=== PATIENT | female | born 1995 | race Two or more races ===

== ENCOUNTER 2020-12-14 10:10 | Outpatient (REF) | payer OTHER, SELFPAY ==
[2020-12-14 11:53] LABS: TSH reflex Free T4 0.79 uIU/mL (0.32-4.0)
[2020-12-14 12:00] LABS: Alanine Aminotransferase 24 U/L (0-31); Albumin Level 4.4 g/dL (3.5-5.0); Alkaline Phosphatase 74 U/L (39-117); Anion Gap 12 (12-20); Aspartate Amino Transferase 16 U/L (5-31); Bilirubin Total 0.9 mg/dL (0.0-1.0); Blood Urea Nitrogen 14 mg/dL (9-16); Calcium 9.1 mg/dL (8.4-10.2); Carbon Dioxide 28 mmol/L (22-29); Chloride 104 mmol/L (96-108); Cholesterol 160 mg/dL; Estimated Glomerular Filt Rate > 60; Glucose Fasting 111 mg/dL (60-99); HDL Cholesterol 44 mg/dL; LDL Cholesterol Calculated 85 mg/dl; Potassium 4.4 mmol/L (3.3-5.1); Sodium 140 mmol/L (135-145); Total Protein 7.3 g/dL (6.5-8.0); Triglycerides 157 mg/dL
== END 2020-12-14 10:11 | disposition home or self-care (01) ==
LOC: HO.HMGCLDS 10:10
PROVIDERS: PCP Nurse Practitioner Family; Visit Provider Nurse Practitioner Family
DX: Z00.00 Encounter for general adult medical examination without abnormal findings (principal)
CPT/HCPCS: 36415; 80053; 80061; 84443

== ENCOUNTER 2020-12-27 11:10 | Outpatient (REF) | payer OTHER, SELFPAY | END 2020-12-27 11:11 | disposition home or self-care (01) | LOC: HO.LAB 11:10 | PROVIDERS: Visit Provider Internal Medicine | DX: Z20.822 Contact with and (suspected) exposure to COVID-19 (principal) | CPT/HCPCS: 36415; C9803; U0003; U0005 ==

== ENCOUNTER 2021-04-18 10:56 | Emergency (ER) | payer OTHER, SELFPAY ==
--- NOTE | ~2021-04-18 | XR_ITS ---
EXAMINATION: XR CHEST CLINICAL INFORMATION: Cough. Epistaxis COMPARISON: Previous chest x-ray September 2018 TECHNIQUE: 2 views of the chest were obtained. FINDINGS: No significant abnormality is noted involving the heart, lungs, mediastinum, bony thorax or soft tissues. XR/XR chest 2V IMPRESSION: Unremarkable examination.
--- NOTE | ~2021-04-18 | US_ITS ---
EXAMINATION: US VENOUS ULTRASOUND WITH DOPPLER LOWER EXTREMITY, BILATERAL CLINICAL INFORMATION: Lower extremity pain. Assess for occult DVT. COMPARISON: Bilateral leg venous ultrasound 01/08/2016, CTA chest 01/25/2018. TECHNIQUE: Ultrasound of the deep veins is performed from the hip to the calf with compression sonography and color and pulse Doppler assessment. Spectral analysis with color-flow imaging is performed. Technically challenging exam secondary to patient body habitus. FINDINGS: RIGHT: There is normal venous compression and respiratory variation and augmented flow. The visualized common femoral vein, superficial femoral vein, profunda femoral vein, popliteal vein, and the trifurcation region shows no evidence of deep venous thrombosis. No popliteal fossa cyst demonstrated. LEFT: There is normal venous compression and respiratory variation and augmented flow. The visualized common femoral vein, superficial femoral vein, profunda femoral vein, popliteal vein, and the trifurcation region shows no evidence of deep venous thrombosis. No popliteal fossa cyst demonstrated. US/US venous duplex LE BI IMPRESSION: No DVT demonstrated in the bilateral lower extremity.
[2021-04-18 11:10] VITALS: BP 145/96; PULSE 99; RESP 18; TEMP 36.9; O2SAT 98; BMI 35.9
[2021-04-18 12:02] VITALS: BP 137/92; PULSE 94; RESP 18; O2SAT 98
--- NOTE | 2021-04-18 12:03 | PC.NURSE ---
pt reports episode in shower today where she was coughing and noticed blood in her phlegm. also reports nose bleed after getting out of shower. has h/a at this time. reports history of PE. denies SOB. vitals updated. waiting to be seen by provider.
--- NOTE | 2021-04-18 12:31 | ED_ITS ---
HPI - General Adult General Chief complaint: General Medical <BENNIE Broderick - Last Filed: 04/18/21 17:37> Stated complaint: coughing up blood <BENNIE Broderick - Last Filed: 04/18/21 17:37> Time Seen by Provider: 04/18/21 12:14 <BENNIE Broderick - Last Filed: 04/18/21 17:37> Source: patient and family <BENNIE Broderick - Last Filed: 04/18/21 17:37> Mode of arrival: ambulatory <BENNIE Broderick - Last Filed: 04/18/21 17:37> Limitations: no limitations <BENNIE Broderick Last Filed: 04/18/21 17:37> History of Present Illness HPI narrative: 26 y/o female with history of SVT s/p ablation at age 20, history of bilateral PE's at that time, history of migraines and frequent nose bleeds who presents to the ER with new onset hemoptysis that occurred when she was in the shower this morning. She states she had a coughing fit and coughed up bright red blood about 4-5 times and it self resolved. Shortly after she developed a nose bleed that stopped with direct pressure. She had severe anxiety and panic when this happened because she thought about when she had blood clots in her lungs years ago. She reports the nose bleeds are recurrent and she has seen specialists for this. She had some chest burning pain likely acid reflex last week that also reminded her of her prior SVT and blood clots. She denies SOB, fever, chills, calf pain. She has some ongoing right anterior foot and leg pain that she is getting worked up for. She has seen a specialist and gotten cortisone injections in her foot and was due to get XR's today. <BENNIE Broderick - Last Filed: 04/18/21 17:37> MD complaint: hemoptysis <BENNIE Broderick - Last Filed: 04/18/21 17:37> Onset (ago): hour(s) <BENNIE Broderick Last Filed: 04/18/21 17:37> Location: chest <BENNIE Broderick Last Filed: 04/18/21 17:37> Radiation: non-radiation <BENNIE Broderick Last Filed: 04/18/21 17:37> Severity: moderate <BENNIE Broderick Last Filed: 04/18/21 17:37> Related Data Home medications: Previous Rx's Medication Instructions Recorded cyclobenzaprine 10 mg tablet 10 mg PO BEDTIME PRN 30 Days #30 09/20/20 tab diclofenac sodium 75 mg 75 mg PO BID PRN 30 Days #60 tab 09/20/20 tablet,delayed release lnvabggbnc-advkizj-cbbiwfsl 50 1 cap PO Q6H PRN 5 Days #20 cap 11/21/20 mg-325 mg-40 mg capsule amoxicillin 875 mg tablet 875 mg PO BID #20 tab 01/26/21 azithromycin 250 mg tablet See Rx Instructions PO .COMPLEX #6 05/07/21 tab prednisone 20 mg tablet 20 mg PO DAILY 9 Days #18 tab 05/07/21 <BENNIE Broderick Last Filed: 04/18/21 17:37> Allergies/adverse reactions: Allergies Allergy/AdvReac Type Severity Reaction Status Date / Time Environmental Allergy Mild Unknown Uncoded 04/24/21 17:38 <BENNIE Broderick Last Filed: 04/18/21 17:37> Review of Systems Review of Systems: Constitutional: No Fever, No Chills ENT/Mouth: No sore throat, No Rhinorrhea, No Swallowing Difficulty, +nose bleed Eyes: No Eye Pain, No Swelling, No Redness Cardiovascular: No Chest Pain, No SOB, No Orthopnea, No Edema Respiratory: + Cough, No Sputum, No Wheezing, No dyspnea Gastrointestinal: No Nausea, No Vomiting, No Diarrhea, No abdominal Pain, No Hematochezia, No Melena Genitourinary: No Dysuria, No Urinary Frequency, No Hematuria Musculoskeletal: No joint pain, No Myalgias Skin: No Skin Lesions, No rash Neuro: No Weakness, No Numbness, + Dizziness, No Headache Psych: + Anxiety/Panic, No Depression Heme/Lymph: No Bruising, No Lymphadenopathy Endocrine: No Polyuria, No Polydipsia <BENNIE Broderick Last Filed: 04/18/21 17:37> [facility] Past Medical History Attestation statement: The following information was validated with the patient. <BENNIE Broderick - Last Filed: 04/18/21 17:37> Medical History: Medical History Pulmonary embolism SVT (supraventricular tachycardia) <BENNIE Broderick - Last Filed: 04/18/21 17:37> Surgical History: Surgical History Hx of prior ablation treatment <BENNIE Broderick - Last Filed: 04/18/21 17:37> Family History Family History: Family History Father HTN (hypertension) CVD (cardiovascular disease) Diabetes mellitus Mother No problems noted. Sister No problems noted. Maternal Grandfather History of blood clots <BENNIE Broderick - Last Filed: 04/18/21 17:37> Social History Social History: Social History Alcohol intake: current Alcohol intake frequency: does not drink <BENNIE Broderick - Last Filed: 04/18/21 17:37> Physical Exam Vital Signs: Vital Signs: Last Vital Signs Temp 98.4 F 04/18/21 11:10 Pulse 82 04/18/21 13:06 Resp 18 04/18/21 12:02 BP 140/98 H 04/18/21 13:06 Pulse Ox 98 04/18/21 12:02 Body Mass Index 35.9 Appearance: Alert. Oriented X3. No acute distress. Eyes: Pupils equal, round and reactive to light. ENT: Pharynx normal. Neck: Normal inspection. Neck supple. CVS: Normal heart rate and rhythm. Pulses normal. Respiratory: No respiratory distress. Breath sounds normal. Abdomen: Soft and nontender. +BS x4 Skin: Skin warm and dry. Normal skin color. Normal skin turgor. No rashes. Extremities: No lower extremity edema. Negative Corina's sign. Neuro: Oriented X 3. No motor deficit. No sensory deficit. <BENNIE Broderick - Last Filed: 04/18/21 17:37> Vital Signs: Last Vital Signs Temp 98.4 F 04/18/21 11:10 Pulse 82 04/18/21 13:06 Resp 18 04/18/21 12:02 BP 140/98 H 04/18/21 13:06 Pulse Ox 98 04/18/21 12:02 Body Mass Index 35.9 <Hasmukh Snow MD - Last Filed: 05/21/21 19:54> Course Course Course Narrative: 26 y/o female presenting with brief hemoptysis associated with nose bleed. Given her history will get LE doppers, DDIMER and lab workup. She is not tachycardic, hypoxic or SOB. <BENNIE Broderick - Last Filed: 04/18/21 17:37> I have reviewed the chart <Hasmukh Snow MD - Last Filed: 05/21/21 19:54> Reevaluation(s) Reevaluation #1: LE dopplers are negative. DDIMER negative. CXR negative. Suspect her hemoptysis is directly related to nose bleed as it quickly resolved and was miguelina blood, likely coming from the posterior nose. She has had no recurrence here. She was counseled on management of recurrent epistaxis with nasal moisture and humidification. She will follow up with her doctor and return to the ER if any hemoptysis recurs. Case was d/w Dr. Snow <BENNIE Broderick - Last Filed: 04/18/21 17:37> Medical Decision Making Lab Data Result diagrams: : 04/18/21 12:38 04/18/21 12:38 <BENNIE Broderick - Last Filed: 04/18/21 17:37> Labs: Lab Results 04/18/21 04/18/21 04/18/21 Range/Units 12:37 12:38 12:38 WBC 5.6 (4.8-10.8) X10*3/uL RBC 4.32 (4.20-5.50) X10*6/uL Hgb 13.3 (12.0-16.0) g/dl Hct 38.1 (37-47) % MCV 88.2 (80-98) fL MCH 30.8 (27.0-33.0) pg MCHC 34.9 (31.0-35.0) g/dl RDW 12.5 (11.0-16.0) % Plt Count 344 (160-400) X10*3/uL MPV 8.8 L (9.4-12.3) fL Immature Gran % (Auto) 0.4 (0.0-0.4) % Neut % (Auto) 47.6 (45-73) % Lymph % (Auto) 40.7 H (20-40) % [place] % (Auto) 8.8 (2-11) % Eos % (Auto) 1.4 (0-4) % Baso % (Auto) 1.1 (0-2) % Lymph # (Auto) 2.3 (1.2-4.9) X10*3/uL [place] # (Auto) 0.5 (0.1-1.2) X10*3/uL Eos # (Auto) 0.1 (0.0-0.4) X10*3/uL Baso # (Auto) 0.1 (0.0-0.2) X10*3/uL Abs Immat Gran (auto) 0.02 (0.00-0.03) X10*3/uL Absolute Neuts (auto) 2.7 (2.0-8.3) X10*3/uL Absolute Nucleated RBC 0.000 (0.0-0.012) X10*3/uL Nucleated RBC % (auto) 0.0 (0.0-0.2) /100WBC PT 11.6 (10.8-13.0) SEC INR 1.0 (0.9-1.1) APTT 30.9 (24.1-38.0) SEC D-Dimer < 200 NG/ML Sodium (135-145) mmol/L Potassium (3.3-5.1) mmol/L Chloride (96-108) mmol/L Carbon Dioxide (22-29) mmol/L Anion Gap (12-20) BUN (9-16) mg/dL Creatinine (0.5-1.4) mg/dL Estim Creat Clear Calc Estimated GFR Random Glucose (60-115) mg/dL Calcium (8.4-10.2) mg/dL Magnesium (1.6-2.6) mg/dL Total Bilirubin (0.0-1.0) mg/dL Direct Bilirubin (0.0-0.5) mg/dL AST (5-31) U/L ALT (0-31) U/L Alkaline Phosphatase (39-117) U/L Total Protein (6.5-8.0) g/dL Albumin (3.5-5.0) g/dL 04/18/21 Range/Units 12:38 WBC (4.8-10.8) X10*3/uL RBC (4.20-5.50) X10*6/uL Hgb (12.0-16.0) g/dl Hct (37-47) % MCV (80-98) fL MCH (27.0-33.0) pg MCHC (31.0-35.0) g/dl RDW (11.0-16.0) % Plt Count (160-400) X10*3/uL MPV (9.4-12.3) fL Immature Gran % (Auto) (0.0-0.4) % Neut % (Auto) (45-73) % Lymph % (Auto) (20-40) % [place] % (Auto) (2-11) % Eos % (Auto) (0-4) % Baso % (Auto) (0-2) % Lymph # (Auto) (1.2-4.9) X10*3/uL [place] # (Auto) (0.1-1.2) X10*3/uL Eos # (Auto) (0.0-0.4) X10*3/uL Baso # (Auto) (0.0-0.2) X10*3/uL Abs Immat Gran (auto) (0.00-0.03) X10*3/uL Absolute Neuts (auto) (2.0-8.3) X10*3/uL Absolute Nucleated RBC (0.0-0.012) X10*3/uL Nucleated RBC % (auto) (0.0-0.2) /100WBC PT (10.8-13.0) SEC INR (0.9-1.1) APTT (24.1-38.0) SEC D-Dimer NG/ML Sodium 140 (135-145) mmol/L Potassium 4.1 (3.3-5.1) mmol/L Chloride 110 H (96-108) mmol/L Carbon Dioxide 24 (22-29) mmol/L Anion Gap 10 L (12-20) BUN 11 (9-16) mg/dL Creatinine 0.61 (0.5-1.4) mg/dL Estim Creat Clear Calc 159.0 Estimated GFR > 60 Random Glucose 112 (60-115) mg/dL Calcium 9.0 (8.4-10.2) mg/dL Magnesium 1.8 (1.6-2.6) mg/dL Total Bilirubin 0.8 (0.0-1.0) mg/dL Direct Bilirubin 0.3 (0.0-0.5) mg/dL AST 19 (5-31) U/L ALT 22 (0-31) U/L Alkaline Phosphatase 72 (39-117) U/L Total Protein 6.6 (6.5-8.0) g/dL Albumin 4.0 (3.5-5.0) g/dL <BENNIE Broderick - Last Filed: 04/18/21 17:37> Lab Results 04/18/21 04/18/21 04/18/21 Range/Units 12:37 12:38 12:38 WBC 5.6 (4.8-10.8) X10*3/uL RBC 4.32 (4.20-5.50) X10*6/uL Hgb 13.3 (12.0-16.0) g/dl Hct 38.1 (37-47) % MCV 88.2 (80-98) fL MCH 30.8 (27.0-33.0) pg MCHC 34.9 (31.0-35.0) g/dl RDW 12.5 (11.0-16.0) % Plt Count 344 (160-400) X10*3/uL MPV 8.8 L (9.4-12.3) fL Immature Gran % (Auto) 0.4 (0.0-0.4) % Neut % (Auto) 47.6 (45-73) % Lymph % (Auto) 40.7 H (20-40) % [place] % (Auto) 8.8 (2-11) % Eos % (Auto) 1.4 (0-4) % Baso % (Auto) 1.1 (0-2) % Lymph # (Auto) 2.3 (1.2-4.9) X10*3/uL [place] # (Auto) 0.5 (0.1-1.2) X10*3/uL Eos # (Auto) 0.1 (0.0-0.4) X10*3/uL Baso # (Auto) 0.1 (0.0-0.2) X10*3/uL Abs Immat Gran (auto) 0.02 (0.00-0.03) X10*3/uL Absolute Neuts (auto) 2.7 (2.0-8.3) X10*3/uL Absolute Nucleated RBC 0.000 (0.0-0.012) X10*3/uL Nucleated RBC % (auto) 0.0 (0.0-0.2) /100WBC PT 11.6 (10.8-13.0) SEC INR 1.0 (0.9-1.1) APTT 30.9 (24.1-38.0) SEC D-Dimer < 200 NG/ML Sodium (135-145) mmol/L Potassium (3.3-5.1) mmol/L Chloride (96-108) mmol/L Carbon Dioxide (22-29) mmol/L Anion Gap (12-20) BUN (9-16) mg/dL Creatinine (0.5-1.4) mg/dL Estim Creat Clear Calc Estimated GFR Random Glucose (60-115) mg/dL Calcium (8.4-10.2) mg/dL Magnesium (1.6-2.6) mg/dL Total Bilirubin (0.0-1.0) mg/dL Direct Bilirubin (0.0-0.5) mg/dL AST (5-31) U/L ALT (0-31) U/L Alkaline Phosphatase (39-117) U/L Total Protein (6.5-8.0) g/dL Albumin (3.5-5.0) g/dL 04/18/21 Range/Units 12:38 WBC (4.8-10.8) X10*3/uL RBC (4.20-5.50) X10*6/uL Hgb (12.0-16.0) g/dl Hct (37-47) % MCV (80-98) fL MCH (27.0-33.0) pg MCHC (31.0-35.0) g/dl RDW (11.0-16.0) % Plt Count (160-400) X10*3/uL MPV (9.4-12.3) fL Immature Gran % (Auto) (0.0-0.4) % Neut % (Auto) (45-73) % Lymph % (Auto) (20-40) % [place] % (Auto) (2-11) % Eos % (Auto) (0-4) % Baso % (Auto) (0-2) % Lymph # (Auto) (1.2-4.9) X10*3/uL [place] # (Auto) (0.1-1.2) X10*3/uL Eos # (Auto) (0.0-0.4) X10*3/uL Baso # (Auto) (0.0-0.2) X10*3/uL Abs Immat Gran (auto) (0.00-0.03) X10*3/uL Absolute Neuts (auto) (2.0-8.3) X10*3/uL Absolute Nucleated RBC (0.0-0.012) X10*3/uL Nucleated RBC % (auto) (0.0-0.2) /100WBC PT (10.8-13.0) SEC INR (0.9-1.1) APTT (24.1-38.0) SEC D-Dimer NG/ML Sodium 140 (135-145) mmol/L Potassium 4.1 (3.3-5.1) mmol/L Chloride 110 H (96-108) mmol/L Carbon Dioxide 24 (22-29) mmol/L Anion Gap 10 L (12-20) BUN 11 (9-16) mg/dL Creatinine 0.61 (0.5-1.4) mg/dL Estim Creat Clear Calc 159.0 Estimated GFR > 60 Random Glucose 112 (60-115) mg/dL Calcium 9.0 (8.4-10.2) mg/dL Magnesium 1.8 (1.6-2.6) mg/dL Total Bilirubin 0.8 (0.0-1.0) mg/dL Direct Bilirubin 0.3 (0.0-0.5) mg/dL AST 19 (5-31) U/L ALT 22 (0-31) U/L Alkaline Phosphatase 72 (39-117) U/L Total Protein 6.6 (6.5-8.0) g/dL Albumin 4.0 (3.5-5.0) g/dL <Hasmukh Snow MD - Last Filed: 05/21/21 19:54> Discharge Plan Discharge Clinical Impression: Epistaxis <BENNIE Broderick - Last Filed: 04/18/21 17:37> Patient Disposition: Home, Self-Care <BENNIE Broderick - Last Filed: 04/18/21 17:37> Instructions: Nosebleed (ED) <BENNIE Broderick - Last Filed: 04/18/21 17:37> Additional Instructions: All of your testing today was normal. Your coughing of blood was most likely due to posterior nose bleed. Recommend use of humidifier in your bedroom and use of over the counter nasal saline two times per day to keep the nasal mucosa moist. Follow up with your doctor. If you have recurrent coughing of blood come back to the ER for further evaluation. <BENNIE Broderick - Last Filed: 04/18/21 17:37> Prescriptions: No Action diclofenac sodium 75 mg tablet,delayed release (DR/EC) 75 mg PO BID PRN (Reason: pain) 30 Days Qty: 60 RF: 0 cyclobenzaprine 10 mg tablet 10 mg PO BEDTIME PRN (Reason: muscle spasm) 30 Days Qty: 30 RF: 0 fxwihkoslf-crfjovl-ffjrbaoz [Fiorinal] 50-325-40 mg capsule 1 cap PO Q6H PRN (Reason: pain) 5 Days Qty: 20 RF: 0 azithromycin 250 mg tablet See Rx Instructions PO .COMPLEX Qty: 6 RF: 0 prednisone 20 mg tablet 20 mg PO DAILY 9 Days Qty: 18 RF: 0 amoxicillin 875 mg tablet 875 mg PO BID Qty: 20 RF: 0 <BENNIE Broderick - Last Filed: 04/18/21 17:37> Interventions: ED Discharge Assessment Last Done: 04/18/21 14:57 <BENNIE Broderick - Last Filed: 04/18/21 17:37> Discharge Date/Time: 04/18/21 14:58 <BENNIE Broderick - Last Filed: 04/18/21 17:37>
[2021-04-18 12:43] LABS: MANUAL DIFF FLAG NO
[2021-04-18 12:44] LABS: Basophils Absolute Auto 0.1 X10*3/uL (0.0-0.2); Basophils Percent Auto 1.1 % (0-2); Eosinophils Absolute Auto 0.1 X10*3/uL (0.0-0.4); Eosinophils Percent Auto 1.4 % (0-4); Hematocrit 38.1 % (37-47); Hemoglobin 13.3 g/dl (12.0-16.0); Imm Gran Abs Auto 0.02 X10*3/uL (0.00-0.03); Imm Gran Pct Auto 0.4 % (0.0-0.4); Lymphocytes Absolute Auto 2.3 X10*3/uL (1.2-4.9); Lymphocytes Percent Auto 40.7 % (20-40); Mean Corpuscular HGB Conc 34.9 g/dl (31.0-35.0); Mean Corpuscular Hemoglobin 30.8 pg (27.0-33.0); Mean Corpuscular Volume 88.2 fL (80-98); Mean Platelet Volume 8.8 fL (9.4-12.3); Monocytes Absolute Auto 0.5 X10*3/uL (0.1-1.2); Monocytes Percent Auto 8.8 % (2-11); Neutrophils Absolute Auto 2.7 X10*3/uL (2.0-8.3); Neutrophils Percent Auto 47.6 % (45-73); Platelet Count 344 X10*3/uL (160-400); Red Blood Count 4.32 X10*6/uL (4.20-5.50); Red Cell Distribution Width 12.5 % (11.0-16.0); White Blood Count 5.6 X10*3/uL (4.8-10.8)
[2021-04-18 12:53] LABS: Prothrombin Time 11.6 SEC (10.8-13.0)
[2021-04-18 12:56] LABS: Partial Thromboplastin Time 30.9 SEC (24.1-38.0)
[2021-04-18 12:58] LABS: D Dimer < 200 NG/ML
[2021-04-18 13:04] VITALS: BP 158/89; PULSE 91
[2021-04-18 13:05] VITALS: BP 143/83; PULSE 92
[2021-04-18 13:06] VITALS: BP 140/98; PULSE 82
[2021-04-18 13:07] LABS: Alanine Aminotransferase 22 U/L (0-31); Alkaline Phosphatase 72 U/L (39-117); Anion Gap 10 (12-20); Aspartate Amino Transferase 19 U/L (5-31); Bilirubin Direct 0.3 mg/dL (0.0-0.5); Bilirubin Total 0.8 mg/dL (0.0-1.0); Blood Urea Nitrogen 11 mg/dL (9-16); Carbon Dioxide 24 mmol/L (22-29); Chloride 110 mmol/L (96-108); Estimated Glomerular Filt Rate > 60; Glucose Random 112 mg/dL (60-115); Magnesium 1.8 mg/dL (1.6-2.6); Potassium 4.1 mmol/L (3.3-5.1); Sodium 140 mmol/L (135-145); Total Protein 6.6 g/dL (6.5-8.0)
== END 2021-04-18 14:58 | disposition home or self-care (01) ==
PROVIDERS: Physician Assistant; Emergency Provider Emergency Medicine; PCP Nurse Practitioner Family
DX: R04.0 Epistaxis (principal); M79.604 Pain in right leg; Z86.711 Personal history of pulmonary embolism
CPT/HCPCS: 36415; 71046; 80048; 80076; 83735; 85025; 85379; 85610; 85730; 93970; 99284

== ENCOUNTER 2021-04-19 11:00 | Outpatient (REF) | payer OTHER, SELFPAY ==
--- NOTE | ~2021-04-19 | XR_ITS ---
EXAMINATION: XR FOOT, RIGHT CLINICAL INFORMATION: Pain in right foot COMPARISON: Right foot radiograph from 07/03/2018 TECHNIQUE: AP, lateral, and oblique views of the right foot. FINDINGS: No acute visible fracture or dislocation. Joint spaces and alignment are maintained. Soft tissues are unremarkable. XR/XR foot RT min 3V IMPRESSION: No acute visible fracture or dislocation.
== END 2021-04-19 11:01 | disposition home or self-care (01) ==
LOC: HO.HMGCX 11:00
PROVIDERS: PCP Nurse Practitioner Family; Visit Provider Nurse Practitioner Family
DX: M79.671 Pain in right foot (principal)
CPT/HCPCS: 73630

== ENCOUNTER 2021-05-07 14:44 | Outpatient (REF) | payer OTHER, SELFPAY ==
--- NOTE | ~2021-05-07 | XR_ITS ---
EXAMINATION: XR CHEST CLINICAL INFORMATION: Cough COMPARISON: Chest radiographs 04/18/2021, 09/30/2018 TECHNIQUE: 2 views of the chest were obtained. FINDINGS: The lungs are clear. The vascularity is normal. There is no airspace consolidation or effusion. The heart is normal in size. The hilar and mediastinal contours and visualized bony structures are unremarkable. XR/XR chest 2V IMPRESSION: Unremarkable examination.
== END 2021-05-07 14:45 | disposition home or self-care (01) ==
LOC: HO.HMGCX 14:44
PROVIDERS: PCP Nurse Practitioner Family; Visit Provider Nurse Practitioner Family
DX: R05 Cough (principal)
CPT/HCPCS: 71046

== ENCOUNTER 2021-06-11 08:05 | Outpatient (REF) | payer OTHER, SELFPAY ==
--- NOTE | ~2021-06-11 | MR_ITS ---
EXAMINATION: MR FOOT WITHOUT CONTRAST, RIGHT CLINICAL INFORMATION: Bilateral foot pain radiating to the dorsum and up the lower leg. Remote injury. COMPARISON: Most recent right foot radiographs dated 04/19/2021. TECHNIQUE: Multisequence MR imaging of the right foot was obtained without contrast on a high-field strength scanner. FINDINGS: BONE: No abnormal marrow signal. No stress reaction or fracture. No talar osteochondral lesion. MUSCLES/TENDONS: The visualized flexor and extensor tendons are intact. LIGAMENTS: Intact. SOFT TISSUES: Small synovial recess lateral to the talonavicular joint. No associated soft tissue edema. MR/MR foot RT wo con IMPRESSION: 1. No osseous abnormality. No stress reaction or fracture. 2. Small synovial recess lateral to the talonavicular joint without soft tissue edema. 3. Otherwise unremarkable examination.
== END 2021-06-11 08:06 | disposition home or self-care (01) ==
LOC: HO.MRI 08:05
PROVIDERS: PCP Nurse Practitioner Family; Visit Provider Nurse Practitioner Family
DX: M79.671 Pain in right foot (principal); M79.89 Other specified soft tissue disorders
CPT/HCPCS: 73718

== ENCOUNTER 2022-07-25 06:56 | Emergency (ER) | payer OTHER, SELFPAY ==
[2022-07-25] VITALS (7 sets, daily range): BP systolic 142–155; BP diastolic 89–99; PULSE 79–98; RESP 16–20; TEMP 36.2–37.1; O2SAT 96–100; BMI 39.9
--- NOTE | ~2022-07-25 | MR_ITS ---
EXAMINATION MRA NECK WITH AND WITHOUT CONTRAST CLINICAL INFORMATION: Assess for dissection. Upper extremity paresthesias and neck pain. COMPARISON: CTA of the head and neck area and 07/25/2022. TECHNIQUE: 2D [id number] MR angiography was performed through the neck and axial source images were reviewed along with rotating MIPs. Fat-saturated axial T1 and T2 sequences through the neck were obtained. Subsequently, phase contrast and bolus IV enhanced MR angiography was performed through the neck vasculature. The degree of stenosis is based off NASCET criteria. Source images were reviewed along with MIPs. Angled MIPs and volumetric reconstructions were independently degenerated. A total of 10 ml of intravenous Gadavist was utilized for the examination. FINDINGS: There is a classic configuration of the aortic arch, and the great vessels of the neck are patent. The common carotid arteries are patent bilaterally. The carotid bifurcations appear normal without evidence of stenosis, and the bilateral cervical internal carotid arteries are patent. The origin of the right vertebral artery is well demonstrated, and the cervical right vertebral artery is uniformly patent throughout its course extending intradurally. Normal flow voids from the vessel demonstrated on the fat-saturated images. On the left, the origin of the vertebral artery is poorly demonstrated, and the V1 and proximal V2 segments of the left vertebral artery have irregular, and thinner caliber compared to the right with diffusely lower intensity. The caliber of the vessel is narrowest at the level of C3. The caliber of the left vertebral artery becomes more uniform at the level of C2-C3, and cephalad to this flow voids are maintained. Although the caliber of the left vertebral artery is narrowed compared to the right, there is no definite evidence of a dissection flap although there is some fullness of the venous structures in the foramina transversaria, more prominent on the left. Intradurally flow voids from the bilateral vertebral arteries are demonstrated. The right intradural vertebral artery is dominant. The basilar artery appears patent. Other: There is no cervical lymphadenopathy. There are retention cysts in the bilateral maxillary sinuses. There are no acute intracranial findings. MR/MR angio neck wo/w con IMPRESSION: 1. There is irregular signal from and caliber of the V2 segment of the left vertebral artery compared to the right as described above, with fullness of the surrounding venous structures, but there is no definite evidence of a dissection flap. 2. The right vertebral artery and the bilateral carotid arteries have normal caliber without evidence of flow-limiting stenosis, or vascular malformation.
--- NOTE | ~2022-07-25 | CT_ITS ---
CT ANGIOGRAM NECK WITH CONTRAST CT ANGIOGRAM BRAIN WITH CONTRAST CLINICAL INFORMATION: Bilateral upper extremity tingling/presyncope. COMPARISON: None available. TECHNIQUE: Test bolus sequences followed by intravenous administration 70 mL of Omnipaque 350. Helical imaging was performed in the axial plane from the thoracic inlet to the skull vertex. Delayed postcontrast imaging of the head was also performed. The data was processed at the senior technologist workstation for generation of MIP sequences. Angled MIPs and volume rendered reformatted images were also generated at an offline 3D workstation under concurrent supervision. Stenoses are assessed in accordance with NASCET criteria unless otherwise indicated. This CT examination was performed using dose optimization techniques as appropriate, variously including the following: *Automated exposure control *Adjustment of mA and/or kV according to patient size (this includes techniques or standardized protocols for targeted exams where dose is matched to indication/reason for exam; i.e. extremities or head) *Use of iterative reconstruction technique FINDINGS: BRAIN: [There is no intracranial hemorrhage, hydrocephalus, extra-axial surface collection, midline shift, or other herniation pattern. Callahan to white matter differentiation is diffusely maintained without evidence of an evolved acute territorial infarct. The basilar cisterns are preserved. No significant soft tissue abnormality. No acute osseous abnormality. Large retention cyst within the right maxillary sinus and small retention cyst within the left maxillary sinus. The remaining paranasal sinuses and the mastoid air cells are clear. CERVICAL SOFT TISSUES AND LUNG APICES: Imaged upper lungs are clear. There are no significant soft tissue findings within the neck. Mild cervical spondylosis. NECK CTA: [There is a classic 3 vessel configuration of the aortic arch. Proximal arch vessels are non-stenotic. The right vertebral artery is dominant. Apparent focal attenuation/decreased luminal caliber of the left cervical vertebral artery at the C3 level may be secondary to dental streak artifact which partially obscures this area though a true stenosis would be difficult to exclude. Both common and internal carotid arteries are normal in course and caliber.] BRAIN CTA: [There is normal opacification of major intracranial arteries. No focal flow-limiting stenosis nor discrete proximal large artery occlusion. No aneurysm. Timing of the contrast bolus allows assessment of the major dural venous sinuses, which all opacify normally] CT/CT angio head neck IMPRESSION: - Apparent focal attenuation/decreased luminal caliber of the left cervical vertebral artery at the C3 level may be secondary to dental streak artifact which partially obscures this area though a true stenosis would be difficult to exclude. Noncontrast fat-suppressed T1 and T2-weighted MRI imaging of the neck and a noncontrast and contrast-enhanced MRA of the neck would be helpful in more definitive evaluation. - Large retention cyst within the right maxillary sinus and small retention cyst within the left maxillary sinus. The remaining paranasal sinuses and the mastoid air cells are clear. - Otherwise unremarkable CTA of the head and neck.
[2022-07-25] MEDS: Acetaminophen 325 MG TABLET 650 MG PO (07:28)
--- NOTE | 2022-07-25 09:06 | ECG_ITS ---
Test Reason : near syncope Blood Pressure : / mmHG Vent. Rate : 083 BPM Atrial Rate : 083 BPM P-R Int : 170 ms QRS Dur : 098 ms QT Int : 378 ms P-R-T Axes : 022 024 030 degrees QTc Int : 444 ms Normal sinus rhythm Normal ECG When compared with ECG of 01-OCT-2018 00:40, No significant change was found Referred By: Berna Regalado Electronically Signed By:JACQUE BUCHANAN
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
[2022-07-25 10:29] LABS: MANUAL DIFF FLAG NO
[2022-07-25 10:30] LABS: Basophils Absolute Auto 0.1 X10*3/uL (0.0-0.2); Basophils Percent Auto 0.7 % (0-2); Eosinophils Percent Auto 0.4 % (0-4); Hematocrit 41.5 % (37.0-47.0); Hemoglobin 14.1 g/dl (12.0-16.0); Imm Gran Abs Auto 0.03 X10*3/uL (0.00-0.03); Imm Gran Pct Auto 0.4 % (0.0-0.4); Lymphocytes Percent Auto 24.3 % (20-40); Mean Corpuscular Hemoglobin 30.8 pg (27.0-33.0); Mean Corpuscular Volume 90.6 fL (80.0-98.0); Mean Platelet Volume 8.9 fL (9.4-12.3); Monocytes Absolute Auto 0.6 X10*3/uL (0.1-1.2); Monocytes Percent Auto 6.6 % (2-11); Neutrophils Absolute Auto 5.7 x10*3/uL (2.0-8.3); Neutrophils Percent Auto 67.6 % (45-73); Platelet Count 432 X10*3/uL (160-400); Red Blood Count 4.58 X10*6/uL (4.20-5.50); Red Cell Distribution Width 12.8 % (11.0-16.0); White Blood Count 8.4 X10*3/uL (4.8-10.8)
[2022-07-25 10:32] LABS: Appearance Urine Cloudy; Color Urine Yellow; Glucose Urine UA Negative (Negative); Leukocyte Esterase Urine Negative (Negative); Nitrite Urine Negative (Negative); PH 6.5 (5.0-9.0); Specific Gravity - Urine >= 1.030 (1.005-1.025); Urine Blood Negative (Negative); Urine Ketones Negative (Negative); Urine Protein Negative (Neg-Trace)
[2022-07-25 10:33] LABS: UPreg QC Valid YES; Urine Pregnancy NEGATIVE (NEGATIVE)
[2022-07-25] MEDS: Lidocaine 4 % Patch ADH..PATCH 1 PATCH TRANSDERMA ×2 (10:37→20:01)
[2022-07-25] MEDS: diazePAM 2 MG TABLET PO (10:38)
[2022-07-25] MEDS: 0.9 % Sodium Chloride 1,000 ML 999 ML IV (10:39)
[2022-07-25 10:51] LABS: Alanine Aminotransferase 29 U/L (0-31); Albumin Level 4.2 g/dL (3.5-5.0); Alkaline Phosphatase 84 U/L (39-117); Anion Gap 15 (12-20); Aspartate Amino Transferase 22 U/L (5-31); Bilirubin Direct 0.3 mg/dL (0.0-0.5); Bilirubin Total 0.9 mg/dL (0.0-1.0); Blood Urea Nitrogen 18 mg/dL (9-16); Calcium 9.2 mg/dL (8.4-10.2); Carbon Dioxide 25 mmol/L (22-29); Chloride 105 mmol/L (96-108); Creatinine Clr Calc Pharmacy 169.7; Estimated Glomerular Filt Rate > 60; Glucose Random 124 mg/dL (60-115); Magnesium 1.9 mg/dL (1.6-2.6); Potassium 4.6 mmol/L (3.3-5.1); Sodium 140 mmol/L (135-145); Total Protein 7.3 g/dL (6.5-8.0)
[2022-07-25 11:01] LABS: Troponin-I High Sensitivity < 3.5 ng/L (<3.5-17.0)
[2022-07-25] MEDS: iohexoL 350 MG/ML 100 ML INFUS..BTL IV (11:58)
[2022-07-25 18:50] LABS: COVID-19 Test Negative (Negative); IDNOW Serial# 16C4AD1C
[2022-07-25] MEDS: Aspirin Enteric Coated 81 MG TABLET.DR PO (18:51)
[2022-07-25] MEDS: Aspirin Enteric Coated 81 MG TABLET.DR 243 MG PO (20:00)
[2022-07-25] MEDS: Clopidogrel Bisulfate 75 MG TABLET PO (20:00)
[2022-07-25] MEDS: Cyclobenzaprine HCl 5 MG TABLET PO (20:00)
== END 2022-07-25 21:30 | disposition short-term general hospital (02) ==
PROVIDERS: Physician Assistant; Emergency Provider Emergency Medicine; PCP Nurse Practitioner Family
DX: M47.022 Vertebral artery compression syndromes, cervical region (principal); J34.1 Cyst and mucocele of nose and nasal sinus; M54.2 Cervicalgia; R42 Dizziness and giddiness; Z20.822 Contact with and (suspected) exposure to COVID-19; I47.1 Supraventricular tachycardia; Z86.711 Personal history of pulmonary embolism; Z79.899 Other long term (current) drug therapy
CPT/HCPCS: 36415; 70496; 70498; 70549; 80048; 80076; 81003; 81025; 83735; 84484; 85025; 85610; 87635; 93005; 96361; 96374; 99284; 99285; A9585; Q9967

== ENCOUNTER 2022-08-07 07:52 | Outpatient (REF) | payer OTHER, SELFPAY ==
[2022-08-09 23:26] LABS: TS Negative Control Passed; TS Panel A 0; TS Panel B 0; TS Positive Control Passed; TSpotTB Negative (Negative)
== END 2022-08-07 07:53 | disposition home or self-care (01) ==
LOC: HO.HMGCLDS 07:52
PROVIDERS: PCP Nurse Practitioner Family; Visit Provider Nurse Practitioner Family
DX: Z11.1 Encounter for screening for respiratory tuberculosis (principal)
CPT/HCPCS: 36415; 86481

== ENCOUNTER 2022-08-29 17:11 | Outpatient (REF) | payer OTHER, SELFPAY ==
--- NOTE | ~2022-08-29 | XR_ITS ---
EXAMINATION: XR CERVICAL SPINE CLINICAL INFORMATION: Neck pain. COMPARISON: None TECHNIQUE: 3 views of the cervical spine were obtained. FINDINGS: There is mild straightening of cervical lordosis. The vertebral heights, alignment and disc heights are preserved. No visible acute fracture, dislocation or subluxation seen. The prevertebral soft tissues are normal. XR/XR cervical spine 2V IMPRESSION: Mild straightening of cervical lordosis likely spasm. No visible acute fracture or dislocation seen.
== END 2022-08-29 17:12 | disposition home or self-care (01) ==
LOC: HO.XRAY 17:11
PROVIDERS: PCP Nurse Practitioner Family; Visit Provider Nurse Practitioner Family
DX: M54.2 Cervicalgia (principal)
CPT/HCPCS: 72040

== ENCOUNTER 2022-09-12 14:12 | Outpatient (REF) | payer OTHER, SELFPAY ==
[2022-09-12 17:11] LABS: HCG Quantitative < 2 mIU/mL
== END 2022-09-12 14:13 | disposition home or self-care (01) ==
LOC: HO.HMGCLDS 14:12
PROVIDERS: PCP Nurse Practitioner Family; Visit Provider Nurse Practitioner Family
DX: N92.6 Irregular menstruation, unspecified (principal)
CPT/HCPCS: 36415; 84702

== ENCOUNTER 2022-10-16 16:55 | Outpatient (REF) | payer MEDICAID, SELFPAY ==
[2022-10-16 17:47] LABS: Influenza A PCR POSITIVE (Negative); Influenza B PCR NEGATIVE (Negative); Resp Syncy Virus RNA Qual PCR NEGATIVE (Negative); SARS COV2 PCR INHOUSE NEGATIVE (Negative)
== END 2022-10-16 16:56 | disposition home or self-care (01) ==
LOC: HO.LNP 16:55
PROVIDERS: Visit Provider Nurse Practitioner Family
DX: Z20.822 Contact with and (suspected) exposure to COVID-19 (principal); B34.9 Viral infection, unspecified
CPT/HCPCS: 0241U

== ENCOUNTER 2023-03-14 08:00 | Outpatient (RCR) | payer OTHER, SELFPAY ==
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
--- NOTE | 2023-04-21 13:14 | MHC.PT.DC ---
[facility] [place] Office [place] Office [place] Office [address] Ankur Reeves [address] [phone] F: [phone] F: [phone] F: [phone] F: [phone] Physical Therapy Discharge Report Diagnosis: NECK PAIN (KP) Date of Surgery: N/A Date of Evaluation: 12/11/22 Date of Discharge: 04/21/23 Treatments to Date: 12 Cancellations to Date: 10 No Shows to Date: 0 Discharge Status: Achieved Goals Improved Function Independent with HEP Discharge Summary: At last attnended visit pt demonstrates full cervical and UE ROM and strength. She is independent with HEP and DCed at this time Electronically signed by: Karie Lamb PT DPT Please sign and return to therapist. Thank you for your referral.
== END 2023-04-21 13:14 | disposition home or self-care (01) ==
LOC: HO.PT 08:00
PROVIDERS: PCP Nurse Practitioner Family; Visit Provider Nurse Practitioner Family
DX: M50.90 Cervical disc disorder, unspecified, unspecified cervical region (principal)
CPT/HCPCS: 97110; 97140; 97161

== ENCOUNTER 2023-06-02 13:28 | Outpatient (AMB) | payer OTHER, SELFPAY ==
[2023-06-02 13:37] VITALS: BP 128/70; PULSE 97; O2SAT 98; BMI 46.0
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
== END 2023-06-02 14:09 | disposition home or self-care (01) ==
PROVIDERS: PCP Nurse Practitioner Family; Visit Provider Nurse Practitioner Family
DX: M50.90 Cervical disc disorder, unspecified, unspecified cervical region (principal); F07.81 Postconcussional syndrome
CPT/HCPCS: 99213

== ENCOUNTER 2023-06-02 14:10 | Outpatient (REF) | payer OTHER, SELFPAY ==
--- NOTE | ~2023-06-02 | XR_ITS ---
EXAMINATION: XR ANKLE, LEFT CLINICAL INFORMATION: Left ankle and foot pain. COMPARISON: None available. TECHNIQUE: AP, lateral, and mortise views of the left ankle. FINDINGS: Prominent circumferential soft tissue swelling. Small tibiotalar joint effusion. No acute fracture or dislocation. The ankle mortise is maintained. No joint space narrowing or marginal osteophytes. No osseous erosion. No abnormal soft tissue calcification. XR/XR ankle LT min 3V IMPRESSION: Prominent circumferential soft tissue swelling without displaced fracture. Small tibiotalar joint effusion.
[2023-06-02 16:22] LABS: MANUAL DIFF FLAG NO
[2023-06-02 16:39] LABS: Basophils Absolute Auto 0.1 X10*3/uL (0.0-0.2); Basophils Percent Auto 0.8 % (0-2); Eosinophils Absolute Auto 0.1 X10*3/uL (0.0-0.4); Hematocrit 40.1 % (37.0-47.0); Hemoglobin 13.4 g/dl (12.0-16.0); Imm Gran Abs Auto 0.07 X10*3/uL (0.00-0.03); Lymphocytes Percent Auto 26.8 % (20-40); Mean Corpuscular HGB Conc 33.4 g/dl (31.0-35.0); Mean Corpuscular Hemoglobin 30.2 pg (27.0-33.0); Mean Corpuscular Volume 90.3 fL (80.0-98.0); Mean Platelet Volume 10.3 fL (9.4-12.3); Monocytes Absolute Auto 0.7 X10*3/uL (0.1-1.2); Monocytes Percent Auto 9.2 % (2-11); Neutrophils Absolute Auto 4.5 x10*3/uL (2.0-8.3); Neutrophils Percent Auto 61.2 % (45-73); Platelet Count 370 X10*3/uL (160-400); Red Blood Count 4.44 X10*6/uL (4.20-5.50); Red Cell Distribution Width 12.5 % (11.0-16.0); White Blood Count 7.3 X10*3/uL (4.8-10.8)
[2023-06-02 16:41] LABS: Appearance Urine Clear; Color Urine Yellow; Glucose Urine UA 100 mg/dL (Negative); Leukocyte Esterase Urine Negative (Negative); Nitrite Urine Negative (Negative); Specific Gravity - Urine 1.025 (1.005-1.025); Urine Blood Negative (Negative); Urine Ketones Negative (Negative); Urine Protein Negative (Neg-Trace)
[2023-06-02 17:11] LABS: Cholesterol 135 mg/dL; HDL Cholesterol 41 mg/dL; LDL Cholesterol Calculated 57 mg/dl; Triglycerides 185 mg/dL
[2023-06-02 17:26] LABS: TSH reflex Free T4 0.51 uIU/mL (0.32-4.0)
[2023-06-03 04:48] LABS: HBS Num1 6.56 mIU/mL (0-7.99); HBc Num1 0.12 S/CO (0.00-0.79); HBsAGNum1 0.34 S/CO (0.00-0.99); Hepatitis A Antibody IgM 0.18 Index (0-0.79); Hepatitis B Core Antibody Nonreactive (Nonreactive); Hepatitis B Surface Antigen Negative (Negative); ~HepC Num1 0.28 S/CO (0.00-0.79); ~Hepatitis A Antibody IgM Nonreactive (Nonreactive); ~Hepatitis B Surface Antibody NONREACTIVE (Nonreactive); ~Hepatitis C Antibody Nonreactive (Nonreactive)
[2023-06-03 10:23] LABS: Rubella IgG Antibody 5.75 Index; Rubeola IgG (Measles) >300.00 AU/mL
== END 2023-06-02 14:11 | disposition home or self-care (01) ==
LOC: HO.HMGCX 14:10
PROVIDERS: PCP Nurse Practitioner Family; Visit Provider Nurse Practitioner Family
DX: M25.572 Pain in left ankle and joints of left foot (principal); Z00.00 Encounter for general adult medical examination without abnormal findings; Z28.39 Other underimmunization status
CPT/HCPCS: 36415; 73610; 80061; 81003; 84443; 85025; 86704; 86706; 86709; 86735; 86762; 86765; 86787; 86803; 87340

== ENCOUNTER 2023-06-09 09:21 | Outpatient (REF) | payer OTHER, SELFPAY ==
[2023-06-09 12:27] LABS: Estimated Average Glucose 126 mg/dL
[2023-06-09 12:59] LABS: Alanine Aminotransferase 30 U/L (0-31); Albumin Level 4.2 g/dL (3.5-5.0); Alkaline Phosphatase 70 U/L (39-117); Anion Gap 11 (12-20); Aspartate Amino Transferase 20 U/L (5-31); Bilirubin Total 0.9 mg/dL (0.0-1.0); Blood Urea Nitrogen 13 mg/dL (9-16); Calcium 9.2 mg/dL (8.4-10.2); Carbon Dioxide 24 mmol/L (22-29); Chloride 109 mmol/L (96-108); Estimated Glomerular Filt Rate > 60; Glucose Fasting 128 mg/dL (60-99); Potassium 3.9 mmol/L (3.3-5.1); Sodium 140 mmol/L (135-145); Total Protein 7.3 g/dL (6.5-8.0)
[2023-06-11 21:18] LABS: TS Negative Control Passed; TS Panel A 0; TS Panel B 0; TS Positive Control Passed; TSpotTB Negative (Negative)
== END 2023-06-09 09:22 | disposition home or self-care (01) ==
LOC: HO.HMGCLDS 09:21
PROVIDERS: PCP Nurse Practitioner Family; Visit Provider Nurse Practitioner Family
DX: Z00.00 Encounter for general adult medical examination without abnormal findings (principal); Z11.1 Encounter for screening for respiratory tuberculosis; R81 Glycosuria; Z28.39 Other underimmunization status
CPT/HCPCS: 36415; 80053; 83036; 86481

== ENCOUNTER 2023-08-07 10:44 | Outpatient (REF) | payer OTHER, SELFPAY ==
--- NOTE | ~2023-08-07 | MR_ITS ---
EXAMINATION: MR CERVICAL SPINE WITHOUT CONTRAST CLINICAL INFORMATION: Neck pain and left arm radiculopathy. COMPARISON: MRI dated 07/26/2022. TECHNIQUE: Multiplanar, multisequential imaging of the cervical spine was performed without contrast. FINDINGS: VERTEBRAL BODIES AND PARASPINAL SOFT TISSUES: There is a rightward curvature of the cervical spine and a reversal of the normal cervical lordosis, as seen on prior imaging. The marrow is homogeneous in signal. There are no compression fractures or new subluxations. No marrow or soft tissue edema is seen. The vertebral artery flow-voids are normally visualized. The paraspinal soft tissues are normal. The imaged lung apices are grossly clear. CERVICOMEDULLARY JUNCTION AND VISUALIZED POSTERIOR FOSSA: The craniovertebral junction and imaged portions of the brain parenchyma appear normal. No cord signal abnormality or syrinx is seen. SPINAL LEVELS: C2-C3: No disc pathology. No central canal stenosis or foraminal narrowing. C3-C4: Very small central disc protrusion. No central canal stenosis or foraminal narrowing. C4-C5: Mild anterior endplate spurring and small central disc protrusion. No central canal stenosis or foraminal encroachment. C5-C6: Small central disc protrusion. No central canal stenosis or foraminal narrowing. C6-C7: Minimal disc bulge without central canal stenosis or foraminal encroachment. C7-T1: No disc pathology. Patent central canal and foramina. MR/MR cervical spine wo con IMPRESSION: Stable mild cervical spondylosis with small disc protrusions at the C3-C4, C4-C5, and C5-C6 levels. No central canal stenosis or foraminal narrowing. Reversal of the normal cervical lordosis and rightward curvature of the cervical spine.
== END 2023-08-07 10:45 | disposition home or self-care (01) ==
LOC: HO.MRI 10:44
PROVIDERS: PCP Nurse Practitioner Family; Visit Provider Nurse Practitioner Family
DX: M50.90 Cervical disc disorder, unspecified, unspecified cervical region (principal); R93.7 Abnormal findings on diagnostic imaging of other parts of musculoskeletal system
CPT/HCPCS: 72141

== ENCOUNTER 2023-08-18 08:24 | Outpatient (AMB) | payer OTHER, SELFPAY ==
--- NOTE | 2023-08-18 08:25 | A.OFFPC_ITS ---
Vital Signs 08/18/23 08:30 Height 5 ft 5 in Weight 273 lb BMI 45.4 BP 124/84 Blood Pressure Location Rt brachial Position Sitting Pulse 100 Pulse Source Pulse Oximeter Pulse Oximetry (%) 97 Oxygen Delivery Method Room Air Intake Visit Reasons: 6 MON FUP/NEEDS PHQ9-THRIVE Allergies Environmental Allergy (Mild, Uncoded 08/18/23 08:30) Unknown Medication List - Last Reconciled 08/18/23 by CLINT Vargas Alcohol Pads (alcohol swabs) 1 topically BID TESTING; NS aspirin (Adult Aspirin Regimen) 81 mg PO DAILY FreeStyle Lancets (lancets) BID testing NS FreeStyle Lite Meter (blood-glucose meter) BID testing NS FreeStyle Lite Strips (blood sugar diagnostic) BID testing NS Tobacco use date assessed: 06/02/23 Dental Screening Dental Screen Date: 08/18/23 Did you have a dental visit in the last 12 months?: No Did you have a dental problem in the last 6 months where you did not have access to dental care?: No Was dental information given to patient?: No HPI 6 MON FUP/NEEDS PHQ9-THRIVE HPI Details Pt's last fasting blood sugar was elevated. She reports that she ate before her labs and had been drinking alcohol the night before. Will repeat labs. Denies polyuria, polydipsia, and neuropathy. [facility] Medical History Pulmonary embolism SVT (supraventricular tachycardia) Surgical History Hx of prior ablation treatment Family History Father HTN (hypertension) CVD (cardiovascular disease) Diabetes mellitus Mother No problems noted. Sister No problems noted. Maternal Grandfather History of blood clots Social History Housing: House Alcohol intake: current Alcohol intake frequency: does not drink Patient Tobacco Use Status: Never used Tobacco e-Cigarette/Vaping Use: Never Used Second Hand Smoke Exposure: Yes service: No Current occupational status: employed Cognitive needs: No Hearing needs: No Vision needs: Yes Questionnaire PHQ-9 Over the last 2 weeks, how often have you been bothered by any of the following problems? 1. Little interest or pleasure in doing things: not at all 2. Feeling down, depressed, or hopeless: not at all 3. Trouble falling or staying asleep, or sleeping too much: not at all 4. Feeling tired or having little energy: not at all 5. Poor appetite or overeating: not at all 6. Feeling bad about yourself - or that you are a failure or have let yourself or your family down: not at all 7. Trouble concentrating on things, such as reading the newspaper or watching television: not at all 8. Moving or speaking so slowly that other people could have noticed. Or the opposite - being so fidgety or restless that you have been moving around a lot more than usual: not at all 9. Thoughts that you would be better off or of hurting yourself in some way: not at all Total score: 0 Depression Screening Interpretation: Negative Depression Screening Done: Yes 32903 - PHQ-9 Billing: Yes Source: Developed by Drs. Neil Roy, Lydia Khan, Vinnie Mendoza and colleagues, with an educational ketty from [employer] [facility]. Thrive Questionnaire Date Thrive assessed: 08/18/23 I am a: Patient What is your living situation today?: I have a steady place to live Within the past 12 months, did the food you bought not last and you didn't have the money to get more?: Never true Within the past 12 months, did you worry whether your food would run out before you got money to buy more?: Never true Do you have trouble paying for medicines?: No Do you have trouble getting transportation to medical appointments?: No Do you have trouble paying your heating and electricity bill?: No Do you have trouble taking care of your child, family member or friend?: No Do you have trouble with day-to-day activities such as bathing, preparing meals, shopping, managing finances, etc.?: No Are you currently unemployed and looking for a job?: No Are you interested in more education?: No WARREN-7 AMB Questionnaire WARREN-7 Date WARREN - 7 assessed: 08/18/23 Feeling nervous, anxious, or on edge: 0 = Not at all Not being able to stop or control worryin = Not at all Worrying too much about different things: 0 = Not at all Trouble relaxin = Not at all Being so restless that it is hard to sit still: 0 = Not at all Becoming easily annoyed or irritable: 0 = Not at all Feeling afraid as if something awful might happen: 0 = Not at all Total WARREN-7 score (0-4 normal; 5-9 mild; 10-14 moderate; 15-21 severe): 0 Source: Developed by Drs. Neil Roy, Lydia Khan, Vinnie Mendoza and colleagues, with an educational ketty from [employer] [facility]. WARREN-7 Assessment Billing WARREN-7 Assessment Tool: WARREN-7 Assessment 83077 Review of Systems Const Reports as per HPI Physical exam (Primary Care) Vital Signs: Last Vital Signs Pulse 100 08/18/23 08:30 BP 124/84 08/18/23 08:30 Pulse Ox 97 08/18/23 08:30 Oxygen Delivery Method Room Air 08/18/23 08:30 BMI result Body Mass Index 45.4 Tobacco/Smoking Status: Tobacco use Status Tobacco use date assessed 06/02/23 08/18/23 08:27 Patient Tobacco Use Status Never used Tobacco 08/18/23 08:27 e-Cigarette/Vaping Use Never Used 08/18/23 08:27 PHQ-9: PHQ-9 Score PHQ-9: Total score 0 08/18/23 08:54 Depression Screening Interpretation: Negative Thrive Assessment: Date of Thrive Assessment Date Thrive assessed 08/18/23 08/18/23 08:54 Const General: cooperative Nutritional Appearance: obese morbidly obese Orientation/consciousness: patient oriented x3 Resp Effort & Inspection: normal respiratory effort Auscultation: clear to auscultation bilaterally Cardio Rate: regular rate Rhythm: regular rhythm Heart sounds: S1 normal heart sound present and S2 normal heart sound present Neuro General: patient oriented x3 Psych Appearance: grossly normal Mental Status: mental status grossly normal Speech and movement: Normal speech and movement present Affect: normal affect Attitude: cooperative Thought process: Normal thought process present Thought content: Normal thought content present Insight: Good insight present (Psych) Judgement: Good judgement present (Psych) Assessment and Plan Assessment & Plan (1) Elevated fasting blood sugar: Code(s): R73.01 - Impaired fasting glucose Plan: repeat labs Plan The patient agreed to the use of a medical research tech for this encounter. Scribed for CLINT Guerrier by Jessica Hamilton medical research tech, on 08/18/2023 at 08:40 EST Orders: Orders Comprehensive [place]. Panel Fast Today R73.01 - Impaired fasting glucose Hemoglobin A1c Today R73.01 - Impaired fasting glucose Lipid Panel Today R73.01 - Impaired fasting glucose Coding Level of Care Code Est Pt Level 3 (21373) Diagnoses Elevated fasting blood sugar R73.01 Additional Codes WARREN-7 Assessment Billing - WARREN-7 Assessment Tool: WARREN-7 Assessment [id number] ([id number])
[2023-08-18 08:30] VITALS: BP 124/84; PULSE 100; O2SAT 97; BMI 45.4
== END 2023-08-18 09:03 | disposition home or self-care (01) ==
PROVIDERS: Visit Provider Nurse Practitioner Family
DX: R73.01 Impaired fasting glucose (principal)
CPT/HCPCS: 99213

== ENCOUNTER 2023-10-02 11:00 | Outpatient (AMB) | payer OTHER, SELFPAY ==
[2023-10-02 11:09] VITALS: BP 134/80; PULSE 91; TEMP 36.2; O2SAT 97; BMI 45.8
--- NOTE | 2023-10-02 11:09 | MHC.OFFWIV ---
Intake Vital Signs 10/02/23 11:09 Height 5 ft 5 in Weight 275 lb 6 oz BMI 45.8 BP 134/80 Blood Pressure Location Rt brachial Position Sitting Pulse 91 Pulse Source Pulse Oximeter Temp 97.2 F Temp Source Temporal Artery Scan Pulse Oximetry (%) 97 Oxygen Delivery Method Room Air Intake Visit Reasons: EST/neck pain (lobby) Intake Note: Pt is here c/o on going neck pain for months but has gotten worse in these last few weeks. Patient Tobacco Use Status: Never used Tobacco Allergies Environmental Allergy (Mild, Uncoded 10/02/23 11:10) Unknown Do you need a note to return to daycare/school/sports/work: Yes HPI HPI Comments History of Present Illness Details This is a 28-year-old female with past medical history of vertebral artery dissection currently maintained on ASA that she takes intermittently presenting for evaluation of left sided neck pain that she has had for the past 3 months. Patient states she has previously been treated with muscle relaxants and had physical therapy before for similar pain. She denies any injury or trauma preceding the onset of her pain 3 months ago. Patient is taking ?muscle spasm pills? with only minimal relief of her discomfort and she describes a tingling sensation in the digits of her left hand. Additionally, patient is complaining about chills without fever and generalized body aches that she has had for the past four days. 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 Patient is requesting testing for COVID-19. [facility] Medical History Pulmonary embolism SVT (supraventricular tachycardia) Surgical History Hx of prior ablation treatment Family History Father HTN (hypertension) CVD (cardiovascular disease) Diabetes mellitus Mother No problems noted. Sister No problems noted. Maternal Grandfather History of blood clots Social History Housing: House Alcohol intake: current Alcohol intake frequency: does not drink Patient Tobacco Use Status: Never used Tobacco e-Cigarette/Vaping Use: Never Used Second Hand Smoke Exposure: Yes service: No Current occupational status: employed Cognitive needs: No Hearing needs: No Vision needs: Yes Review of Systems Const Other (myalgias) Reports chills, Reports fatigue, Denies fever(s) and Reports lethargy Musc Details: left sided neck pain with tingling in left fingers. Skin/Breast Reports system reviewed and no additional complaints, except as documented Endo Reports fatigue Physical Exam Vital Signs: Last Vital Signs Temp 97.2 F 10/02/23 11:09 Pulse 91 10/02/23 11:09 BP 134/80 10/02/23 11:09 Pulse Ox 97 10/02/23 11:09 Oxygen Delivery Method Room Air 10/02/23 11:09 BMI result Body Mass Index 45.8 Const General: cooperative, healthy appearing, comfortable and no acute distress Nutritional Appearance: well nourished Orientation/consciousness: patient oriented x3 Limitations: no limitations HEENT Head: Yes normal to inspection and Yes normocephalic Ears: hearing grossly normal bilaterally, external ears normal, TM's normal bilaterally and EAC's normal General nose exam: Normal external nose present Face and sinus: Yes normal facial exam and No sinus tenderness Mouth: Normal oral and palatal mucosa present and moist mucous membranes Teeth and gingiva: dentition normal Throat: Yes posterior oropharynx normal (There is no edema, erythema or exudate to the posterior oropharynx) and No postnasal drainage Eyes Eyelids: Yes eyelids normal Conjunctivae: conjunctivae normal Sclerae: sclerae normal Corneas: corneas normal Pupils: Equal, round and reactive pupils present EOM: EOMs intact bilaterally Neck Neck: Yes normal visual inspection, Yes full ROM and Yes no meningeal signs Resp Effort & Inspection: normal respiratory effort and able to speak in complete sentences Auscultation: clear to auscultation bilaterally Cardio Palpation: other Rate: regular rate Rhythm: regular rhythm Heart sounds: Other heart sounds present (no carotid bruit bilaterally) Back/Spine/Pelvis Cervical Spine: cervical ROM normal and cervical muscular tenderness (left radiating to left SCM) Skin General skin exam: no rashes or lesions noted Neuro General: patient oriented x3 and no meningeal signs Cranial nerves: Yes Equal, round and reactive pupils present Extrem Left upper extremity: normal to inspection, full ROM and hand (Sensation intact throughout all digits of the left hand) Details: normal to inspection, normal capillary refill, neuromotor exam normal and neurosensory exam normal; no tenderness Psych Appearance: grossly normal Mental Status: mental status grossly normal Insight: Good insight present (Psych) Judgement: Good judgement present (Psych) Assessment & Plan Assessment & Plan (1) Generalized body aches: Comment: SARS panel ordered and pending. Code(s): R52 - Pain, unspecified Plan: SARS panel ordered and pending. (2) Neck pain: Code(s): M54.2 - Cervicalgia Plan: Naprosyn 500mg q12 hours (pt no longer taking ibuprofen daily) x 10 days; patient will follow-up with PCP within 14 days if her symptoms have not improved. Orders: Orders SARS-CoV2/FLU/RSV Today M54.2 - Cervicalgia, R52 - Pain, unspecified Medications: New naproxen (Naprosyn) 500 mg PO BID 20 tabs 0RF Coding Level of Care Code Est Pt Level 3 (18397) Diagnoses Generalized body aches R52 Neck pain M54.2 Time Spent (min) 25
== END 2023-10-02 11:49 | disposition home or self-care (01) ==
PROVIDERS: PCP Nurse Practitioner Family; Visit Provider Physician Assistant
DX: M54.2 Cervicalgia (principal)
CPT/HCPCS: 99213

== ENCOUNTER 2023-10-02 13:29 | Outpatient (REF) | payer OTHER, SELFPAY ==
[2023-10-02 14:18] LABS: Influenza A PCR NEGATIVE (Negative); Influenza B PCR NEGATIVE (Negative); Resp Syncy Virus RNA Qual PCR NEGATIVE (Negative); SARS COV2 PCR INHOUSE NEGATIVE (Negative)
== END 2023-10-02 13:30 | disposition home or self-care (01) ==
LOC: HO.HMGCLNP 13:29
PROVIDERS: Visit Provider Physician Assistant
DX: Z11.52 Encounter for screening for COVID-19 (principal); Z20.822 Contact with and (suspected) exposure to COVID-19; M54.2 Cervicalgia
CPT/HCPCS: 0241U

== ENCOUNTER 2023-10-16 06:58 | Outpatient (AMB) | payer OTHER, SELFPAY ==
--- NOTE | 2023-10-16 07:15 | A.OFFPC_ITS ---
Intake Visit Reasons: FU from walk-in neck pain ([phone]) Allergies Environmental Allergy (Mild, Uncoded 10/02/23 11:10) Unknown Medication List - Last Reconciled 10/16/23 by CLINT Vargas Alcohol Pads (alcohol swabs) 1 topically BID TESTING; NS aspirin (Adult Aspirin Regimen) 81 mg PO DAILY azithromycin For 250 mg dose pack: take 500 mg today (day 1), then 250 mg for 4 days (days 2-5) PO FreeStyle Lancets (lancets) BID testing NS FreeStyle Lite Meter (blood-glucose meter) BID testing NS FreeStyle Lite Strips (blood sugar diagnostic) BID testing NS ibuprofen 800 mg PO BID PRN 30 days naproxen (Naprosyn) 500 mg PO BID prednisone 50 mg PO DAILY 6 days tizanidine 4 mg PO BEDTIME PRN Tobacco use date assessed: 06/02/23 HPI FU from walk-in neck pain ([phone]) HPI Details Pt c/o cough and congestion. She reports waking up this morning with s ymptoms. Pt believes she has RSV due to multiple people around her being positive. Will send zpak and prednisone. Denies chest pain, shortness of breath, and dizziness. [facility] Medical History Pulmonary embolism SVT (supraventricular tachycardia) Surgical History Hx of prior ablation treatment Family History Father HTN (hypertension) CVD (cardiovascular disease) Diabetes mellitus Mother No problems noted. Sister No problems noted. Maternal Grandfather History of blood clots Social History Housing: House Alcohol intake: current Alcohol intake frequency: does not drink Patient Tobacco Use Status: Never used Tobacco e-Cigarette/Vaping Use: Never Used Second Hand Smoke Exposure: Yes service: No Current occupational status: employed Cognitive needs: No Hearing needs: No Vision needs: Yes Questionnaire Thrive Questionnaire Date Thrive assessed: 08/18/23 WARREN-7 AMB Questionnaire WARREN-7 Date WARREN - 7 assessed: 08/18/23 Source: Developed by Drs. Neil Roy, Lydia Khan, Vinnie Mendoza and colleagues, with an educational ketty from [employer]. Review of Systems Const Reports as per HPI Physical exam (Primary Care) Tobacco/Smoking Status: Tobacco use Status Tobacco use date assessed 06/02/23 10/16/23 07:17 Patient Tobacco Use Status Never used Tobacco 10/16/23 07:17 e-Cigarette/Vaping Use Never Used 10/16/23 07:17 Thrive Assessment: Date of Thrive Assessment Date Thrive assessed 08/18/23 10/16/23 07:17 Const General: cooperative Orientation/consciousness: patient oriented x3 Neuro General: patient oriented x3 Psych Appearance: grossly normal Mental Status: mental status grossly normal Speech and movement: Clear speech present Affect: normal affect Attitude: cooperative Thought process: Normal thought process present Thought content: Normal thought content present Insight: Good insight present (Psych) Judgement: Good judgement present (Psych) Telehealth Telehealth Location of provider rendering services: practice address Location of patient: address on file Patient Identification confirmed using: Name, : Yes Telehealth method: video Patient verbally consented to treatment: Yes Patient verbally consented to billing insurance company: Yes Patient informed of any privacy concerns related to visit: Yes Minutes spent on Phone/Video with Pt.: 10 Assessment and Plan Assessment & Plan (1) Illness: Code(s): R69 - Illness, unspecified Plan The patient agreed to the use of a emergency medical technician/driver for this encounter. Scribed for CLINT Guerrier by kathia Devine, on 10/16/2023 at 07:15 EST. Medications: New azithromycin For 250 mg dose pack: take 500 mg today (day 1), then 250 mg for 4 days (days 2-5) PO 6 tabs 0RF prednisone 50 mg PO DAILY 6 tabs 0RF 6 days Coding Level of Care Code Tele Est Pt Level 3 (16812) Diagnoses Illness R69
== END 2023-10-16 07:34 | disposition home or self-care (01) ==
LOC: HO.HMGC 06:58
PROVIDERS: PCP Nurse Practitioner Family; Visit Provider Nurse Practitioner Family
DX: R69 Illness, unspecified (principal)
CPT/HCPCS: 99213

== ENCOUNTER 2024-01-14 10:41 | Outpatient (AMB) | payer OTHER, SELFPAY ==
[2024-01-14 11:05] VITALS: BP 120/80; PULSE 92; TEMP 36.8; O2SAT 98; BMI 45.1
--- NOTE | 2024-01-14 11:05 | MHC.OFFWIV ---
Intake Vital Signs 01/14/24 11:05 Height 5 ft 5 in Weight 271 lb BMI 45.1 BP 120/80 Blood Pressure Location Lt brachial Position Sitting Pulse 92 Pulse Source Pulse Oximeter Temp 98.2 F Temp Source Temporal Artery Scan Pulse Oximetry (%) 98 Oxygen Delivery Method Room Air Intake Visit Reasons: EP Head Pressure Intake Note: pt is here today for head pressure started yesteday Patient Tobacco Use Status: Never used Tobacco Allergies Environmental Allergy (Mild, Uncoded 10/02/23 11:10) Unknown HPI HPI Comments History of Present Illness Details 28 y/o female patient who presents to walk in clinic with c/o left sided neck pain radiating down to her Left arm and hand. Reports tingling to her fingers. This is a chronic on going issue. She has tried multiple different treatment modalities with no relief. [facility] Medical History Pulmonary embolism SVT (supraventricular tachycardia) Surgical History Hx of prior ablation treatment Family History Father HTN (hypertension) CVD (cardiovascular disease) Diabetes mellitus Mother No problems noted. Sister No problems noted. Maternal Grandfather History of blood clots Social History Housing: House Alcohol intake: current Alcohol intake frequency: does not drink Patient Tobacco Use Status: Never used Tobacco e-Cigarette/Vaping Use: Never Used Second Hand Smoke Exposure: Yes service: No Current occupational status: employed Cognitive needs: No Hearing needs: No Vision needs: Yes Review of Systems Const All systems reviewed & are unremarkable except as noted in HPI and below Physical Exam Vital Signs: Last Vital Signs Temp 98.2 F 01/14/24 11:05 Pulse 92 01/14/24 11:05 BP 120/80 01/14/24 11:05 Pulse Ox 98 01/14/24 11:05 Oxygen Delivery Method Room Air 01/14/24 11:05 BMI result Body Mass Index 45.1 Const General: comfortable and no acute distress Nutritional Appearance: obese Orientation/consciousness: patient oriented x3 Neck Neck: Yes normal visual inspection, Yes full ROM, Yes no lymphadenopathy and Yes tender (Mild tenderness left sided neck) Neuro General: patient oriented x3 and moves all extremities Psych Speech and movement: Normal speech and movement present Assessment & Plan Assessment & Plan (1) Cervical neck pain with evidence of disc disease: Code(s): M50.90 - Cervical disc disorder, unspecified, unspecified cervical region Plan: - F/U with PCP for plan of Tx - Acetaminophen for pain relief - Ref to PT placed today. - Advised ED if pain severe and not improving. Orders: Orders PT Evaluation and Treatment Today M50.90 - Cervical disc disorder, unspecified, unspecified cervical region Coding Level of Care Code Est Pt Level 3 (79075) Diagnoses Cervical neck pain with evidence of disc disease M50.90 Time Spent (min) 15
== END 2024-01-14 13:33 | disposition home or self-care (01) ==
PROVIDERS: PCP Nurse Practitioner Family; Visit Provider Nurse Practitioner Family
DX: M50.90 Cervical disc disorder, unspecified, unspecified cervical region (principal)
CPT/HCPCS: 99213

== ENCOUNTER 2024-02-24 10:53 | Outpatient (AMB) | payer OTHER, SELFPAY ==
--- NOTE | 2024-02-24 11:13 | A.OFFPC_ITS ---
Vital Signs 02/24/24 11:14 Height 5 ft 5 in Weight 276 lb BMI 45.9 BP 120/82 Blood Pressure Location Rt brachial Position Sitting Pulse 101 H Pulse Source Pulse Oximeter Pulse Oximetry (%) 98 Oxygen Delivery Method Room Air Intake Visit Reasons: Annual PE Intake Note: Patient here for physical exam. pt would like to talk about weight, she states she has been making lifestyle changes and still does not see a difference in weight. Pap: has upcoming appt in February Allergies Environmental Allergy (Mild, Uncoded 02/24/24 11:16) Unknown Medication List - Last Reconciled 02/24/24 by CLINT Vargas No Known Home Meds Tobacco use date assessed: 02/24/24 Dental Screening Dental Screen Date: 02/24/24 Did you have a dental visit in the last 12 months?: Yes Did you have a dental problem in the last 6 months where you did not have access to dental care?: No Was dental information given to patient?: Patient has dentist HPI Annual PE HPI Details Pt is here for a PE. Will order labs. 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 [facility] Medical History Pulmonary embolism SVT (supraventricular tachycardia) Surgical History Hx of prior ablation treatment Family History Father HTN (hypertension) CVD (cardiovascular disease) Diabetes mellitus Mother No problems noted. Sister No problems noted. Maternal Grandfather History of blood clots Social History Housing: House Alcohol intake: current Alcohol intake frequency: does not drink Patient Tobacco Use Status: Never used Tobacco e-Cigarette/Vaping Use: Never Used Second Hand Smoke Exposure: Yes service: No Current occupational status: employed Cognitive needs: No Hearing needs: No Vision needs: Yes Questionnaire PHQ-9 Over the last 2 weeks, how often have you been bothered by any of the following problems? 1. Little interest or pleasure in doing things: not at all 2. Feeling down, depressed, or hopeless: several days 3. Trouble falling or staying asleep, or sleeping too much: several days 4. Feeling tired or having little energy: several days 5. Poor appetite or overeating: nearly every day 6. Feeling bad about yourself - or that you are a failure or have let yourself or your family down: not at all 7. Trouble concentrating on things, such as reading the newspaper or watching television: not at all 8. Moving or speaking so slowly that other people could have noticed. Or the opposite - being so fidgety or restless that you have been moving around a lot more than usual: not at all 9. Thoughts that you would be better off or of hurting yourself in some way: not at all Total score: 6 Depression Screening Interpretation: Negative Depression Screening Done: Yes 23397 - PHQ-9 Billing: Yes Source: Developed by Drs. Neil Roy, Lydia Khan, Vinnie Mendoza and colleagues, with an educational ketty from [employer] Thrive Questionnaire Date Thrive assessed: 02/24/24 I am a: Patient What is your living situation today?: I have a steady place to live Within the past 12 months, did the food you bought not last and you didn't have the money to get more?: Sometimes True Within the past 12 months, did you worry whether your food would run out before you got money to buy more?: Sometimes True Do you have trouble paying for medicines?: No Do you have trouble getting transportation to medical appointments?: No Do you have trouble paying your heating and electricity bill?: No Do you have trouble taking care of your child, family member or friend?: No Do you have trouble with day-to-day activities such as bathing, preparing meals, shopping, managing finances, etc.?: No Are you currently unemployed and looking for a job?: No Are you interested in more education?: No Currently or been in a relationship where the following occur: I choose not to answer this question THRIVE Score: 2 AUDIT C Alcohol Use Questionnaire (AUDIT-C) 1. How often do you have a drink containing alcohol?: Never 3. How often do you have six or more drinks on one occasion?: Never Total Score: 0 Score Reviewed/Action Taken: No WARREN-7 AMB Questionnaire WARREN-7 Date WARREN - 7 assessed: 02/24/24 Feeling nervous, anxious, or on edge: 0 = Not at all Not being able to stop or control worryin = Not at all Worrying too much about different things: 0 = Not at all Trouble relaxin = Several days Being so restless that it is hard to sit still: 0 = Not at all Becoming easily annoyed or irritable: 0 = Not at all Feeling afraid as if something awful might happen: 0 = Not at all Total WARREN-7 score (0-4 normal; 5-9 mild; 10-14 moderate; 15-21 severe): 1 Source: Developed by Drs. Neil Roy, Lydia Khan, Vinnie Mendoza and colleagues, with an educational ketty from [employer] WARREN-7 Assessment Billing WARREN-7 Assessment Tool: WARREN-7 Assessment 25957 Review of Systems Const Denies chills and Denies fever(s) Eyes Denies blurry vision ENT Denies vertigo, Denies dizziness and Denies sore throat Card Denies chest pain at rest, Denies chest pain with activity, Denies diaphoresis, Denies dyspnea and Denies dyspnea on exertion Resp Denies cough, Denies dyspnea, Denies dyspnea on exertion and Denies wheezing GI Denies abdominal pain, Denies melena, Denies hematochezia, Denies constipation, Denies diarrhea and Denies loose stools Denies hematuria Musc Denies numbness and Denies tingling Skin/Breast Denies lesions Neuro Denies vertigo, Denies dizziness, Denies numbness and Denies tingling Psych Denies anxiety, Denies depression, Denies homicidal ideation, Denies suicidal ideation and Denies other (substance abuse) Aller/Immun Denies wheezing Physical exam (Primary Care) Vital Signs: Last Vital Signs Pulse 101 H 02/24/24 11:14 BP 120/82 02/24/24 11:14 Pulse Ox 98 02/24/24 11:14 Oxygen Delivery Method Room Air 02/24/24 11:14 BMI result Body Mass Index 45.9 Tobacco/Smoking Status: Tobacco use Status Tobacco use date assessed 02/24/24 02/24/24 11:20 Patient Tobacco Use Status Never used Tobacco 02/24/24 11:14 e-Cigarette/Vaping Use Never Used 02/24/24 11:14 PHQ-9: PHQ-9 Score PHQ-9: Total score 6 02/24/24 11:30 Depression Screening Interpretation: Negative Thrive Assessment: Date of Thrive Assessment Date Thrive assessed 02/24/24 02/24/24 11:28 Currently or been in a relationship where the following occur: I choose not to answer this question Const General: cooperative Nutritional Appearance: obese morbidly obese Orientation/consciousness: patient oriented x3 HENMT Head: Yes normal to inspection, Yes normocephalic and Yes atraumatic Ears: TM's normal bilaterally Eyes General: appearance normal, both eyes and all related structures Alignment and Position: alignment normal and position normal Neck Neck: Yes normal visual inspection and Yes no lymphadenopathy Thyroid: Thyroid normal Resp Effort & Inspection: normal respiratory effort Auscultation: clear to auscultation bilaterally Cardio Rate: regular rate Rhythm: regular rhythm Heart sounds: S1 normal heart sound present, S2 normal heart sound present and no murmurs GI Palpation (GI): Soft to palpation and nontender Auscultation: normal bowel sounds Skin Rashes: no rashes Neuro General: patient oriented x3, moves all extremities, no focal motor deficits and deep tendon reflexes 2+ bilaterally Romberg Test: Negative Psych Appearance: grossly normal Mental Status: mental status grossly normal Speech and movement: Normal speech and movement present Affect: normal affect Attitude: cooperative Thought process: Normal thought process present Thought content: Normal thought content present Insight: Good insight present (Psych) Judgement: Good judgement present (Psych) Assessment and Plan Assessment & Plan (1) Physical exam: Code(s): Z.00 - Encounter for general adult medical examination without abnormal findings Plan The patient agreed to the use of a medical claims representative for this encounter. Scribed for CLINT Guerrier by Jessica Hamilton medical claims representative, on 02/24/2024 at 11:30 EST. Orders: Orders UA CC w/rflx Micro + Cult Today Z00.00 - Encounter for general adult medical examination without abnormal findings Lipid Panel Today Z00.00 - Encounter for general adult medical examination without abnormal findings Complete Blood Count Auto Diff Today Z00.00 - Encounter for general adult medical examination without abnormal findings Comprehensive [place]. Panel Fast Today Z00.00 - Encounter for general adult medical examination without abnormal findings TSH reflex Free T4 Today Z00.00 - Encounter for general adult medical examination without abnormal findings Medications: New tizanidine 4 mg PO BEDTIME 90 days PRN 90 tabs 0RF muscle spasticity Coding Level of Care Code Est Pt Prev Care 18-39y(81211) Diagnoses Physical exam Z00.00 Additional Codes WARREN-7 Assessment Billing - WARREN-7 Assessment Tool: WARREN-7 Assessment [id number] ([id number])
[2024-02-24 11:14] VITALS: BP 120/82; PULSE 101; O2SAT 98; BMI 45.9
== END 2024-02-24 11:45 | disposition home or self-care (01) ==
PROVIDERS: PCP Nurse Practitioner Family; Visit Provider Nurse Practitioner Family
DX: Z00.00 Encounter for general adult medical examination without abnormal findings (principal)
CPT/HCPCS: 99395

== ENCOUNTER 2024-03-20 09:35 | Outpatient (AMB) | payer OTHER, SELFPAY ==
--- NOTE | 2024-03-20 11:10 | AM.OFFWIN_ITS ---
Intake Vital Signs 03/20/24 11:12 Height 5 ft 5 in Weight 263 lb BMI 43.8 BP 130/70 Blood Pressure Location Lt brachial Position Sitting Pulse 88 Pulse Source Pulse Oximeter Pulse Oximetry (%) 98 Oxygen Delivery Method Room Air Intake Visit Reasons: EP ?RT pink eye Intake Note: Patient is here with irritated right eye, swollen, burning since this morning. Patient Tobacco Use Status: Never used Tobacco Allergies Environmental Allergy (Mild, Uncoded 03/25/24 08:08) Unknown Do you need a note to return to daycare/school/sports/work: Yes HPI EP ?RT pink eye HPI Details Patient is a 29-year-old female who comes to the walk-in clinic complaining of burning sensation to the right eye and eyelid swelling upon wakening this morning. She reports that there was some mild discharge and crusting to the eyelashes area. She denies nasal congestion or other respiratory symptoms, trauma to the eyes, any symptoms to the left eye, fever or chills, headache or dizziness, nausea vomiting or diarrhea, malaise or myalgias, or other significant associated symptoms. [facility] Medical History Pulmonary embolism SVT (supraventricular tachycardia) Surgical History Hx of prior ablation treatment Family History Father HTN (hypertension) CVD (cardiovascular disease) Diabetes mellitus Mother No problems noted. Sister No problems noted. Maternal Grandfather History of blood clots Social History Housing: House Alcohol intake: current Alcohol intake frequency: does not drink Patient Tobacco Use Status: Never used Tobacco e-Cigarette/Vaping Use: Never Used Second Hand Smoke Exposure: Yes service: No Current occupational status: employed Cognitive needs: No Hearing needs: No Vision needs: Yes Review of Systems Const All systems reviewed & are unremarkable except as noted in HPI and below Physical Exam Vital Signs: Last Vital Signs Pulse 88 03/20/24 11:12 BP 130/70 03/20/24 11:12 Pulse Ox 98 03/20/24 11:12 Oxygen Delivery Method Room Air 03/20/24 11:12 BMI result Body Mass Index 43.8 Eyes Other: Injection and conjunctival edema to the right eye and upper and lower eyelids, scant discharge. Pupils equal round and reactive to light and accommodation and extraocular movement intact. Assessment & Plan Assessment & Plan (1) Conjunctivitis: Code(s): H10.9 - Unspecified conjunctivitis Qualifiers: Acute conjunctivitis type: viral Conjunctivitis type: acute Laterality: right Qualified Code(s): B30.9 - Viral conjunctivitis, unspecified Plan: Patient is a 29-year-old female with isolated acute right conjunctivitis, likely viral but will write for erythromycin ointment. She should follow up with PCP if symptoms persist or can return to the walk-in as needed. Medications: New erythromycin 0.5 inches ophthalmic (eye) TID 3.5 grams 0RF Coding Level of Care Code Est Pt Level 4 (79949) Diagnoses Acute viral conjunctivitis of right eye B30.9 Acute conjunctivitis type: viral Conjunctivitis type: acute Laterality: right
[2024-03-20 11:12] VITALS: BP 130/70; PULSE 88; O2SAT 98; BMI 43.8
== END 2024-03-20 12:17 | disposition home or self-care (01) ==
PROVIDERS: PCP Nurse Practitioner Family; Visit Provider Physician Assistant Medical
DX: B30.9 Viral conjunctivitis, unspecified (principal)
CPT/HCPCS: 99214

== ENCOUNTER 2024-03-23 08:14 | Outpatient (AMB) | payer OTHER, SELFPAY ==
[2024-03-23 08:38] VITALS: BP 142/100; PULSE 101; TEMP 36.3; O2SAT 99; BMI 43.9
--- NOTE | 2024-03-23 08:38 | AM.OFFWIN_ITS ---
Intake Vital Signs 03/23/24 08:38 Height 5 ft 5 in Weight 264 lb BMI 43.9 BP 142/100 H Blood Pressure Location Lt brachial Position Sitting Pulse 101 H Pulse Source Pulse Oximeter Temp 97.3 F Temp Source Temporal Artery Scan Pulse Oximetry (%) 99 Intake Visit Reasons: EST/eye irritation (lobby) Intake Note: pt is here today for eye irritation started friday Patient Tobacco Use Status: Never used Tobacco Allergies Environmental Allergy (Mild, Uncoded 03/23/24 09:04) Unknown Medication List - Last Reconciled 03/23/24 by Giles Quinteros MD azithromycin take 500 mg today (day 1), then 250 mg for 4 days (days 2-5) PO erythromycin 0.5 inches ophthalmic (eye) TID olopatadine 0.2% 1 drp ophthalmic (eye) BEDTIME tizanidine 4 mg PO BEDTIME PRN 90 days Do you need a note to return to daycare/school/sports/work: Yes HPI EST/eye irritation (lobby) HPI Details 29-year-old female presents to the [facility] for a sick visit. Patient was seen for irritation in the right eye. Symptoms started a few days ago. Was seen at the walk-in and started on erythromycin ophthalmic ointment on Friday. Symptoms have gotten worse. Now she has tearing and redness in both her eyes. Mucoid discharge from both eyes. Does not wear contact lenses. [facility] Medical History Pulmonary embolism SVT (supraventricular tachycardia) Surgical History Hx of prior ablation treatment Family History Father HTN (hypertension) CVD (cardiovascular disease) Diabetes mellitus Mother No problems noted. Sister No problems noted. Maternal Grandfather History of blood clots Social History Housing: House Alcohol intake: current Alcohol intake frequency: does not drink Patient Tobacco Use Status: Never used Tobacco e-Cigarette/Vaping Use: Never Used Second Hand Smoke Exposure: Yes service: No Current occupational status: employed Cognitive needs: No Hearing needs: No Vision needs: Yes Physical Exam Vital Signs: Last Vital Signs Temp 97.3 F 03/23/24 08:38 Pulse 101 H 03/23/24 08:38 BP 142/100 H 03/23/24 08:38 Pulse Ox 99 03/23/24 08:38 BMI result Body Mass Index 43.9 Eyes Other: Right and left eyes: Bulbar conjunctiva is congested and edematous. Corneas clear. Iris is clear. No digital tenderness. Upper eyelid margins are swollen. Neck Other: No cervical lymphadenopathy. Assessment & Plan Assessment & Plan (1) Conjunctivitis: Code(s): H10.9 - Unspecified conjunctivitis Plan: Clinically, allergy appears to be the inciting agent. Continue erythromycin. Oloptadine added to the regimen. Encouraged p.o. Claritin. Azithromycin called in. Patient has a follow-up appointment on Friday in my office in [place]. Medications: New olopatadine 0.2% 1 drp ophthalmic (eye) BEDTIME 2.5 mL 0RF azithromycin take 500 mg today (day 1), then 250 mg for 4 days (days 2-5) PO 6 tabs 0RF Coding Level of Care Code Est Pt Level 4 (60574) Diagnoses Conjunctivitis H10.9
== END 2024-03-23 10:15 | disposition home or self-care (01) ==
PROVIDERS: PCP Nurse Practitioner Family; Visit Provider Internal Medicine
DX: H10.9 Unspecified conjunctivitis (principal)
CPT/HCPCS: 99214

== ENCOUNTER 2024-03-25 07:55 | Outpatient (AMB) | payer OTHER, SELFPAY ==
--- NOTE | 2024-03-25 08:07 | A.OFFPC_ITS ---
Vital Signs 03/25/24 08:08 Height 5 ft 5 in Weight 268 lb BMI 44.6 BP 130/82 Blood Pressure Location Lt brachial Position Sitting Pulse 101 H Pulse Source Pulse Oximeter Pulse Oximetry (%) 98 Oxygen Delivery Method Room Air Intake Visit Reasons: Walk-in follow up Allergies Environmental Allergy (Mild, Uncoded 03/25/24 08:08) Unknown Medication List - Last Reconciled 03/25/24 by Giles Quinteros MD azithromycin take 500 mg today (day 1), then 250 mg for 4 days (days 2-5) PO erythromycin 0.5 inches ophthalmic (eye) TID olopatadine 0.2% 1 drp ophthalmic (eye) BEDTIME tizanidine 4 mg PO BEDTIME PRN 90 days Tobacco use date assessed: 02/24/24 Dental Screening Dental Screen Date: 02/24/24 HPI Walk-in follow up HPI Details 29-year-old female presents to the office for a sick visit. Patient was seen at the walk-in for allergic conjunctivitis. Initially she was provided erythromycin ointment and when her symptoms did not improve, Olaptadine, Claritin and antibiotics were suggested. Her insurance did not fill the eye prescription. Patient continues to have redness in both her eyes, with congestion symptoms in her head. No fevers or chills. [facility] Medical History Pulmonary embolism SVT (supraventricular tachycardia) Surgical History Hx of prior ablation treatment Family History Father HTN (hypertension) CVD (cardiovascular disease) Diabetes mellitus Mother No problems noted. Sister No problems noted. Maternal Grandfather History of blood clots Social History Housing: House Alcohol intake: current Alcohol intake frequency: does not drink Patient Tobacco Use Status: Never used Tobacco e-Cigarette/Vaping Use: Never Used Second Hand Smoke Exposure: Yes service: No Current occupational status: employed Cognitive needs: No Hearing needs: No Vision needs: Yes Questionnaire PHQ-9 Over the last 2 weeks, how often have you been bothered by any of the following problems? 1. Little interest or pleasure in doing things: not at all 2. Feeling down, depressed, or hopeless: several days 3. Trouble falling or staying asleep, or sleeping too much: several days 4. Feeling tired or having little energy: several days 5. Poor appetite or overeating: nearly every day 6. Feeling bad about yourself - or that you are a failure or have let yourself or your family down: not at all 7. Trouble concentrating on things, such as reading the newspaper or watching television: not at all 8. Moving or speaking so slowly that other people could have noticed. Or the opposite - being so fidgety or restless that you have been moving around a lot more than usual: not at all 9. Thoughts that you would be better off or of hurting yourself in some way: not at all Total score: 6 Depression Screening Interpretation: Negative Depression Screening Done: Yes 20436 - PHQ-9 Billing: Yes Source: Developed by Drs. Neil Roy, Vinnie Etienne and colleagues, with an educational ketty from [employer]. Thrive Questionnaire Date Thrive assessed: 02/24/24 AUDIT C Alcohol Use Questionnaire (AUDIT-C) 1. How often do you have a drink containing alcohol?: Never 3. How often do you have six or more drinks on one occasion?: Never Total Score: 0 Score Reviewed/Action Taken: No WARREN-7 AMB Questionnaire WARREN-7 Date WARREN - 7 assessed: 02/24/24 Source: Developed by Drs. Neil Roy, Vinnie Etienne and colleagues, with an educational ketty from [employer]. Physical exam (Primary Care) Vital Signs: Last Vital Signs Pulse 101 H 03/25/24 08:08 BP 130/82 03/25/24 08:08 Pulse Ox 98 03/25/24 08:08 Oxygen Delivery Method Room Air 03/25/24 08:08 BMI result Body Mass Index 44.6 Tobacco/Smoking Status: Tobacco use Status Tobacco use date assessed 02/24/24 03/25/24 08:14 Patient Tobacco Use Status Never used Tobacco 03/25/24 08:14 e-Cigarette/Vaping Use Never Used 03/25/24 08:14 PHQ-9: PHQ-9 Score PHQ-9: Total score 6 03/25/24 08:14 Depression Screening Interpretation: Negative Thrive Assessment: Date of Thrive Assessment Date Thrive assessed 02/24/24 03/25/24 08:14 [facility] Other: Right and left eye: Conjunctival congestion. Bulbar conjunctiva is congested and slightly edematous. Corneas clear. Anterior chambers clear. No digital tenderness. Neck: No lymph nodes palpable. Assessment and Plan Assessment & Plan (1) Conjunctivitis: Code(s): H10.9 - Unspecified conjunctivitis Plan: Discontinue the erythromycin ointment. Continue the bvpc-maz-exdxzma allergic drops twice a day. Continue Claritin. Continue the oral antibiotics. Prednisone added to the regimen. Follow-up here if symptoms do not improve. Coding Level of Care Code Est Pt Level 3 (10418) Diagnoses Conjunctivitis H10.9
[2024-03-25 08:08] VITALS: BP 130/82; PULSE 101; O2SAT 98; BMI 44.6
== END 2024-03-25 09:08 | disposition home or self-care (01) ==
PROVIDERS: PCP Nurse Practitioner Family; Visit Provider Internal Medicine
DX: H10.9 Unspecified conjunctivitis (principal)
CPT/HCPCS: 99213

== ENCOUNTER 2024-05-26 07:59 | Outpatient (AMB) | payer OTHER, SELFPAY ==
--- NOTE | 2024-05-26 08:01 | A.OFFPC_ITS ---
Vital Signs 05/26/24 08:05 Height 5 ft 5 in Weight 260 lb BMI 43.3 BP 120/82 Blood Pressure Location Rt brachial Position Sitting Pulse 82 Pulse Source Pulse Oximeter Pulse Oximetry (%) 98 Oxygen Delivery Method Room Air Intake Visit Reasons: 3-4 month follow up Intake Note: Patient here for work physical form and needs TB screening and follow up from Work injury Allergies Environmental Allergy (Mild, Uncoded 05/26/24 09:26) Unknown Medication List - Last Reconciled 05/26/24 by CLINT Vargas tizanidine 4 mg PO BEDTIME PRN 90 days Tobacco use date assessed: 02/24/24 Dental Screening Dental Screen Date: 02/24/24 HPI 3-4 month follow up HPI Details Pt is a newly diagnosed diabetic. Will order A1C and microalbumin. Denies polyuria, polydipsia, and neuropathy. Pt denies any signs and symptoms of hypoglycemia and does know how to correct it. Pt reports that her blood sugar has been stable. Pt will schedule her own eye exam. Pt is seeing a specialist in [place] for neck pain. She reports tightness to the left side of her neck moving into her trap and shoulder. She does have left carpal tunnel. Pt was noted to have a possible anemia, recommended CBC and iron studies (seen on MRI). Will order labs. Pt denies any excessive fatigue, blood in stool, dizziness. [facility] Medical History Pulmonary embolism SVT (supraventricular tachycardia) Surgical History Hx of prior ablation treatment Family History Father HTN (hypertension) CVD (cardiovascular disease) Diabetes mellitus Mother No problems noted. Sister No problems noted. Maternal Grandfather History of blood clots Social History Housing: House Alcohol intake: current Alcohol intake frequency: does not drink Patient Tobacco Use Status: Never used Tobacco e-Cigarette/Vaping Use: Never Used Second Hand Smoke Exposure: Yes service: No Current occupational status: employed Cognitive needs: No Hearing needs: No Vision needs: Yes Questionnaire PHQ-9 Over the last 2 weeks, how often have you been bothered by any of the following problems? 1. Little interest or pleasure in doing things: not at all 2. Feeling down, depressed, or hopeless: not at all 3. Trouble falling or staying asleep, or sleeping too much: more than half the days 4. Feeling tired or having little energy: more than half the days 5. Poor appetite or overeating: not at all 6. Feeling bad about yourself - or that you are a failure or have let yourself or your family down: not at all 7. Trouble concentrating on things, such as reading the newspaper or watching television: not at all 8. Moving or speaking so slowly that other people could have noticed. Or the opposite - being so fidgety or restless that you have been moving around a lot more than usual: not at all 9. Thoughts that you would be better off or of hurting yourself in some way: not at all Total score: 4 Depression Screening Interpretation: Negative Depression Screening Done: Yes 78885 - PHQ-9 Billing: Yes Source: Developed by Drs. Neil Roy, Lydia Khan, Vinnie Mendoza and colleagues, with an educational ketty from [employer]. Thrive Questionnaire Date Thrive assessed: 05/25/24 I am a: Patient What is your living situation today?: I have a steady place to live Within the past 12 months, did the food you bought not last and you didn't have the money to get more?: Often true Within the past 12 months, did you worry whether your food would run out before you got money to buy more?: Often true Do you have trouble paying for medicines?: No Do you have trouble getting transportation to medical appointments?: No Do you have trouble paying your heating and electricity bill?: No Do you have trouble taking care of your child, family member or friend?: No Do you have trouble with day-to-day activities such as bathing, preparing meals, shopping, managing finances, etc.?: No Are you currently unemployed and looking for a job?: No Are you interested in more education?: No Please select the resources that you would like help with: Housing/Penitentiary Currently or been in a relationship where the following occur: No concerns reported THRIVE Score: 2 AUDIT C Alcohol Use Questionnaire (AUDIT-C) 1. How often do you have a drink containing alcohol?: Never 2. How many drinks containing alcohol do you have on a typical day when you are drinking?: 1 or 2 3. How often do you have six or more drinks on one occasion?: Never Total Score: 0 WARREN-7 AMB Questionnaire WARREN-7 Date WARREN - 7 assessed: 05/26/24 Feeling nervous, anxious, or on edge: 0 = Not at all Not being able to stop or control worryin = Not at all Worrying too much about different things: 0 = Not at all Trouble relaxin = Several days Being so restless that it is hard to sit still: 0 = Not at all Becoming easily annoyed or irritable: 0 = Not at all Feeling afraid as if something awful might happen: 0 = Not at all Total WARREN-7 score (0-4 normal; 5-9 mild; 10-14 moderate; 15-21 severe): 1 Source: Developed by Drs. Neil Roy, Lydia Khan, Vinnie Mendoza and colleagues, with an educational ketty from [employer]. WARREN-7 Assessment Billing WARREN-7 Assessment Tool: WARREN-7 Assessment 36888 Review of Systems Const Reports as per HPI Physical exam (Primary Care) Vital Signs: Last Vital Signs Pulse 82 05/26/24 08:05 BP 120/82 05/26/24 08:05 Pulse Ox 98 05/26/24 08:05 Oxygen Delivery Method Room Air 05/26/24 08:05 BMI result Body Mass Index 43.3 Tobacco/Smoking Status: Tobacco use Status Tobacco use date assessed 02/24/24 05/26/24 08:03 Patient Tobacco Use Status Never used Tobacco 05/26/24 08:03 e-Cigarette/Vaping Use Never Used 05/26/24 08:03 PHQ-9: PHQ-9 Score PHQ-9: Total score 4 05/26/24 08:19 Depression Screening Interpretation: Negative Thrive Assessment: Date of Thrive Assessment Date Thrive assessed 05/25/24 05/26/24 08:03 Currently or been in a relationship where the following occur: No concerns reported Const General: cooperative Nutritional Appearance: obese morbidly obese Orientation/consciousness: patient oriented x3 Resp Effort & Inspection: normal respiratory effort Auscultation: clear to auscultation bilaterally Cardio Rate: regular rate Rhythm: regular rhythm Heart sounds: S1 normal heart sound present and S2 normal heart sound present Neuro General: patient oriented x3 Extrem Other: bilat feet: + sensation with use of monofilament, feet intact Psych Appearance: grossly normal Mental Status: mental status grossly normal Speech and movement: Normal speech and movement present Affect: normal affect Attitude: cooperative Thought process: Normal thought process present Thought content: Normal thought content present Insight: Good insight present (Psych) Judgement: Good judgement present (Psych) Assessment and Plan Assessment & Plan (1) Anemia: Code(s): D64.9 - Anemia, unspecified Plan: will check CBC, b12, iron studies (2) Newly diagnosed diabetes: Code(s): E11.9 - Type 2 diabetes mellitus without complications Plan: A1c ordered, microalbumin, (3) Cervical neck pain with evidence of disc disease: Code(s): M50.90 - Cervical disc disorder, unspecified, unspecified cervical region Plan The patient agreed to the use of a certified medical coder for this encounter. Scribed for MONTSE Guerrier-JASON by Jessica Hamilton certified medical coder, on 05/26/2024 at 08:15 EST. Orders: Orders Complete Blood Count Auto Diff Today D64.9 - Anemia, unspecified Comprehensive Met. Panel Today D64.9 - Anemia, unspecified IRON PROFILE Today D64.9 - Anemia, unspecified Vitamin B12 and Folate Today D64.9 - Anemia, unspecified Lipid Panel Today E11.9 - Type 2 diabetes mellitus without complications TSH reflex Free T4 Today E11.9 - Type 2 diabetes mellitus without complications Hemoglobin A1c Today E11.9 - Type 2 diabetes mellitus without complications Ferritin Today D64.9 - Anemia, unspecified UA CC w/rflx Micro + Cult Today E11.9 - Type 2 diabetes mellitus without complications Microalbumin, Random (w Creat) Today E11.9 - Type 2 diabetes mellitus without complications Coding Level of Care Code Est Pt Level 3 (35386) Diagnoses Anemia D64.9 Newly diagnosed diabetes E11.9 Cervical neck pain with evidence of disc disease M50.90 Additional Codes WARREN-7 Assessment Billing - WARREN-7 Assessment Tool: WARREN-7 Assessment [id number] ([id number])
[2024-05-26 08:05] VITALS: BP 120/82; PULSE 82; O2SAT 98; BMI 43.3
== END 2024-05-26 09:03 | disposition home or self-care (01) ==
PROVIDERS: PCP Nurse Practitioner Family; Visit Provider Nurse Practitioner Family
DX: D64.9 Anemia, unspecified (principal); E11.9 Type 2 diabetes mellitus without complications; M50.90 Cervical disc disorder, unspecified, unspecified cervical region
CPT/HCPCS: 99213

== ENCOUNTER 2024-05-26 08:38 | Outpatient (REF) | payer OTHER, SELFPAY ==
[2024-05-26 10:27] LABS: Appearance Urine Cloudy; Color Urine Yellow; Glucose Urine UA Negative (Negative); Leukocyte Esterase Urine Moderate (2+) (Negative); Nitrite Urine Negative (Negative); UMIC TRIGGER UACC YES; Urine Blood Negative (Negative); Urine Ketones Negative (Negative); Urine Protein Negative (Neg-Trace)
[2024-05-26 10:31] LABS: MANUAL DIFF FLAG NO
[2024-05-26 10:39] LABS: Basophils Absolute Auto 0.1 X10*3/uL (0.0-0.2); Basophils Percent Auto 1.2 % (0-2); Eosinophils Absolute Auto 0.1 X10*3/uL (0.0-0.4); Eosinophils Percent Auto 1.2 % (0-4); Hematocrit 40.1 % (37.0-47.0); Hemoglobin 13.7 g/dl (12.0-16.0); Imm Gran Abs Auto 0.01 X10*3/uL (0.00-0.03); Imm Gran Pct Auto 0.2 % (0.0-0.4); Mean Corpuscular HGB Conc 34.2 g/dl (31.0-35.0); Mean Corpuscular Hemoglobin 30.6 pg (27.0-33.0); Mean Corpuscular Volume 89.5 fL (80.0-98.0); Mean Platelet Volume 9.8 fL (9.4-12.3); Monocytes Absolute Auto 0.5 X10*3/uL (0.1-1.2); Monocytes Percent Auto 9.1 % (2-11); Neutrophils Absolute Auto 2.5 x10*3/uL (2.0-8.3); Neutrophils Percent Auto 49.3 % (45-73); Platelet Count 396 X10*3/uL (160-400); Red Blood Count 4.48 X10*6/uL (4.20-5.50); Red Cell Distribution Width 12.7 % (11.0-16.0); White Blood Count 5.2 X10*3/uL (4.8-10.8)
[2024-05-26 10:43] LABS: Bacteria Urine 2+ (None Seen); Hyaline Casts Urine 0-2 /LPF (0-2); RBC Urine 0-2 /HPF (0-2); UACC Culture Trigger YES
[2024-05-26 10:55] LABS: Alanine Aminotransferase 33 U/L (0-31); Albumin Level 4.2 g/dL (3.5-5.0); Alkaline Phosphatase 76 U/L (39-117); Anion Gap 10 (12-20); Aspartate Amino Transferase 22 U/L (5-31); Bilirubin Total 1.1 mg/dL (0.0-1.0); Blood Urea Nitrogen 12 mg/dL (9-16); Calcium 9.6 mg/dL (8.4-10.2); Carbon Dioxide 27 mmol/L (22-29); Chloride 104 mmol/L (96-108); Cholesterol 160 mg/dL (<200); Estimated Glomerular Filt Rate > 60; Glucose Fasting 124 mg/dL (60-99); Glucose Random 123 mg/dL (60-115); HDL Cholesterol 47 mg/dL (>40); Iron 85 mcg/dL (30-160); LDL Cholesterol Calculated 89 mg/dL (<100); Percent Iron Saturation 30 % (15-50); Potassium 4.1 mmol/L (3.3-5.1); Sodium 137 mmol/L (135-145); Total Iron Binding Capacity 288 mcg/dL (228-428); Total Protein 7.2 g/dL (6.5-8.0); Triglycerides 123 mg/dL (<150); Unsaturated Iron Binding 203 ug/dL
[2024-05-26 11:14] LABS: Ferritin 37 ng/mL (10-122); TSH reflex Free T4 0.92 uIU/mL (0.32-4.0)
[2024-05-26 11:18] LABS: Folate 12.1 ng/mL (> or = 4.0); Vitamin B12 374 pg/mL (200-900)
[2024-05-26 11:40] LABS: Estimated Average Glucose 128 mg/dL; Hemoglobin A1c % 6.1 % (<6.0)
[2024-05-26 11:42] LABS: Microalbum/Creatinine Ratio Ur 8.5 ug/mg cr (<30)
== END 2024-05-26 08:39 | disposition home or self-care (01) ==
LOC: HO.HMGCLDS 08:38
PROVIDERS: PCP Nurse Practitioner Family; Visit Provider Nurse Practitioner Family
DX: Z00.00 Encounter for general adult medical examination without abnormal findings (principal); D64.9 Anemia, unspecified; E11.9 Type 2 diabetes mellitus without complications
CPT/HCPCS: 36415; 80053; 80061; 81001; 82043; 82570; 82607; 82728; 82746; 83036; 83540; 84443; 85025; 87086

== ENCOUNTER 2024-06-11 08:10 | Outpatient (REF) | payer OTHER, SELFPAY ==
[2024-06-13 22:09] LABS: TS Negative Control Passed; TS Panel A 0; TS Panel B 4; TS Positive Control Passed; TSpotTB Negative (Negative)
== END 2024-06-11 08:11 | disposition home or self-care (01) ==
LOC: HO.LAB 08:10
PROVIDERS: PCP Nurse Practitioner Family; Visit Provider Nurse Practitioner Family
DX: Z11.1 Encounter for screening for respiratory tuberculosis (principal)
CPT/HCPCS: 36415; 86481

== ENCOUNTER 2024-07-08 07:34 | Outpatient (AMB) | payer OTHER, SELFPAY ==
--- NOTE | 2024-07-08 07:07 | A.OFFPC_ITS ---
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 She also reports recently eating shrimp and developing similar symptoms and she felt like her throat was closing. Benadryl helped. Will send epipen. Pt knows to keep benadryl with her. Will also order RAST testing. Denies fever, chills, and dizziness. [facility] Medical History Pulmonary embolism SVT (supraventricular tachycardia) Surgical History Hx of prior ablation treatment Family History Father HTN (hypertension) CVD (cardiovascular disease) Diabetes mellitus Mother No problems noted. Sister No problems noted. Maternal Grandfather History of blood clots Social History Housing: House Alcohol intake: current Alcohol intake frequency: does not drink Patient Tobacco Use Status: Never used Tobacco e-Cigarette/Vaping Use: Never Used Second Hand Smoke Exposure: Yes service: No Current occupational status: employed Cognitive needs: No Hearing needs: No Vision needs: Yes Questionnaire Thrive Questionnaire Date Thrive assessed: 05/25/24 WARREN-7 AMB Questionnaire WARREN-7 Date WARREN - 7 assessed: 05/26/24 Source: Developed by Drs. Neil Roy, Lydia Khan, Vinnie Mendoza and colleagues, with an educational ketty from [employer]. Review of Systems Const Reports as per HPI Physical exam (Primary Care) Tobacco/Smoking Status: Tobacco use Status Tobacco use date assessed 02/24/24 07/08/24 07:12 Patient Tobacco Use Status Never used Tobacco 07/08/24 07:12 e-Cigarette/Vaping Use Never Used 07/08/24 07:12 Thrive Assessment: Date of Thrive Assessment Date Thrive assessed 05/25/24 07/08/24 07:12 Const General: cooperative Orientation/consciousness: patient oriented x3 Neuro General: patient oriented x3 Psych Appearance: grossly normal Mental Status: mental status grossly normal Speech and movement: Clear speech present Affect: normal affect Attitude: cooperative Thought process: Normal thought process present Thought content: Normal thought content present Insight: Good insight present (Psych) Judgement: Good judgement present (Psych) Telehealth Telehealth Telehealth Platform: [employer] Location of provider rendering services: practice address Location of patient: address on file Patient Identification confirmed using: Name, : Yes Telehealth method: video Patient verbally consented to treatment: Yes Patient verbally consented to billing insurance company: Yes Patient informed of any privacy concerns related to visit: Yes Minutes spent on Phone/Video with Pt.: 10 Assessment and Plan Assessment & Plan (1) Allergic reaction: Code(s): T78.40XA - Allergy, unspecified, initial encounter Plan: instructed to keep benadryl on her, and epi pen that was sent. Plan The patient agreed to the use of a medical translator for this encounter. Scribed for MONTSE Guerrier-JASON by kathia Devine scribe, on 07/08/2024 at 07:05 EST. Medications: New epinephrine (EpiPen 2-Bill) for 2 doses 0.3 mg (0.3 mL) IM Q10M PRN 2 ea 0RF anaphylaxis Discontinued sulfamethoxazole-trimethoprim 800-160 mg (Bactrim DS) Discontinued Reason: No Longer Medically Relevant 1 tab PO BID 3 days 6 tabs 0RF Coding Level of Care Code Tele Est Pt Level 3 (16407) Diagnoses Allergic reaction T78.40XA
== END 2024-07-08 07:53 | disposition home or self-care (01) ==
LOC: HO.HMGC 07:34
PROVIDERS: PCP Nurse Practitioner Family; Visit Provider Nurse Practitioner Family
DX: T78.40XA Allergy, unspecified, initial encounter (principal)
CPT/HCPCS: 99213

== ENCOUNTER → 2024-11-01 08:10 | Outpatient (BNVA) | payer OTHER, SELFPAY | PROVIDERS: PCP Nurse Practitioner Family; Visit Provider Nurse Practitioner Family ==

== ENCOUNTER 2024-11-08 14:49 | Outpatient (AMB) | payer OTHER, MEDICAID, SELFPAY ==
--- NOTE | 2024-11-08 14:50 | A.OFFPC_ITS ---
Vital Signs 11/08/24 14:51 Height 5 ft 5 in Weight 270 lb BMI 44.9 BP 122/80 Blood Pressure Location Rt brachial Position Sitting Pulse 99 Pulse Source Pulse Oximeter Pulse Oximetry (%) 98 Oxygen Delivery Method Room Air Intake Visit Reasons: DM follow up Intake Note: pt is here for f/up Allergies erythromycin base Allergy (Severe, Verified 11/08/24 14:53) Watery Eye Environmental Allergy (Mild, Uncoded 05/26/24 09:26) Unknown Tobacco use date assessed: 11/08/24 Dental Screening Dental Screen Date: 11/08/24 Did you have a dental visit in the last 12 months?: Yes Did you have a dental problem in the last 6 months where you did not have access to dental care?: No Was dental information given to patient?: Patient has dentist HPI DM follow up HPI Details Chief Complaint Patient reports concerns about blood sugar levels during . History of Present Illness The patient is a 29-year-old female presenting with concerns related to blood sugar management. Previously, she was noted to have an elevated A1c of 6.4% back in February, after which she was started on metformin by her processing lead; however, she did not receive a formal diagnosis of diabetes. At today's visit, her A1c is reported to be 6.2%. The patient denies previous fasting before recorded glucose levels above 126 mg/dL. She is aware of being on the borderline for diabetes diagnosis and is keen on managing her condition further. The patient is currently approximately 12 weeks . She acknowledges her preference for carbohydrate-rich foods and confirms limited consumption of sweets. Social History - Denies consumption of sweets but repor ts a preference for carbohydrates. - Acknowledges the necessity for dietary adjustments. Health Maintenance - Education provided on dietary modifica tions for carbohydrate intake in light of . - Continues monitoring of A1c levels due to pre-diabetic state. Review of Systems - Endocrine: Reports concerns about carb ohydrate intake. - Obstetric: Denies experiencing gestati onal diabetes previously. Physical Exam General: Morbidly obese, cooperative, healthy appearing, comfortable, no acute distress and well developed Orientation: Patient oriented x3 Limitations: No limitations Head: Normal to inspection Ears: Hearing grossly normal bilaterally Nose: Normal external nose present Face and sinus: Normal facial exam Eyes: Appearance normal, both eyes and all related structures Neck: Normal visual inspection and Yes full ROM Respiratory: Lungs were fairly clear bilaterally Cardiovascular: Regular rate and rhythm. Normal S1 and S2 GI: Normal to inspection. Soft to palpation and nontender Skin: No rashes or lesions noted Neuro: Patient oriented x3 Extremities: Normal to inspection Results - Labs: Hemoglobin A1c at 6.2% Plan - Continue monitoring blood glucose leve ls and A1c due to pre-diabetes, especially during . - Emphasized dietary changes focusing on reduction of carbohydrate intake. - Monitor weight and development of preg margarita with regular follow-up visits. Patient was informed and verbally consented to the use of an ambient scribe for clinic note documentation during this visit. Discussion Notes I discussed with the patient the significance of her current A1c level and the importance of maintaining it below diabetic thresholds, especially during . We reviewed dietary recommendations, emphasizing the need to limit carbohydrates and adopt a balanced approach to nutrition to support her . The patient understands the benefits and necessity of these lifestyle modifications. We will continue follow-up appointments to monitor her A1c levels and progress in managing her pre-diabetes through . Patient Instructions - Limit carbohydrate intake and focus on a balanced diet. - Monitor blood glucose levels as advise d. - Attend regular checks. - Report any unusual symptoms or concern s promptly. [facility] Medical History Pulmonary embolism SVT (supraventricular tachycardia) Surgical History Hx of prior ablation treatment Family History Father HTN (hypertension) CVD (cardiovascular disease) Diabetes mellitus Mother No problems noted. Sister No problems noted. Maternal Grandfather History of blood clots Social History Housing: House Alcohol intake: current Alcohol intake frequency: does not drink Patient Tobacco Use Status: Never used Tobacco e-Cigarette/Vaping Use: Never Used Second Hand Smoke Exposure: Yes service: No Current occupational status: employed Cognitive needs: No Hearing needs: No Vision needs: Yes Questionnaire PHQ-9 Over the last 2 weeks, how often have you been bothered by any of the following problems? 1. Little interest or pleasure in doing things: not at all 2. Feeling down, depressed, or hopeless: not at all 3. Trouble falling or staying asleep, or sleeping too much: more than half the days 4. Feeling tired or having little energy: more than half the days 5. Poor appetite or overeating: not at all 6. Feeling bad about yourself - or that you are a failure or have let yourself or your family down: not at all 7. Trouble concentrating on things, such as reading the newspaper or watching television: not at all 8. Moving or speaking so slowly that other people could have noticed. Or the opposite - being so fidgety or restless that you have been moving around a lot more than usual: not at all 9. Thoughts that you would be better off or of hurting yourself in some way: not at all Total score: 4 Depression Screening Interpretation: Negative Depression Screening Done: Yes 12511 - PHQ-9 Billing: Yes Source: Developed by Drs. Neil Roy, Lydia Khan, Vinnie Mendoza and colleagues, with an educational ketty from [employer]. Thrive Questionnaire Date Thrive assessed: 11/08/24 I am a: Patient What is your living situation today?: I have a steady place to live Within the past 12 months, did the food you bought not last and you didn't have the money to get more?: Never true Within the past 12 months, did you worry whether your food would run out before you got money to buy more?: Never true Do you have trouble paying for medicines?: No Do you have trouble getting transportation to medical appointments?: No Do you have trouble paying your heating and electricity bill?: No Do you have trouble taking care of your child, family member or friend?: No Do you have trouble with day-to-day activities such as bathing, preparing meals, shopping, managing finances, etc.?: No Are you currently unemployed and looking for a job?: No Are you interested in more education?: No Please select the resources that you would like help with: None Currently or been in a relationship where the following occur: No concerns reported THRIVE Score: 0 AUDIT C Alcohol Use Questionnaire (AUDIT-C) 1. How often do you have a drink containing alcohol?: Never 3. How often do you have six or more drinks on one occasion?: Never Total Score: 0 Score Reviewed/Action Taken: Yes WARREN-7 AMB Questionnaire WARREN-7 Date WARREN - 7 assessed: 11/08/24 Feeling nervous, anxious, or on edge: 0 = Not at all Not being able to stop or control worryin = Not at all Worrying too much about different things: 0 = Not at all Trouble relaxin = Several days Being so restless that it is hard to sit still: 0 = Not at all Becoming easily annoyed or irritable: 0 = Not at all Feeling afraid as if something awful might happen: 0 = Not at all Total WARREN-7 score (0-4 normal; 5-9 mild; 10-14 moderate; 15-21 severe): 1 Source: Developed by Drs. Neil Roy, Lydia Khan, Vinnie Mendoza and colleagues, with an educational ketty from [employer]. WARREN-7 Assessment Billing WARREN-7 Assessment Tool: WARREN-7 Assessment 59496 Physical exam (Primary Care) Vital Signs: Last Vital Signs Pulse 99 11/08/24 14:51 BP 122/80 11/08/24 14:51 Pulse Ox 98 11/08/24 14:51 Oxygen Delivery Method Room Air 11/08/24 14:51 BMI result Body Mass Index 44.9 Tobacco/Smoking Status: Tobacco use Status Tobacco use date assessed 11/08/24 11/08/24 14:55 Patient Tobacco Use Status Never used Tobacco 11/08/24 14:51 e-Cigarette/Vaping Use Never Used 11/08/24 14:51 PHQ-9: PHQ-9 Score PHQ-9: Total score 4 11/08/24 14:55 Depression Screening Interpretation: Negative Thrive Assessment: Date of Thrive Assessment Date Thrive assessed 11/08/24 11/08/24 14:55 Currently or been in a relationship where the following occur: No concerns reported Coding Level of Care Code Est Pt Level 3 (49097) Diagnoses Elevated fasting blood sugar R73.01 Additional Codes WARREN-7 Assessment Billing - WARREN-7 Assessment Tool: WARREN-7 Assessment 70582 ([id number]) PHQ-9 - 10004 - PHQ-9 Billing: Yes ([id number]) Assessment & Plan Assessment & Plan (1) Elevated fasting blood sugar: Code(s): R73.01 - Impaired fasting glucose Category: Medical Plan . Orders: Orders Complete Blood Count Auto Diff Today R73.01 - Impaired fasting glucose Comprehensive [place]. Panel Fast Today R73.01 - Impaired fasting glucose TSH reflex Free T4 Today R73.01 - Impaired fasting glucose UA CC w/rflx Micro + Cult Today R73.01 - Impaired fasting glucose Lipid Panel Today R73.01 - Impaired fasting glucose
[2024-11-08 14:51] VITALS: BP 122/80; PULSE 99; O2SAT 98; BMI 44.9
--- OUTSIDE RECORDS SUMMARY | 2024-11-08 18:48 | XMS_ITS ---
Author Name [facility] Organization Unknown History of Medication Use Medication Directions Dispensed Refills Start Date End Date Stat methylPREDNISolone (MEDROL DOSEPAK) 4 MG tablet follow package directions 01/25/2024 active cyclobenzaprine (FLEXERIL) 10 MG tablet Take 1 tablet (10 mg total) by mouth 3 times daily (every 8 hours) as needed for muscle spasms. 01/25/2024 active aspirin enteric coated 81 MG EC tablet Take 1 tablet (81 mg total) by mouth daily. 01/15/2023 aborted aspirin enteric coated (aspirin) 325 MG EC tablet Take 1 tablet (325 mg total) by mouth daily. 10/18/2022 aborted benzonatate (TESSALON) 100 MG capsule Take 1 capsule (100 mg total) by mouth 3 (three) times a day as needed for cough. 10/18/2022 active iohexol (OMNIPAQUE) 350 mg/mL injection 50 mL 50 mL, Intravenous, Once in imaging, contrast, Starting on Fri12/09/22 at 1126, For 1 dose, Radiology Appointment 12/11/2022 completed No known medications No known medications 07/30/2022 active metoPROLOL SUCCINATE (TOPROL-XL) 25 MG 24 hr tablet Take 1 tablet (25 mg total) by mouth daily. 10/18/2022 active Problems Problem Status Onset Date Problem Type Date of Resoluti on Source Numbness and tingling of left upper extremity active 2024-01-23 [facility]Act [facility] Left carpal tunnel syndrome active 2024-05-21 [facility] Neck pain active 2024-01-23 [facility] Cervical myofascial pain syndrome active 2024-05-21 [facility] Vertebral artery dissection active 2022-07-26 [facility]Act [facility]
--- OUTSIDE RECORDS SUMMARY | 2024-11-08 18:48 | XMS_ITS | Continuity of Care Document ---
Author Organization [facility] Address [address] [place] [id number] Care Team Providers Care Electric Motor Repair Supervisor Name Role Phone Perfecto GARCIA, Hal Goodman Primary Care Physician [place] [facility] [place] - 10/21/[address] [address]- Encounter Type: Triage Allergies, Adverse Reactions, Alerts No Known Allergies Immunizations Given and Recorded Vaccine Date Status Refusal Reason pneumococcal 23-valent vaccine 11/02/15 Given Medications metFORMIN 500 mg oral tablet See Instructions, 3 tablets By Mouth Daily, 0 Refills, Maintenance, 07/14/24 7:41:00 AM EDT, Tablet,Partial fill upon patient request if the prescription is for a schedule II opioid drug. Start Date: 07/14/24 Status: Ordered Repeat number: 1 Prenatabs Rx oral tablet 1 tablet, By Mouth, Daily, # 90 tablet, 3 Refills, Maintenance, 03/10/24 1:23:00 PM EDT, Tablet, [facility], Partial fill upon patient request if the prescription is for a schedule II opioid drug., 1 tablet By Mouth Daily, 165, cm, 03/10/24 13:05:00 EDT, Height Start Date: 03/10/24 Status: Ordered Quantity: 90.0 Unit: tablet Repeat number: 4 Progesterone = 200 mg, Vaginally, 2 times a day, 0 Refills, Maintenance, 10/04/24 10:36:00 PM EST, Partial fill upon patient request if the prescription is for a schedule II opioid drug. Start Date: 10/04/24 Status: Ordered Repeat number: 1 Problem List Condition Confirmation Course Effective Dates Status H ealth Status Informant History of pulmonary embolism Confirmed Active History of supraventricular tachycardia Confirmed Active History of cardiac radiofrequency ablation Confirmed Active Encounter for preconception consultation Confirmed Active Severe obesity Confirmed Active Social History Social History Type Response Smoking Status Never (less than 100 in lifetime) entered on: 10/12/24 Sex Sex Representation Female (finding) Patient Care team information Care Team Personnel Name: Jhoana Han RN Position: [facility] RN Member Role: Primary Care Nurse Name: Hal Grove NP Position: Reference Physician Member Role: PCP Address: [address] [place] [address] Telecom: Care Team Related Persons Name: SHAN ROSE Name: JAYDEN VIRGEN Insurance Providers Guarantor name: [facility] Information #: 1 Payer: [employer] H[employer] Member Number: NA Policy Number: NA Group Number: [id number]
--- OUTSIDE RECORDS SUMMARY | 2024-11-08 18:48 | XMS_ITS | Continuity of Care Document ---
Author Organization [facility] Address [address] [place] [address] Phone Care Team Providers Care Harness Mender Name Role Phone Unavailable Unavailable Unavailable Allergies, Adverse Reactions, Alerts Substance Reaction Status Criticality No Known Allergies Active No Inform ation Problems Condition Type Effective Dates (start - stop) [facility] [place] Status Comments No Known Problems Procedures Procedure Date URINE TEST, BY [facility] OFFICE/OUTPATIENT VISIT, [facility] Advance Directives Directive Yes / No Effective Date File Name No Information Encounters Encounter Description Practice Location Reason(s) For Visit Diagnoses Date Provider Providers Copied on Encounter OFFICE/OUTPA TIENT VISIT, [facility], [address] [place], [address], [place] tel:[phone] [facility] Abnormal Menses (chief complaint) Encounter for test, [...] republican ID Authoriza tion(s) ILA Mims MC [id number] Social History Type Description Quantity Date Captured [...] initiating any intervention if needed-Recently moved to [place] from [place] 3 months ago, will obtain [...] Mental Status Date Cognitive Assessment Orientation - [place] ed to time, place, person, situation. Patient Care Teams Name Effective Dates (start - stop) Status Members No Information
== END 2024-11-08 15:38 | disposition home or self-care (01) ==
PROVIDERS: PCP Nurse Practitioner Family; Visit Provider Nurse Practitioner Family
DX: R73.01 Impaired fasting glucose (principal)

== ENCOUNTER → 2024-11-08 14:49 | Outpatient (BNVA) | payer OTHER, SELFPAY | PROVIDERS: PCP Nurse Practitioner Family; Visit Provider Nurse Practitioner Family | DX: R73.01 Impaired fasting glucose (principal) | CPT/HCPCS: 96127 ==

== ENCOUNTER 2024-12-15 08:32 | Outpatient (REF) | payer OTHER, MEDICAID, SELFPAY ==
--- NOTE | ~2024-12-15 | XR_ITS ---
EXAMINATION: XR CHEST CLINICAL INFORMATION: J06.9 - Acute upper respiratory infection, unspecified COMPARISON: 05/07/2021, 04/18/2021 TECHNIQUE: 2 views of the chest were obtained. FINDINGS: The cardiac, hilar, and mediastinal contours are normal. Lungs demonstrate low lung volumes with mild bronchovascular crowding in both lung bases. Within these confines, the lungs are clear. There is no pneumothorax or pleural effusion. There is no focal osseous or soft tissue abnormality. XR/XR chest 2V IMPRESSION: Low lung volumes without active pulmonary disease. Electronically signed by: Herb Correia MD 12/15/2024 09:30 AM [facility]
--- OUTSIDE RECORDS SUMMARY | 2024-12-15 09:23 | XMS_ITS | Clinical Summary ---
Author Organization [facility] Address [address] [place] [address] Care Team Providers Care Cross Cut Sawyer Name Role Phone Hal Grove MD Primary [...] drink = 0.6 oz pur e alcohol) [facility] Bonnie of Occupat ional Health - Occupational Stress [...] Inactivated Comments 07/26/2022 5:13 AM Care Teams Cross Cut Sawyer Relationship Specialty Start Date End Date Hal Grove MD [address] [place] [address] PCP - General Family Medicine 10/15/22
--- OUTSIDE RECORDS SUMMARY | 2024-12-15 09:23 | XMS_ITS | Encounter Summary ---
Author Organization [facility] Address [address] [place] [address] Care Team Providers Care Education Consultant Name Role Phone Hal Grove MD Primary Care Provider Encounter Details Date Type Department Care Team ([facility] st Contact Info) Description 01/28/2023 Scanned Document [facility] Neuroscience [facility] [address] [phone] Abdulaziz Clark MD [address] [facility] [address] [place] [id number] Social History Tobacco Use Types Packs/Day Years [...] on filedocumented in this encounter Care Teams Education Consultant Relationship Specialty Start Date End Date Hal Grove MD [address] [place] [address] PCP - General Family Medicine 10/15/22 documented as of this encounter
--- OUTSIDE RECORDS SUMMARY | 2024-12-15 09:23 | XMS_ITS | Continuity of Care Document ---
Author Organization [facility] vices Address [address] [place] [address] Phone Care Team Providers Care Solution Design And Analysis Manager Name Role Phone Unavailable Unavailable Unavailable Allergies, Adverse Reactions, Alerts Substance Reaction Status Criticality No Known Allergies Active No Inform ation Problems Condition Type Effective Dates (start - stop) Clini [place] Status Comments No Known Problems Procedures Procedure Date URINE TEST, BY VISUAL COLOR CO MPARISON OFFICE/OUTPATIENT VISIT, [facility] Advance Directives Directive Yes / No Effective Date File Name No Information Encounters Encounter Description Practice Location Reason(s) For Visit Diagnoses Date Provider Providers Copied on Encounter OFFICE/OUTPA TIENT VISIT, [facility], [address] [place], [address], [place] tel:[phone] [facility] Abnormal Menses (chief complaint) Encounter for [...] us Payers Payer name Insurance type Covered green party ID Authoriza tion(s) ILA Mims MC [id number] Social History Type Description Quantity Date Captured [...] initiating any intervention if needed-Recently moved [place] 3 months ago, will obtain medical records [...] Mental Status Date Cognitive Assessment Orientation - Cla[place]on ed to time, place, person, situation. Patient Care Teams Name Effective Dates (start - stop) Status Members No Information
--- OUTSIDE RECORDS SUMMARY | 2024-12-15 09:23 | XMS_ITS | Clinical Summary ---
Author Organization [facility] Address [address] [place] [address] Care Team Providers Care Saturation Equipment Operator Name Role Phone Unavailable Primary Care [...]
--- OUTSIDE RECORDS SUMMARY | 2024-12-15 09:23 | XMS_ITS | Encounter Summary ---
Author Organization [facility] Address [address] [place] [address] Care Team Providers Care Overcaster Name Role Phone Hal Grove MD Primary Care Provider Encounter Details Date Type Department Care Team ([facility] st Contact Info) Description 01/31/2023 Scanned Document [facility] Neuroscience [facility] [address] [phone] Abdulaziz Clark MD 85 [facility] [address] [place], [place] [id number] Social History Tobacco Use Types Packs/Day Years [...] on filedocumented in this encounter Care Teams Overcaster Relationship Specialty Start Date End Date Hal Grove MD [address] [place] [address] PCP - General Family Medicine 10/15/22 documented as of this encounter
--- OUTSIDE RECORDS SUMMARY | 2024-12-15 09:23 | XMS_ITS | Clinical Summary ---
Author Organization [facility] ity Address [address] [place] [address] Care Team Providers Care General Agent Name Role Phone Unavailable Primary Care Provider [...]
--- OUTSIDE RECORDS SUMMARY | 2024-12-15 09:23 | XMS_ITS | Encounter Summary ---
Author Organization [facility] Address [address] [place] [address] Care Team Providers Care Internal Medicine Veterinary Technician Name Role Phone Hal Grove MD Primary Care Provider Encounter Details Date Type Department Care Team ([facility] st Contact Info) Description 01/28/2023 Scanned Document [facility] Neuroscience [facility] [address] [phone] Abdulaziz Clark MD 85 [facility] [address] [place] [id number] Social History Tobacco Use Types Packs/Day Years [...] on filedocumented in this encounter Care Teams Internal Medicine Veterinary Technician Relationship Specialty Start Date End Date Hal Grove MD [address] [place] [address] PCP - General Family Medicine 10/15/22 documented as of this encounter
== END 2024-12-15 08:33 | disposition home or self-care (01) ==
LOC: HO.HMGCX 08:32
PROVIDERS: PCP Nurse Practitioner Family; Visit Provider Physician Assistant
DX: J06.9 Acute upper respiratory infection, unspecified (principal)
CPT/HCPCS: 71046

== ENCOUNTER 2024-12-15 08:32 | Outpatient (AMB) | payer OTHER, MEDICAID, SELFPAY ==
--- OUTSIDE RECORDS SUMMARY | 2024-12-15 08:35 | XMS_ITS | Clinical Summary ---
Author Organization [facility] Address [address] [place] [address] Care Team Providers Care Resizer Operator Name Role Phone Unavailable Primary Care Provider Unavailabl e Allergies No known active allergies Medications Medication Sig Dispensed Refills Start Date End Date Status guaifenesin-codeine (ROBITUSSIN-AC) 100-10 MG/5ML syrup 2 tsp q 4-6 hours prn cough 120 mL 0 03/16/2017 Active predniSONE (DELTASONE) tablet 20 mg 3 tabs daily 15 tablet 0 03/16/2017 Active traMADol (ULTRAM) 50 MG tablet Take 50 mg by mouth every 6 (six) hours as needed for pain. 30 tablet 0 04/28/2017 Active diazepam (VALIUM) tablet 5 mg Take 1 tablet (5 mg total) by mouth every 6 (six) hours as needed. 10 tablet 0 04/28/2017 Active naproxen (NAPROSYN) 500 MG tablet Take 1 tablet (500 mg total) by mouth 2 (two) times a day with meals. 20 tablet 0 05/09/2017 Active Social History Tobacco Use Types Packs/Day Years Used Date Smoking Tobacco: Never Alcohol Use Standard Drinks/Week Comments No 0 (1 standard drink = 0.6 oz pur e alcohol) Sex and Gender Information Value Date Recorded Sex Assigned at Not on file Gender Identity Not on file Sexual Orientation Not on file Last Filed Vital Signs Vital Sign Reading Time Taken Comments Blood Pressure 131/79 05/09/2017 3:21 PM EDT Pulse 89 05/09/2017 3:21 PM EDT Temperature 36.7 ??C (98.1 ??F) 05/09/2017 3:21 PM ED T Respiratory Rate 16 05/09/2017 3:21 PM EDT Oxygen Saturation 99% 05/09/2017 3:21 PM EDT Inhaled Oxygen Concentration - - Weight 117.9 kg (260 lb) 05/09/2017 12:38 PM EDT Height 165.1 cm (5' 5 ) 04/28/2017 12:08 PM EDT Body Mass Index 43.27 04/28/2017 12:08 PM EDT Plan of Treatment Health Maintenance Due Date Last Done Comments Hepatitis B Vaccines (1 of 3 - 3-dose series) 1993 Hepatitis C Screening 1993 COVID-19 Vaccine (#1) 1993 Depression Screening 2005 Preventative Health Evaluation 2011 DTap / Tdap / Td (1 - Tdap) 02/17/2012 Cervical Cancer Screening (P ap Smear) 2014 Influenza Vaccine (#1) 2024 Pneumococcal Vaccine Aged Out No long er eligible based on patient's age to complete this topic RSV Ped < 20 months Aged Out No longe r eligible based on patient's age to complete this topic
--- OUTSIDE RECORDS SUMMARY | 2024-12-15 08:35 | XMS_ITS | Encounter Summary ---
Author Organization [facility] Address [address] [place] [address] Care Team Providers Care Hothouse Worker Name Role Phone Hal Grove MD Primary Care Provider Encounter Details Date Type Department Care Team ([facility] st Contact Info) Description 01/31/2023 Scanned Document [facility] [address] [id number] Abdulaziz Clark MD 85 [facility] [address] [place], [place] [id number] Social History Tobacco Use Types Packs/Day Years Used Date Smoking Tobacco: Some Days Smokeless Tobacco: Never Alcohol Use Standard Drinks/Week Comments Not Currently 2 (1 standard drink = 0.6 oz pur e alcohol) Sex and Gender Information Value Date Recorded Sex Assigned at Female 01/20/2024 12:00 PM EDT Gender Identity Female 01/20/2024 12:00 PM EDT Sexual Orientation Heterosexual (straight) 01/19 12:00 PM EDT COVID-19 Exposure Response Date Recorded In the last 10 days, have yo u been in contact with someone who was confirmed or suspected to have Coronavirus/COVID-19? No / Unsure 01/06/2023 10:20 AM EDT documented as of this encounter Plan of Treatment Not on file documented as of this encounter Visit Diagnoses Not on filedocumented in this encounter Care Teams Hothouse Worker Relationship Specialty Start Date End Date Hal Grove MD [address] [place] [address] PCP - General Family Medicine 10/15/22 documented as of this encounter
--- OUTSIDE RECORDS SUMMARY | 2024-12-15 08:35 | XMS_ITS | Continuity of Care Document ---
Author Organization [facility] ter Address [address] [place] [id number]- Care Team Providers Care News Writer Name Role Phone Perfecto GARCIA, Hal Goodman Primary Care Physician [phone] Encounter [facility] ACCT R [id number] Date(s): 11/15/24 - 11/16/[address] [address] Discharge Disposition: A-D/C Home Attending Physician: Rafa Tirado MD Admitting Physician: Rafa Tirado MD Referring Physician: Rafa Tirado MD Encounter Type: One Time OP Allergies, Adverse Reactions, Alerts No Known Allergies Immunizations Given and Recorded Vaccine Date Status Refusal Reason pneumococcal 23-valent vaccine 11/02/15 Given Medications aspirin 81 mg oral delayed release tablet 162 mg, 2, tablet, By Mouth, Daily, # 90 tablet, Refills 0, Tot. Refills 0, Maintenance, 11/11/24 3:02:00 PM EST, Route to Pharmacy Electronically, [facility], Partial fill upon patient request if the prescription is for a schedule II opioid drug., 165, cm, 11/11/24 14:52:00 EST, Height, 119.9, kg, 10/04/24 13:45:00 EST, Dry Weight Start Date: 11/11/24 Status: Ordered Quantity: 90.0 Unit: tablet Repeat number: 1 metFORMIN 500 mg oral tablet See Instructions, 3 tablets By Mouth Daily, 0 Refills, Maintenance, 07/14/24 7:41:00 AM EDT, Tablet,Partial fill upon patient request if the prescription is for a schedule II opioid drug. Start Date: 07/14/24 Status: Ordered Repeat number: 1 MiraLax oral powder for reconstitution = 17 Gm, By Mouth, Daily, dissolve in 4 to 8 oz of beverage, # 510 Gm, 0 Refills, Acute 12/25/24 2:00:00 AM EST, 11/16/24 1:08:00 AM EST, REC Powder, [facility], Partial fill upon patient request if the prescription is for a schedule II opioid drug., 17 Gm By Mouth Daily,Instr:dissolve in 4 to 8 oz of beverage, 165, cm, 11/15/24 23:14:00 EST, Height, 119.9, kg, 10/04/24 13:45:00 EST, Dry Weight Start Date: 11/16/24 Stop Date: 12/25/24 Status: Ordered Quantity: 510.0 Unit: g Repeat number: 1 Indication: Diseases of the digestive system complicating , unspecified trimester Prenatabs Rx oral tablet 1 tablet, By [...] History of cardiac radiofrequency ablation Confirmed Active Class 3 obesity Confirmed Active Encounter for preconception consultation Confirmed Active Prediabetes Confirmed Active Severe obesity Confirmed Active Vital Signs Most recent to oldest [Reference Range]: 1 2 3 Height 165 cm (11/15/24 10:50 PM) Weight 123.1 kg (11/15/24 10:47 PM) Oxygen Saturation [94-100 %] 100 % (11/15/24 10:47 PM) Pulse Rate [55-90 bpm] 106 bpm *H* (11/15/24 10:47 PM) Blood Pressure [90-138/55-84 mm Hg] 141/78mm Hg *H* (11/15/24 10:58 PM) 143/87mm Hg *H* (11/15/24 10:47 PM) Respiratory Rate [16-30 br/min] 18 br/min (11/15/24 10:53 PM) Temperature [96.8-100.4 DegF] 99.0 DegF (11/15/24 10:47 PM) Mode of Delivery (Oxygen) Room air (11/15/24 10:53 PM) Blood pressure sites Arm, left (11/15/24 10:58 PM) Arm, left (11/15/24 10:53 PM) Arm, right (11/15/24 10:47 PM) Temperature Route Oral (11/15/24 10:53 PM) Oral (11/15/24 10:47 PM) Weight Obtained Via Standing scale (11/15/24 10:47 PM) Social History Social History Type Response Smoking Status Never (less than 100 in lifetime) entered on: 10/12/24 Sex Sex Representation Female (finding) Note * Edwar NAJERA, Rola Ramos: PERFORM Event Display: Discharge/Transfer Note Hospital Authored Date: [id number] Nursing Discharge Note Entered On: 11/16/2024 1:16 EST Performed On: 11/16/2024 1:16 EST by Rola Vann RN Nursing Discharge Note 2 Discharge Time : 11/16/2024 1:13 EST Discharge Level of Care at Discharge : Home/Chcf/Foster Care Patient Left Unit Via : Ambulatory Patient Accompanied Off Unit with : Significant other DC Instructions Provided & Signed by Pt : Yes Patient Understands D/C Instructions : Yes Patient Instructions Discharge Signed : Yes Did Pt have Specialty Bed or Wound Vac : No Rola Vann RN - 11/16/2024 1:16 EST * Event Display: Discharge/Transfer Note Hospital Authored Date: [id number] * Rola Vann RN: PERFORM Event Display: Patient Education/Instruction Authored Date: [id number] Inpatient Adult Discharge Instructions. [address] [address] Name: IRISH SAAB : 1995?? Visit: 11/15/2024 22:44?? Current Date: 11/16/2024 00:57 ?? Account: [id number]?? Inpatient Adult Discharge Instructions We would like to thank you for allowing us to assist you with your healthcare needs. The following includes patient education materials and information regarding your injury/illness. Our entire staffstrives to provide an excellent experience for our patients and their families. PLEASE ENSURE YOU FOLLOW-UP PER THE INSTRUCTIONS BELOW! ?? YOUR OPINION IS IMPORTANT TO US! Please complete the survey you may receive by mail or email. Your feedback will be used to make improvements to the healthcare experiences of our patients and their families. Surveys are administered by [employer] ?? If further treatment with your primary care physician or another doctor is recommended, it is important for you to keep the appointment. Call your primary care physician or return to the Emergency Department immediately if your condition worsens, fails to improve, or new symptoms develop. If you need to find a doctor, you can call [facility] for a referral at [phone] or toll free at [phone] or log in to [email or web address].. ?? [facility], in keeping with [facility] guidance, no longer requires face masks for staff, patientsor visitors in most situations. Similiar to time spent indoors at other locations, there is the chance that you were exposed to repiratory viruses during your time with us (such as flu or COVID-19). If you develop symptoms concerning for a viral respiratory infection, please seek testing (and treatment if indicated) from your medical provider or home test kit. ?? You can view and manage your care through the patient portal or by using a health care melinda of your choosing. [employer] is a website that allows you to securely view your medical information including your hospital discharge summary, office visit summaries, medications and follow-up visits. You can also request appointments, renew medications, and request access to your medical information using a health care melinda of your choosing, or just ask a question. You can enroll at [email or web address] or register during your next office visit. You have been discharged from [facility], Patient Care Unit: WETU1??. If you have any questions regarding these instructions, including results of studies pending, afteryou leave, please call us and we will be happy to assist you 19/05. [facility] Your Care Team Attending Physician Candida GROVER, Rafa Wynne?? Consulting Providers Rafa Tirado MD?? Your Diagnosis Threatened Tests Performed Below is a partial list of the tests performed during your hospitalization. You may have had other tests and procedures not included in this list. Please discuss all test results with your provider. No tests performed during this visit.?? Primary Care Provider Perfecto GARCIA , Hal Goodman? Advance Directive Health Care Proxy on File No Patient has a Designated Caregiver: No Discharge Vitals Temperature: 99 DegF Height: 165 cm Pulse Rate:??106 bpm??High Weight: 123.1 kg Respiratory Rate: 18 br/min ?? Systolic Blood Pressure:??141 mm Hg??High ?? Diastolic Blood Pressure: 78 mm Hg ?? Oxygen Saturation: 100 % ?? Studies Pending All studies ordered during this hospital stay have been completed unless listed below. Please discuss all pending results with your provider listed above in these instructions. ?? No incomplete studies found?? What to do next Instructions From Your Doctor ?? Orders?? Scheduled Follow-Up Appointments 2024 4:00 PM EST ?? Where: [facility] [address] [place] [address]- Status: Pending 2024 4:20 PM EST ?? With: Shaw Mauro MD Where: [facility] [address] [place] [address]- Status: Pending 2024 4:20 PM EDT ?? With: Nevaeh Dutta DO Where: [facility] [address] [place] [address]- Status: Pending 2024 4:20 PM EDT ?? With: Tate Kirk MD Where: [facility] [address] [place] [id number]- Status: Pending You Need to Schedule the Following Appointments Follow Up with??[facility] [phone] Discharge Medications IRISH SAAB :1995 Visit Date:11/15/2024 Medications: Please continue your medications until treatment is completed or stopped by your provider. Medications not listed below should be discontinued. Discuss any questions related to medications with your provider. What How Much When Instructions Next Dose Unchanged Aspirin (aspirin 81 mg oral delayed release tablet) 2 tab(s) Oral Daily Unchanged Metformin (metFORMIN 500 mg oral tablet) See instructions 3 tablets By Mouth Daily ?? Unchanged Multivitamin, (Prenatabs Rx oral tablet) 1 tab(s) Oral Daily Unchanged Progesterone 200 Milligram Vaginally Twice a day Prescription Given During Visit No new medications prescribed at time of discharge.?? Laboratory Results Below is a partial list of the most recent Laboratory test results done prior to this discharge. You may have had other tests and procedures not included in this list. Please discuss all test resultswith your provider. Allergies (NKA means No Known Allergies) NKA Problems Active Problems??(8) Class 3 obesity?? Encounter for preconception consultation?? History of cardiac radiofrequency ablation?? History of pulmonary embolism?? History of supraventricular tachycardia?? Prediabetes? Severe obesity?? Education Materials Below is the list of Educational Leaflet Providered with your Discharge Instructions. [employer] Patient Education - Bleeding During Early ?? [employer] Patient Education - Abdominal Pain and Early ?? [employer] Patient Education - Possible Miscarriage (Threatened )?? Valuables and Belongings I fully understand and agree that [facility] accepts no responsibility for all my personal property including clothing, toilet articles, radios, jewelry, dentures, hearing aids, rings, money, or any other property that is in my possession or is brought to me after admission. I understand certain valuables may be placed in a hospital safe for a short period of time. I understand that the hospital is not liable for loss or damage due to accident, fire, or other natural occurrence while said property is in the safe. I accept full responsibility for any personal property that I keep with me, and will not hold the hospital responsible in case of loss or disappearance. I acknowledge that i have been encouraged to send valuables and belongings home. ? Other Discharge Information ? Pulmonary Rehab Status?? Pulmonary Rehab Discharge Status?? Respiratory Rate: 18 br/min ? Common Emergency Awareness Tips IS IT A STROKE? Act FAST and Check for these signs: FACE Does the face look uneven? ARM Does one arm drift down? SPEECH Does their speech sound strange? TIME Call at any sign of stroke ?? Heart Attack Signs Chest discomfort: Most heart attacks involve discomfort in the center of the chest and lasts more than a few minutes, or goes away and comes back. It can feel like uncomfortable pressure, squeezing, fullness or pain. Discomfort in upper body: Symptoms can include pain or discomfort in one or both arms, back, neck, jaw or stomach. Shortness of breath: With or without discomfort. Other signs: Breaking out in a cold sweat, nausea, or lightheaded. Remember, MINUTES DO MATTER. If you experience any of these heart attack warning signs, call to get immediate medical attention! ?? Smoking can increase your chances of developing chronic health problems and can cause harmful effects to other family members in your house. If you smoke, you are strongly encouraged to quit. Please call [facility] at [phone] or [phone] ([phone]) or log in to [email or web address] for referrals to smoking cessation programs. ?? 981 Suicide & Crisis Lifeline is available 19/05 if you or someone you know needs to find a reason to keep living. By calling 381 you'll be connected to a skilled, trained counselor at a crisis center in your area. INPATIENT DISCHARGE INSTRUCTIONS SIGNATURE PAGE SAABKG MAYFIELDZHAOTRESSA Location:[facility] Registration Date and Time:11/15/2024 22:44 EST Primary Care Physician: Perfecto GARCIA , Hal Goodman, Attending Physician: Candida GROVER, Rafa Wynne, IRISH CUENCA, have received the above patient education materials/instructions and have verbalized understanding. If ambulance or transport services are being used I further acknowledge being given a choice of service. ?? If you need to contact me, please call me at this number: . Patient/Tailer Off Name: Patient/Tailer Off Signature: Relationship to Patient: Witness Name/Signature: Date: * Rola Vann RN: PERFORM Event Display: Patient Education Leaflets Authored Date: [id number] Bleeding During Early ?? [id number] Bleeding During Early If you???ve had bleeding early in your , you???re not alone. Many other women have early bleeding, too. And in most cases, nothing is wrong. But your healthcare provider still needsto know about it. They may want to do tests to find out why you???re bleeding. Call your provider if you see bleeding during . Tell your provider if your blood is Rh negative. Then they can figure out if you need anti-D immune globulin treatment. What causes early bleeding? The cause of bleeding early in is often unknown. But many factors early on in may lead to light bleeding (called spotting) or heavier bleeding. These include: ??? Having sex ??? When the embryo implants on the uterine wall ??? Bleeding between the sac membrane and the uterus (subchorionic bleeding) ??? loss (miscarriage) ??? The embryo implants outside of the uterus (ectopic ) ?? If you see spotting Light bleeding is the most common type of bleeding in early . If you see it, call your healthcare provider. Chances are, they will tell you that you can care for yourself at home. ?? If tests are needed Depending on how much you bleed, your healthcare provider may ask you to come in for some tests. A pelvic exam, for instance, can help see how far along your is. You also may have an ultrasound or a Doppler test. These imaging tests use sound waves to check the health of your baby. The ultrasound may be done on your belly or inside your vagina. You may also need a special blood test. This test compares your hormone levels in blood samples taken 2 days apart. The results can help your provider learn more about the implantation of the embryo. Your blood type will also need to be checked to assess if you will need to be treated for Rh sensitization.?? Ultrasound can help check the health of your fetus. ?? Warning signs If your bleeding doesn???t stop or if you have any of the following, get medical care right away: ??? Soaking a sanitary pad each hour ??? Bleeding like you???re having a period ??? Cramping or severe belly pain ??? Feeling dizzy or faint ??? Tissue passing through your vagina ??? Bleeding at any time after the first trimester ?? Questions you may be asked Bleeding early in isn't normal. But it is common. If you???ve seen any bleeding, you may be concerned. But keep in mind that bleeding alone doesn???t mean something is wrong. Just be sure to call your healthcare provider right away. They may ask you questions like these to help find the cause of your bleeding: ??? When did your bleeding start? Is your bleeding very light or is it like a period? Is the blood bright red or brownish? Have you had sex recently? Have you had pain or cramping? Have you felt dizzy or faint? ?? Monitoring your Bleeding will often stop as quickly as it began. Your may go on a normal path again. You may need to make a few extra visits. But you and your baby will most likely be fine. ?? Last Reviewed Date: 2021 ?? 1530-3213 The [employer]. All rights reserved. This information is not intended as a substitute for professional medical care. Always follow your healthcare professional's instructions. ?? * Edwar NAJERA, Rola Ramos: PERFORM Event Display: Patient Education Leaflets Authored Date: [id number] Abdominal Pain and Early ?? [id number] Abdominal Pain and Early The tests you had show that you're . But the exact cause of your pain isn???t clear. Some pain and bleeding are common early in . Often they stop, and you can go on to have a normal and baby. Other times the pain or bleeding can be signs of a??miscarriage??or??ectopic . An ectopic is a very serious problem. At this time, it's unclear if your will continue normally, if you'll have a miscarriage, or if you could have an ectopic pregnan cy. Below is some information about this. Miscarriage At this time, it's not known if you'll have a miscarriage, or if things will clear up and your will continue normally. This is an emotionally difficult time. But??it's important to understand that miscarriages are common. About 1 or 2 out of every [address] Some end even before a person knows they're . This happens for many reasons. Often the cause is never found. But it???s important that you know it's not your fault. It didn???t happen because you did anything wrong. Having sex or exercising doesn't cause a miscarriage. These activities are usually safe unless you have pain or bleeding. Or unless your healthcare provider tells you to stop. Even minor falls won???t cause a miscarriage. Miscarriages happen because things weren't developing as they were supposed to. No medicine can prevent a miscarriage. ?? Ectopic In a normal , the fertilized egg attaches to the wall of the uterus. In an ectopic or tubal , the fertilized egg attaches outside the uterus, usually in the fallopian tube. In very rare cases, the egg attaches to an ovary or somewhere else in the belly (abdomen). An ectopic is much less common than a miscarriage. But it's very serious. The baby can't survive. And as itgrows it can burst (rupture) the fallopian tube. This can cause internal bleeding and even . Risk factors for an ectopic are: ??? A past ectopic ??? Pelvic inflammatory disease (PID) ??? Endometriosis ??? Smoking ??? An IUD ?? Additional tests It's not known what???s causing your symptoms. So you'll need more tests to figure out what the problem is. You may need the tests below. Ultrasound An ultrasound can often find a normal as early as 4 to 5 weeks along. If the ultrasound does not show the baby inside the uterus, it means 1 of these things: ??? You have a normal less than 4 weeks along ??? You are having or recently had a miscarriage ??? You have an ectopic hormone An HCG test measures the amount of a hormone in your blood. Comparing today's test resultto a repeat test in 2 days will show if you have a normal . Laparoscopy This is a type of surgery. The healthcare provider will put a tube with a light inside your belly to look directly at your pelvic organs. This test is used when it's not safe to wait 2 days for bloodtest results. ?? Important information If you do have an ectopic , there's a small chance that the growing fetus can tear the fallopian tube. This can cause severe internal bleeding. If this happens, you may have: ??? Sudden severe pain in your lower belly ??? Vaginal bleeding ??? Weakness, dizziness, and sometimes fainting If any of these symptoms occur: ??? Call 911 or return right away to the hospital. ??? Don't drive yourself. ??? Don't go to your healthcare provider's office or to a clinic. Go to the hospital. ?? Home care Follow these guidelines to help care for yourself at home: ??? Rest until your next exam. Don???t do any strenuous activities. ??? Eat a light diet with foods that are easy to digest. ??? Don???t have sex until your healthcare provider says it???s OK. ?? Follow-up care Follow up with your healthcare provider, or as advised. If you were told to have a repeat blood test in 2 days, it???s important to get it done. If you had an X-ray or ultrasound, a radiologist??will??review??it. You'll be told of any new findings that may affect your care. ?? Call 911 Call 911 if you have any of these: ??? Severe pain and very heavy bleeding ??? Severe lightheadedness, passing out, or fainting ??? Rapid heart rate ??? Trouble breathing ??? Confused or having trouble waking up ?? When to get medical care Call your healthcare provider right away if any of these occur: ??? The pain in your belly gets worse, either suddenly or slowly. ??? You're dizzy or weak when you stand. ??? You have heavy vaginal bleeding. This means soaking 1 pad an hour for 3 hours. ??? You have vaginal bleeding for more than 5days. ??? You have repeated vomiting or diarrhea. ??? The pain in your belly moves to the lower right. ??? You have blood in your vomit or bowel movements. This will be dark red or black. ??? You have a fever of 100.4??F (38??C) or higher, or as advised by your provider. ?? Last Reviewed Date: 2022 ?? 2840-9871 The [employer]. All rights reserved. This information is not intended as a substitute for professional medical care. Always follow your healthcare professional's instructions. ?? * Edwar NAJERA, Rola Ramos: PERFORM Event Display: Patient Education Leaflets Authored Date: [id number] Possible Miscarriage (Threatened ) ?? [id number] Possible Miscarriage (Threatened ) You may be having a miscarriage. Common signs of a miscarriage are pain and bleeding.??A small amount of bleeding can be normal during the first 3 months of . Often the pain and bleeding stop, and you have a normal and baby.??But heavy bleeding or severe cramping can be an early sign of miscarriage. A miscarriage means??an??unexpected loss of your . At this time, your healthcare provider doesn???t know whether you will have a miscarriage, or if things will clear up and your will continue normally. This can be emotionally difficult. There is little that can be done to change the way you feel. But??understand that miscarriages are common. About 1 or 2 out of every [address] Some even end before you know you are . This happens for a number of reasons, and usually the cause is never known. It???s important youknow that it is not your fault. It didn???t happen because you did anything wrong. Having sex or exercising does not cause a miscarriage. These activities are usually safe unless youhave pain or bleeding, or your healthcare provider tells you to stop. Even minor falls won???t cause a miscarriage. Miscarriages happen because things were not developing as they were supposed to. Nomedicine can prevent a miscarriage. Again, understand that things are uncertain right now. You may still have some bleeding. This may be light spotting or like a period, and you may pass some tissue. You may have some cramping. This iswhy follow-up care is important. Home care To improve the chance of keeping??your , you should take these steps: ??? Rest in bed until the pain and bleeding stop. ??? Don???t have sex until your healthcare provider says it???s OK. ??? Use sanitary napkins instead of tampons. ??? Don???t douche. ??? Don???t take aspirin, ibuprofen, or naproxen. ??? Don???t have alcoholic or caffeinated beverages or smoke. ?? Follow-up care Make an appointment with your healthcare provider within the next week, or as directed. If you had an ultrasound,??a radiologist??will??review??it.??You will be told of any new findings that may affect your care. ?? Call 911 Call 911 if you have: ??? Severe pain and very heavy bleeding ??? Severe lightheadedness, passing out, or fainting ??? Rapid heart rate ??? Trouble breathing ??? Confusion or trouble waking up ?? When to seek medical advice Call your healthcare provider right away??if any of the following occur: ??? Vaginal bleeding or pain that lasts for more than 3 days ??? Heavy bleeding. This means soaking 1 new pad an hour over 3 hours. ??? Fever of 100.4??F (38??C) or higher, or as directed by your healthcare provider ??? Pain in your lower belly (abdomen) that gets worse ??? Weakness or dizziness ??? Passage of anything that resembles tissue. This would be pink or grayish membrane or solid material. Save the tissue in a clean container and bring it to your healthcare provider. ?? Last Reviewed Date: 2022 ?? [id number] The [employer]. All rights reserved. This information is not intended as a substitute for professional medical care. Always follow your healthcare professional's instructions. ?? Patient Care team information Care Team Personnel Name: Jhoana Han RN Position: [facility] SN RN Member Role: Primary Care Nurse Name: Hal Grove NP Position: Reference Physician Member Role: PCP Address: [address] [place] [address] Telecom: Name: Edwar NAJERA, Rola Ramos Position: [facility] OB RN Member Role: Patient Care Provider Care Team Related Persons Name: SHAN ROSE Name: JAYDEN VIRGEN Insurance Providers [facility] Information #: 2 Payer: [facility] Member Number: [id number] Policy Number: NA Group Number: NA Health Plan Information #: 1 Payer: [facility] H[facility] Member Number: [id number] Policy Number: NA Group Number: [id number]
--- OUTSIDE RECORDS SUMMARY | 2024-12-15 08:35 | XMS_ITS | Encounter Summary ---
Author Organization [facility] Address [address] [place] [address] Care Team Providers Care Diabetic Educator Name Role Phone Hal Grove MD Primary Care Provider [phone] Encounter Details Date Type Department Care Team ([facility] st Contact Info) Description 01/28/2023 Scanned Document [facility] Neuroscience [facility] [address] [id number] Abdulaziz Clark MD 85 [facility] [address] [place] [id number] Social History Tobacco Use Types Packs/Day Years [...] on filedocumented in this encounter Care Teams Diabetic Educator Relationship Specialty Start Date End Date Hal Grove MD [address] [place] [address] PCP - General Family Medicine 10/15/22 documented as of this encounter
--- OUTSIDE RECORDS SUMMARY | 2024-12-15 08:35 | XMS_ITS | Clinical Summary ---
Author Organization [facility] Address [address] [place] [address] Care Team Providers Care Medical Device Sales Name Role Phone Hal Grove MD Primary Care Provider Allergies No known active allergies Medications Medication Sig Dispensed Refills Start Date End Date Status metoPROLOL SUCCINATE (TOPROL-XL) 25 MG 24 hr tablet Take 1 tablet (25 mg total) by mouth daily. 08/06/2022 Active methylPREDNISolone (MEDROL DOSEPAK) 4 MG tabletIndications:N yocasta pain,Numbness and tingling of left upper extremity follow package directions 21 tablet 01/23/2024 Active cyclobenzaprine (FLEXERIL) 10 MG tabletIndications:N yocasta pain,Numbness and tingling of left upper extremity Take 1 tablet (10 mg total) by mouth 3 times daily (every 8 hours) as needed for muscle spasms. 40 tablet 1 01/23/2024 Active Active Problems Problem Noted Date Diagnosed Date Cervical myofascial pain syndrome 05/21/2024 Left carpal tunnel syndrome 05/21/2024 Neck pain 01/23/2024 Numbness and tingling of left upper extremity Vertebral artery dissection 07/26/2022 Family History Medical History Relation Name Comments Diabetes Father Diabetes Mother Diabetes Sister Relation Name Status Comments Father Alive Mother Alive Sister Social History Tobacco Use Types Packs/Day Years Used Date Smoking Tobacco: Some Days Smokeless Tobacco: Never Tobacco Cessation:Ready to Q uit: Not Asked; Counseling Given: Not Answered Alcohol Use Standard Drinks/Week Comments Not Currently 2 (1 standard drink = 0.6 oz pur e alcohol) [facility] [place] [facility] - Occupational Stress Questionnaire Answer Date Recorded Do you feel stress - tense, restless, nervous, or anxious, or unable to sleep at night because your mind is troubled all the time - these days? Not at all 05/21/2024 Physical Activity Answer Date Recorded On average, how many days pe r week do you engage in moderate to strenuous exercise (like a brisk walk)? 0 days 05/21/2024 On average, how many minutes do you exercise per day at this level? 0 min 05/21/2024 Sex and Gender Information Value Date Recorded Sex Assigned at Female 01/20/2024 12:00 PM EDT Gender Identity Female 01/20/2024 12:00 PM EDT Sexual Orientation Heterosexual (straight) 01/19 12:00 PM EDT Last Filed Vital Signs Vital Sign Reading Time Taken Comments Blood Pressure 131/89 05/21/2024 8:07 AM EDT Pulse 93 05/21/2024 8:07 AM EDT Temperature 36.4 ??C (97.5 ??F) 07/26/2022 12:16 PM E DT Respiratory Rate 18 12/29/2023 11:00 AM EST Oxygen Saturation 98% 07/26/2022 12:16 PM EDT Inhaled Oxygen Concentration - - Weight 122 kg (268 lb) 12/29/2023 11:00 AM EST Height 165.1 cm (5' 5 ) 12/29/2023 11:00 AM EST Body Mass Index 44.6 12/29/2023 11:00 AM EST Plan of Treatment Health Maintenance Due Date Last Done Comments Hepatitis C Virus Screening 1993 HIV Screening 2006 DTaP/Tdap/Td Vaccines (1 - Tdap) 02/17/2012 Hepatitis B Vaccines (1 of 3 - 19+ 3-dose series) 02/17/2012 Pneumococcal Vaccine: Pediatric (0-5 Years) and At-Risk Patients (6 to 49 Years) (1 of 2 - PCV) 02/17/2012 Pap Smear (Ages 21-65) 2014 Influenza Vaccine 05/27/2024 11/21/2020, 10/29/2017, 09/08/2015 COVID-19 Vaccine ( - 2023-2 5 season) 2024 HPV Vaccines Aged Out No longer eligi ble based on patient's age to complete this topic Advance Directives * Full Code (Latest Code Status on File) Date Activated Date Inactivated Comments 07/26/2022 5:13 AM Care Teams Medical Device Sales Relationship Specialty Start Date End Date Hal Grove MD [address] [place] [address] PCP - General Family Medicine 10/15/22
--- OUTSIDE RECORDS SUMMARY | 2024-12-15 08:35 | XMS_ITS | Clinical Summary ---
Author Organization [facility] Address [address] [place] [address] Care Team Providers Care Iphone Developer Name Role Phone Unavailable Primary Care Provider Unavailabl e Social History Tobacco Use Types Packs/Day Years Used Date Smoking Tobacco: Never Assessed Comments Unknown Sex and Gender Information Value Date Recorded Sex Assigned at Not on file Legal Sex Female 8:16 PM EST Gender Identity Not on file Sexual Orientation Not on file Plan of Treatment Health Maintenance Due Date Last Done Comments DTaP,Tdap,and Td Vaccines (1 - Tdap) 02/17/2012 Hepatitis B Vaccines (1 of 3 - 19+ 3-dose series) 02/17/2012 Cervical Cancer Screening: P ap Smear 2014 COVID-19 Vaccine (2023-2 5 season) 2024 Influenza Vaccine (#1) 2024 HIB Vaccines Aged Out No longer eligi ble based on patient's age to complete this topic HPV Vaccines Aged Out No longer eligi ble based on patient's age to complete this topic Hepatitis A Vaccines Aged Out No long er eligible based on patient's age to complete this topic IPV Vaccines Aged Out No longer eligi ble based on patient's age to complete this topic MMR Vaccines Aged Out No longer eligi ble based on patient's age to complete this topic Meningococcal ACWY Vaccine Aged Out N o longer eligible based on patient's age to complete this topic Meningococcal B Vacine Aged Out No lo nger eligible based on patient's age to complete this topic Pneumococcal Vaccine: Pediat rics (0 to 5 Years) and At-Risk Patients (6 to 64 Years) Aged Out No longer eligible b ased on patient's age to complete this topic RSV Immunization Patients Un pallavi 20 months Aged Out No longer eligible b ased on patient's age to complete this topic Varicella Vaccines Aged Out No longer eligible based on patient's age to complete this topic
--- OUTSIDE RECORDS SUMMARY | 2024-12-15 08:35 | XMS_ITS | Encounter Summary ---
Author Organization [facility] Address [address] [place] [address] Care Team Providers Care Prop And Scenery Maker Name Role Phone Hal Grove MD Primary Care Provider Encounter Details Date Type Department Care Team ([facility] st Contact Info) Description 01/28/2023 Scanned Document [facility] Neuroscience [facility] [address] [address] Abdulaziz Clark MD 85 [facility] [address] [place] [id number] Social History Tobacco Use Types Packs/Day Years [...] on filedocumented in this encounter Care Teams Prop And Scenery Maker Relationship Specialty Start Date End Date Hal Grove MD [address] [place] [address] PCP - General Family Medicine 10/15/22 documented as of this encounter
--- OUTSIDE RECORDS SUMMARY | 2024-12-15 08:35 | XMS_ITS | Continuity of Care Document ---
Author Organization [facility] ter Address [address] [place] [address]- Care Team Providers Care Retail Salesworker Name Role Phone Perfecto GARCIA, Hal Goodman Primary Care Physician Encounter [facility] Date(s): 11/29/24 - 11/29/[address] [address]- Encounter Diagnosis Miscarriage at 8 to 28 weeks gestation(Final) - 11/29/24 Discharge Disposition: A-D/C Home Attending Physician: Hal Almonte MD Admitting Physician: Hal Almonte MD Referring Physician: Not on Staff, Referring MD Encounter Type: Disch ES Allergies, Adverse Reactions, Alerts Substance Criticality Severity Reaction Reaction Severity Status Shrimp Active Immunizations Given and Recorded Vaccine Date Status Refusal Reason influenza virus vaccine, inactivated 07/07/24 Franco rded influenza virus vaccine, inactivated 11/21/20 Franco rded influenza virus vaccine, inactivated 10/29/17 Franco rded influenza virus vaccine, inactivated 09/08/15 Franco rded hepatitis B adult vaccine 01/12/24 Recorded hepatitis B adult vaccine 08/08/23 Recorded hepatitis B adult vaccine 07/11/23 Recorded SARS-CoV-2 (COVID-19) mRNA BNT-162b2 vac 04/06/21 Recorded SARS-CoV-2 (COVID-19) mRNA BNT-162b2 vac 03/16/21 Recorded tetanus/diphtheria/pertussis, acel(Tdap) 01/26/18 Recorded pneumococcal 23-valent vaccine 11/02/15 Given Medications acetaminophen 325 mg oral capsule 2 capsule = 650 mg, By Mouth, Every 6 hours, PRN as needed for pain, For acute cause, 90 day supplynot indicated not to exceed 4000 mg/day, # 60 capsule, 0 Refills, Acute 02/18/25 3:00:00 PM EDT, 11/29/24 2:54:00 PM EST, Capsule, [facility]/pharmacy #[id number], Partial fill upon patient request if the prescription is for a schedule II opioid drug., 165, cm, 11/29/24 13:33:00 EST, Height, 123.7, kg, 11/29/24 13:35:00 EST, Dry Weight Start Date: 11/29/24 Stop Date: 02/18/25 Status: Ordered Quantity: 60.0 Unit: capsule Repeat number: 1 ibuprofen 600 mg oral tablet 600 mg, 1, tablet, By Mouth, Every 6 hours, PRN, For acute cause, 90 day supply not indicated not to exceed 3200 mg/day with food or milk, # 60 tablet, Refills 0, Tot. Refills 0, Acute 02/18/25 3:00:00 PM EDT, Pain , Mild, 11/29/24 2:54:00 PM EST, Route to Pharmacy Electronically, [facility]/pharmacy #[id number], Partial fill upon patient request if the prescription is for a schedule II opioid drug., 165, cm, 11/29/24 13:33:00 EST, Height, 123.7, kg, 11/29/24 13:35:00 EST, Dry Weight Start Date: 11/29/24 Stop Date: 02/18/25 Status: Ordered Quantity: 60.0 Unit: tablet Repeat number: 1 metFORMIN 500 mg oral tablet See Instructions, 3 tablets By Mouth Daily, 0 Refills, Maintenance, 07/14/24 7:41:00 AM EDT, Tablet,Partial fill upon patient request if the prescription is for a schedule II opioid drug. Start Date: 07/14/24 Status: Ordered Repeat number: 1 Methergine 0.2 mg oral tablet 1 tablet = 0.2 mg, By Mouth, 3 times a day, for 1 days, # 3 tablet, 0 Refills, Acute 11/30/24 2:54:00PM EST, 11/29/24 2:54:00 PM EST, Tablet, [facility] #[id number], Partial fill upon patient request if theprescription is for a schedule II opioid drug., 165, cm, 11/29/24 13:33:00 EST, Height, 123.7, kg, 11/29/24 13:35:00 EST, Dry Weight Start Date: 11/29/24 Stop Date: 11/30/24 Status: Ordered Quantity: 3.0 Unit: tablet Repeat number: 1 MiraLax oral powder for [...] the digestive system complicating , unspecified trimester MorPHINE Inj 4 mg, Injection, IV Push Slowly, Every 5 minutes for 3 doses/times, PRN for Pain , Moderate, and SBP greater than 100, Routine, 11/29/24 7:44:00 AM EST Start Date: 11/29/24 Stop Date: 11/30/24 Status: Discontinued Repeat number: 1 Prenatabs Rx oral tablet [...] Quantity: 90.0 Unit: tablet Repeat number: 4 Problem List Condition Confirmation Course Effective Dates Status H ealth Status Informant History of pulmonary embolism Confirmed Active History of supraventricular tachycardia Confirmed Active History of cardiac radiofrequency ablation Confirmed Active Class 3 obesity Confirmed Active Encounter for preconception consultation Confirmed Active Prediabetes Confirmed Active Severe obesity Confirmed Active Vital Signs Most recent to oldest [Reference Range]: 1 2 3 Oxygen Saturation [94-100 %] 95 % (11/29/24 8:48 AM) 99 % (11/29/24 8:03 AM) 98 % (11/29/24 7:50 AM) Pulse Rate [55-90 bpm] 118 bpm *H* (11/29/24 8:48 AM) 104 bpm *H* (11/29/24 8:03 AM) 114 bpm *H* (11/29/24 7:50 AM) Blood Pressure [90-138/55-84 mm Hg] 148/85mm Hg *H* (11/29/24 8:48 AM) 145/85mm Hg *H* (11/29/24 8:03 AM) 155/86mm Hg *H* (11/29/24 7:50 AM) Respiratory Rate [16-30 br/min] 20 br/min (11/29/24 8:48 AM) 20 br/min (11/29/24 8:48 AM) 22 br/min (11/29/24 8:03 AM) Temperature [96.8-100.4 DegF] 98.1 DegF (11/29/24 8:03 AM) 98.6 DegF (11/29/24 7:50 AM) Mode of Delivery (Oxygen) Room air (11/29/24 8:48 AM) Room air (11/29/24 8:03 AM) Room air (11/29/24 7:50 AM) Blood pressure sites Arm, left (11/29/24 8:48 AM) Arm, left (11/29/24 8:03 AM) Arm, left (11/29/24 7:50 AM) Temperature Route Oral (11/29/24 8:03 AM) Oral (11/29/24 7:50 AM) Social History Social History Type Response Smoking Status Never (less than 100 in lifetime) entered on: 10/12/24 Sex Sex Representation Female (finding) Note * Joshua Eddy DO: PERFORM Event Display: Patient Education Leaflets Authored Date: [id number] Incomplete Miscarriage ?? [id number] Incomplete Miscarriage Completed miscarriage means that the embryo or fetus, placenta, and other tissues are passed out ofthe uterus with bleeding. Incomplete miscarriage means only some of the tissues pass out of the uterus. Some tissue stays in the uterus. You may have heavy vaginal bleeding. It???s important to know that you did not cause this to happen. Miscarriage is very common. About 1or 2 out of every [address] Miscarriage usually takes place in the first 10 weeks after conception. It may happen before you know you are . It may happen for many reasons. Often the cause is not known. Miscarriage is not your fault. It didn???t happen because you did something wrong. Sex or exercise does not cause a miscarriage. These activities are safe unless your healthcare provider tells you tostop. Even a minor fall won???t cause a miscarriage. It appears that your miscarriage is not yet complete. This means that some tissue from the is still in your uterus. You will have more cramping and bleeding for the next few days as the tissue leaves your uterus.??In most cases,??all of the tissue will pass out by itself. In some cases, tissue remains. If so, it must be removed. This is done to stop bleeding and prevent infection. After you have recovered, you should be able to get again. Before trying, talk with your healthcare provider. Home care After you go home: ??? You may not feel well for a few days. Your body is going through changes. You will have mood swings. ??? You may have some cramping and bleeding, but it shouldn???t be severe. ??? You may pass tissue. It may appear as a 1-inch or larger piece of santamaria or pink tissue. ??? When you are ready, you can start to go back to your normal routine. Until the bleeding stops fully, to prevent infection: ??? Don???t have sex until your healthcare provider says it???s OK. ??? Don???t use tampons. Use pads instead. ??? Don???t use douche. Having a miscarriage is stressful and upsetting. It's natural to feel sadness or grief. Partners grieve, too. It may help to talk about your feelings with family, friends, a counselor, or teacher advisor. ?? Follow-up care Follow up with your healthcare provider as advised. If you had an ultrasound, a radiologist will look at it. You will be told of any results that may affect your care. If tissue has not passed from your vagina in the next 5 days, call your healthcare provider. You will need another exam. Your provider might need to take out the tissue with surgery. This is toprevent infection in your uterus. Or you may be given medicine to take at home. This will help the rest of the tissue come out of your body. ?? Call 911 Call 911 if you have any of these: ??? Severe pain and very heavy bleeding ??? Severe lightheadedness, passing out, or fainting ??? Fast heart rate ??? Trouble breathing ??? Confusion ??? Trouble waking up ?? When to get medical care Call your healthcare provider right away if you have any of these: ??? Heavy bleeding that soaks 1 pad an hour over 3 hours ??? Fluid from your vagina that smells bad? Fever of 100.4??F (38??C) or higher ??? Pain in your lower belly (abdomen) that gets worse ??? Weakness or dizziness ?? Last Reviewed Date: 2024 ?? [id number] [employer]. All rights reserved. This information is not intended as a substitute for professional medical care. Always follow your healthcare professional's instructions. ?? Patient Care team information Care Team Personnel Name: Jhoana Han RN Position: [facility] RN Member Role: Primary Care Nurse Name: Hal Grove NP Position: Reference Physician Member Role: PCP Address: [address] [place] [address] Telecom: Care Team Related Persons Name: SHAN SCOTT Name: JAYDEN VIRGEN Insurance Providers Guarantor name: [employer] Health Plan Information #: 1 Payer: [employer] Member Number: [id number] Policy Number: NA Group Number: [id number] Health Plan Information #: 2 Payer: [facility] Member Number: [id number] Policy Number: NA Group Number: NA
--- OUTSIDE RECORDS SUMMARY | 2024-12-15 08:35 | XMS_ITS | Clinical Summary ---
Author Organization [facility] Address [address] [place] [address] [address] [place] [address] Care Team Providers Care [place]chill Administrator Name Role Phone Unavailable Primary Care Provider Unavailabl e Immunizations Name Administration Dates Next Due Hep B, adult 01/12/2024,08/08/2023,07/11/2023 Influenza injectable quadriv alent preservative free 11/21/2020,10/29/2017 Influenza, IIV3, injectable 09/08/2015 Influenza, seasonal, injecta ble, preservative free 07/07/2024 Tdap 01/26/2018 Social History Tobacco Use Types Packs/Day Years Used Date Smoking Tobacco: Never Assessed Comments Unknown Sex and Gender Information Value Date Recorded Sex Assigned at Female 08/26/2022 10:28 AM EDT Legal Sex Female 10:28 AM EDT Gender Identity Female 07/11/2023 1:40 PM EDT Sexual Orientation Straight 07/11/2023 1: 40 PM EDT Plan of Treatment Health Maintenance Due Date Last Done Comments Depression Screening 1993 HIV Screening 1993 Lipid Panel 1993 SDOH Screening 1993 Alcohol/Substance Use Screening 2005 Tobacco Screening 2005 Family Planning (PISQ) 02/17/2008 Hepatitis C Screening 2011 Pap Smear 2014 Cervical Cancer Screening 2023 HPV/Cotest 2023 COVID-19 Vaccine ( season) 2024 04/06/2021, 03/16/2021 DTaP/Tdap/Td Vaccines (2 - Td or Tdap) 01/27/2028 01/26/2018 Zoster Vaccines (1 of 2) 2043 RSV Patients and Patients Aged 60 years or older (1 - 1-dose 75+ series) 02/17/2068 Pneumococcal Vaccine: Pediatrics (0 to 5 Years) and At-Risk Patients (6 to 49) Years) Aged Out 11/02/2015 No longer eligible based on patient's age to complete this topic Hepatitis B Vaccines Completed 01/12/2024, 08/08/2023, 07/11/2023 Influenza Vaccine Completed 07/07/2024, , 10/29/2017, Additional history exists HIB Vaccines Aged Out No longer eligi [...] patient's age to complete this topic Meningococcal Vaccine Aged Out No christi christen eligible based on patient's age to complete this topic RSV under 20 months Aged Out No longe r eligible based on patient's age to complete this topic Rotavirus Vaccines Aged Out No longer eligible based on patient's age to complete this topic Insurance
--- OUTSIDE RECORDS SUMMARY | 2024-12-15 08:35 | XMS_ITS | Continuity of Care Document ---
Author Organization [facility] ter Address [address] [place] [id number]- Care Team Providers Care Control Systems Developer Name Role Phone Perfecto GARCIA, Hal Goodman Primary Care Physician [place] [facility] [place]): [place]26[place] - 11/26/[address] [address]- Discharge Disposition: A-D/C Home Attending Physician: Will Jeffers MD Admitting Physician: Will Jeffers MD Referring Physician: Will Jeffers MD Encounter Type: One Time OP Allergies, Adverse Reactions, Alerts Substance Criticality Severity [...] Most recent to oldest [Reference Range]: 1 Height 165 cm (11/26/24 7:56 AM) Oxygen Saturation [94-100 %] 99 % (11/26/24 8:19 AM) Blood Pressure [90-138/55-84 mm Hg] 142/ 76mm Hg *H* (11/26/24 8:19 AM) Respiratory Rate [16-30 br/min] 18 br/mi n (11/26/24 8:19 AM) Temperature [96.8-100.4 DegF] 97.3 DegF (11/26/24 7:55 AM) Mode of Delivery (Oxygen) Room air (11/26/24 8:19 AM) Blood pressure sites Arm, left (11/26/24 8:19 AM) Temperature Route Oral (11/26/24 7:55 AM) Dry Weight 123.7 kg (11/26/24 7:55 AM) Dry Weight Obtained Via Standing scale (11/26/24 7:55 AM) Social History Social History Type Response Smoking Status Never (less than 100 in lifetime) entered on: 10/12/24 Sex Sex Representation Female (finding) Note * Matilde Oliva RN: PERFORM Event Display: Discharge/Transfer Note Hospital Authored Date: [id number] Nursing Discharge Note Entered On: 11/26/2024 9:15 EST Performed On: 11/26/2024 9:14 EST by Matilde Oliva RN Nursing Discharge Note 2 Discharge Time : 11/26/2024 9:14 EST Discharge Level of Care at Discharge : Home/[facility]/Foster Care Patient Left Unit Via : Ambulatory Patient Accompanied Off Unit with : Other: self DC Instructions Provided & Signed by Pt : Yes Patient Understands D/C Instructions : Yes Patient Instructions Discharge Signed : Yes Did Pt have Specialty Bed or Wound Vac : No Matilde Oliva RN - 11/26/2024 9:14 EST * Matilde Oliva RN: PERFORM Event Display: Patient Education/Instruction Authored Date: [id number] Inpatient Adult Discharge Instructions. [address] [address] Name: IRISH SAAB : 1995?? Visit: 11/26/2024 07:42?? Current Date: 11/26/2024 09:05 ?? Account: [id number]?? Inpatient Adult Discharge Instructions We would like [...] and their families. Surveys are administered by [employer] ?? If further treatment with your primary care physician or another doctor is recommended, it is important for you to keep the appointment. Call your primary care physician or return to the Emergency Department immediately if your condition worsens, fails to improve, or new symptoms develop. If you need to find a doctor, you can call [facility] for a referral at [phone] or toll free at [phone]) or log in to [email or web address].. ?? [facility], in keeping with [facility] guidance, no longer requires face masks for [...] a health care melinda of your choosing. [employer] is a website that allows you to securely view your medical information including your hospital discharge summary, office visit summaries, medications and follow-up visits. You can also request appointments, renew medications, and request access to your medical information using a health care melinda of your choosing, or just ask a question. You can enroll at [email or web address] or register during your next office visit. You have been discharged from [facility], Patient Care Unit: [id number]??. If you have any questions regarding these instructions, including results of studies pending, afteryou leave, please call us and we will be happy to assist you 19/05. [facility] Your Care Team Attending Physician Will Jeffers MD?? Consulting Providers Will Jeffers MD?? Tests Performed Below is a partial list of the tests performed during your hospitalization. You may have had other tests and procedures not included in this list. Please discuss all test results with your provider. No tests performed during this visit.?? Primary Care Provider Perfecto GARCIA , Hal Goodman? Advance Directive Health Care Proxy on File No Discharge Vitals Temperature: 97.3 DegF Height: 165 cm Studies Pending All studies ordered during this hospital stay have been completed unless listed below. Please discuss all pending results with your provider listed above in these instructions. ?? No incomplete studies found?? What to do next Instructions From Your Doctor ?? Orders?? Scheduled Follow-Up Appointments Friday 3:00 PM EST ?? With: Leslie Hernandez MD Where: [facility] [address] [place] [id number]- Status: Pending 2024 4:20 PM EST ?? With: Cass Mauro MDh Where: [facility] Mammography Supervisor [address] [place] [id number]- Status: Pending 2024 4:20 PM EDT ?? With: Nevaeh Dutta DO Where: [address] [address]- Status: Pending Friday 4:20 PM EDT ?? Where: [facility] Mammography Supervisor [address] [place] [id number]- Status: Pending 2024 4:20 PM EDT ?? With: Chris Kirk MDcharlotte Where: [address] [address]- Status: Pending You Need to Schedule the Following Appointments Follow Up with??[facility] [phone] Why: keep next scheduled appointment Discharge Medications IRISH SAAB :1995 Visit Date:11/26/2024 Medications: Please continue your medications until treatment is completed or stopped by your provider. Medications not listed below should be discontinued. Discuss any questions related to medications with your provider. What How Much When Why Instructions Next Dose Unchanged Aspirin (aspirin 81 mg oral delayed releasetablet) 2 tab(s) Oral Daily Unchanged Metformin (metFORMIN 500 mg oral tablet) See instructions 3 tablets By Mouth Daily ?? Unchanged Multivitamin, (Prenatabs Rx oral tablet) 1 tab(s) Oral Daily Unchanged Polyethylene Glycol 3350 (MiraLax oral powder for reconstitution) 17 gram Oral Daily Constipation during dissolve in 4 to 8 oz of beverage ?? Prescription Given During Visit No new medications prescribed at time of discharge.?? Laboratory Results Below is a partial list of the most recent Laboratory test results done prior to this discharge. You may have had other tests and procedures not included in this list. Please discuss all test resultswith your provider. Allergies (NKA means No Known Allergies) Shrimp Problems Active Problems??(8) Class 3 obesity?? Encounter for preconception consultation?? History of cardiac radiofrequency ablation?? History of pulmonary embolism?? History of supraventricular tachycardia?? Prediabetes? Severe obesity?? Education Materials Below is the list of Educational Leaflet Providered with your Discharge Instructions. WebMD Ignite Patient Education - Vaginal Bleeding During ?? WebUltimate Shopper Ignite Patient Education - Adapting to : Second Trimester?? Valuables and Belongings I fully understand and agree that [facility] accepts no responsibility for all my personal [...] to send valuables and belongings home. ? Common Emergency Awareness Tips IS IT [...] are strongly encouraged to quit. Please call [facility] at [phone] or [phone]-[facility] ([phone]) or log in to [email or web address] for referrals to smoking cessation programs. ?? 414 Suicide & Crisis Lifeline is available 19/05 if you or someone you know needs to find a reason to keep living. By calling 879 you'll be connected to a skilled, trained counselor at a crisis center in your area. INPATIENT DISCHARGE INSTRUCTIONS SIGNATURE PAGE SAABIRISH LANIER Location:[facility] Registration Date and Time:11/26/2024 07:42 EST Primary Care Physician: Perfecto GARCIA , Hal Goodman, Attending Physician: Zeyad GROVER, Will Bermeo, I IRISH SAAB, have received the above patient education materials/instructions and have verbalized understanding. If ambulance or transport services are being used I further acknowledge being given a choice of service. ?? If you need to contact me, please call me at this number: . Patient/Handle Bender Name: Patient/Handle Bender Signature: Relationship to Patient: Witness Name/Signature: Date: * Matilde Oliva RN: PERFORM Event Display: Patient Education Leaflets Authored Date: [id number] Vaginal Bleeding During ?? [address] Vaginal Bleeding During You may have vaginal bleeding during for many reasons. In some cases, it???s not something to worry about. But bleeding can be a symptom of something serious, especially if it occurs later in your . Here is a look at common causes of vaginal bleeding during . Always callyour healthcare provider if you have bleeding at any stage of . Bleeding in early About 2 to 3 out of 10 women will have vaginal bleeding in the first 20 weeks of . It doesnot always mean there is a serious problem. But call your healthcare provider if you have bleeding at any time during your . Common problems Common causes of vaginal bleeding during early include: ??? An infection. An infection in your pelvis or urinary tract can cause bleeding and some abnormaldischarge. ??? Cervical changes. hormones can make the cervix softer and more likely to bleed. A noncancer growth (polyp) may also form and may cause bleeding. ??? Having sex. You may have some bleeding after sex if your cervix is sore and sensitive. See your healthcare provider before having sex again. ??? Implantation bleeding. Implantation is when the fertilized egg attaches to the uterine lining, about 6 to 12 days after conception. You may have some light spotting or bleeding just before you would expect your next period. This is often mistaken for a light period. But the bleeding is often a program support assistant color, and not heavy. Serious problems Serious problems that can cause vaginal bleeding in early include: Early loss (miscarriage) This is a loss that occurs before 20 weeks of . About 1 out of [address] Symptoms can include bleeding and cramping. But half of all women who have a miscarriagedon???t have any bleeding. Some tissue may still be in your uterus. It may pass naturallyfrom your vagina. Or you can choose to have it removed with medicine or surgery. Ectopic This is when the fertilized egg implants outside of the uterus. In most cases, it implants in one of the fallopian tubes. This is very serious and must be treated. If the fallopian tube bursts (ruptures), there may be internal bleeding. This may lead to fainting, shock, or even . Symptoms of ectopic include: ??? Vaginal bleeding (sometimes this is the only symptom) ??? Belly, pelvic, or shoulder pain Molar In rare cases, early bleeding is caused by a molar . This occurs when you have an abnormaltissue growth, not an embryo. Symptoms include: ??? Vaginal bleeding ??? No heartbeat ??? Ultrasound shows small round clusters in the uterus Subchorionic bleeding This is caused by a blood clot (subchorionic hematoma) that forms when blood collects between the uterine lining and the placenta. In most cases, this goes away on its own with no problems. But in some cases, it may cause the placenta to separate from the uterine wall. And it may be linked to a higher risk of labor and miscarriage. There is no treatment for these blood clots. But your healthcare provider may want you to have regular follow-up exams. You may also be advised not to do anystrenuous activity or heavy lifting. ?? Bleeding later in Vaginal bleeding in the second and third trimesters is often a sign of a more serious problem. If you have any bleeding later in your , call your healthcare provider right away. Common problems that can cause light bleeding later in are cervical growths or inflammation. Heavy bleeding later in is serious. It may mean there is a problem with the placenta. Placental abruption This is when the placenta separates from the uterine wall too soon. Symptoms include bleeding and back or belly pain. If this is not found early, it can cause serious problems. You may lose a lot of blood, and your baby may not get enough oxygen. Placenta previa This condition is most common in the third trimester. It occurs when the placenta is attached to the lower part of the uterus, instead of the upper part. This can partly or fully block the cervix. Bleeding may happen suddenly without any pain. In some cases placenta previa goes away on its own. Butif that doesn???t happen, you may need to have an early . Placenta accreta This is a condition where part or all of the placenta stays attached to the uterine wall. It can cause vaginal bleeding in the third trimester. And it can cause life-threatening blood loss during delivery. In some cases, placenta accreta is found during a routine ultrasound. But it may not be founduntil after delivery. If this condition is found before you deliver, you will likely have an early . In many cases the uterus is also removed (hysterectomy) right after delivery. This is done to prevent severe blood loss. labor Vaginal bleeding that occurs later in may also mean you are going into labor. Bleeding that occurs before 37 weeks may be a sign of labor. You may be given medicine to delay contractions. But if labor can???t be stopped, or there are other specific concerns, you may have to deliver your baby. Symptoms of labor also include: ??? Vaginal discharge (may be bloody, watery, or a mucus) ??? Feeling of pressure in pelvis or lower belly ??? Low back pain ??? Cramps(may occur with diarrhea) ??? Contractions ??? Your water breaks (ruptured membranes) ?? If you have abnormal bleeding during ??? Call your healthcare provider right away ??? Wear a pad or panty liner, so you can tell how much you are bleeding ??? Keep a record of your bleeding. Is it heavy or light? Is it a red or brown color? Is it smooth or are there any clots? Don???tuse a tampon or have sex when you are bleeding ?? When to call your healthcare provider Call your healthcare provider right away if you have vaginal bleeding at any stage of . ?? Last Reviewed Date: 2022 ?? 5724-5268 [employer]. All rights reserved. This information is not intended as a substitute for professional medical care. Always follow your healthcare professional's instructions. ?? * Matilde Oliva RN: PERFORM Event Display: Patient Education Leaflets Authored Date: [id number] Adapting to : Second Trimester ?? 800 Adapting to : Second Trimester Keep up the healthy habits you started in your first trimester. You might be a little more tired than normal. So plan your day wisely. Look at the tips below and choose the ones that suit your lifestyle. If you work If you can, adjust your work with your employer to fit your needs. Try these tips: ??? If you standfor long periods, find ways to do some tasks while sitting. Also, try to stand with one foot resting on a low stool or ledge. Shift your weight from foot to foot often. Wear low-heeled shoes. ??? If you sit, keep your knees level with your hips. Rest your feet on a firm surface. Sit tall with support for your lower back. ??? If you work long hours, ask about adjusting your schedule. Try taking shorter breaks more often. When you travel The second trimester may be the best time for any travel. Talk to your healthcare provider about any special plans you may need to make. Always: ??? Wear a seat belt. Fasten the lap part under your belly. Wear the shoulder part also. ??? Take breaks often during long trips by car or plane. Move around to stretch your legs. ??? Drink plenty of fluids on flights. The air in plane cabins is very dry. ??? Stay out of hot climates or high altitudes if you are not used to them. ??? Stay away from places where the food and water might make you sick. ??? Make sure you are up-to-date on all vaccines, including the flu vaccine. This is especially important when traveling overseas. Taking time to relax Find time to rest and relax at work or at home: ??? Take short time-outs daily. Do relaxation exercises. ??? Breathe deeply during stressful times.??? Try not to take on too much. Plan tasks for times when you have the most energy. ??? Take naps when you can. Or just sit and relax. ??? After week 16, don't lie on your back for more than a few minutes. Instead, lie on your side. Switch sides often. Having sex Unless your healthcare provider tells you otherwise, there is no reason to stop having sex now. Blood supply increases to the pelvic area in the second trimester. Because of this, sex might be more enjoyable. Try different positions and see what???s best. Also talk with your partner about any changes in desire. Spotting may happen after sex. Let your healthcare provider know if there is heavy bleeding. Keeping your environment safe You can still clean your house and use scented products. Just take some simple precautions: ??? Wear gloves when using cleaning fluids. ??? Open windows to let in fresh air. Use a fan if you paint. ??? Stay away from secondhand smoke. ??? Don???t breathe fumes from nail turkmen, hair spray, cleansers, or other chemicals. How daily issues affect your health Many things in your daily life impact your health. This can include transportation, money problems,housing, access to food, and children's minister. If you can???t get to medical appointments, you may not receive the care you need. When money is tight, it may be difficult to pay for medicines. And living far from a grocery store can make it hard to buy healthy food. If you have concerns in any of these or other areas, talk with your healthcare team. They may know of local resources to assist you. Or they may have a staff person who can help. ?? Patient Care team information Care Team Personnel Name: Jhoana Han RN Position: June HENSON RN Member Role: Primary Care Nurse Name: Hal Grove NP Position: Reference Physician Member Role: PCP Address: [address] [place] [address] Telecom: Care Team Related Persons Name: SHAN SCOTT Name: JAYDEN VIRGEN Insurance Providers Guarantor name: MINETRESSA KATIANA [employer] Plan Information #: 1 Payer: [employer] Member Number: [id number] Policy Number: NA Group Number: NA Health Plan Information #: 2 Payer: [facility] [employer] H[employer] Member Number: [id number] Policy Number: NA Group Number: [id number]
--- OUTSIDE RECORDS SUMMARY | 2024-12-15 08:35 | XMS_ITS | Continuity of Care Document ---
Author Organization [facility] ter Address [address] [place] [id number]- Care Team Providers Care Farm Management Adviser Name Role Phone Perfecto GARCIA, Hal Goodman Primary Care Physician Encounter [facility] Date(s): 11/20/24 - 11/20/[address] [address] Discharge Disposition: A-D/C Home Attending Physician: Rafa [...] recent to oldest [Reference Range]: 1 2 Height 165 cm (11/20/24 11:15 AM) Oxygen Saturation [94-100 %] 100 % (11/20/24 11:14 AM) Pulse Rate [55-90 bpm] 105 bpm *H* (11/20/24 11:14 AM) Blood Pressure [90-138/55-84 mm Hg] 136/ 83mm Hg (11/20/24 11:42 AM) 152/86mm Hg *H* (11/20/24 11:14 AM) Respiratory Rate [16-30 br/min] 17 br/mi n (11/20/24 11:14 AM) Temperature [96.8-100.4 DegF] 97.8 DegF (11/20/24 11:14 AM) Mode of Delivery (Oxygen) Room air (11/20/24 11:14 AM) Blood pressure sites Arm, left (11/20/24 11:42 AM) Arm, right (11/20/24 11:14 AM) Temperature Route Oral (11/20/24 11:14 AM) Dry Weight 122.9 kg (11/20/24 11:14 AM) Dry Weight Obtained Via Standing scale (11/20/24 11:14 AM) Social History Social History Type Response Smoking Status Never (less than 100 in lifetime) entered on: 10/12/24 Sex Sex Representation Female (finding) Note * Rosie Rocha RN: PERFORM Event Display: Discharge/Transfer Note Hospital Authored Date: [id number] Nursing Discharge Note Entered On: 11/20/2024 13:10 EST Performed On: 11/20/2024 13:09 EST by Rosie Rocha RN Nursing Discharge Note 2 Discharge Time : 11/20/2024 13:10 EST Discharge Level of Care at Discharge : Home/Usp/Foster Care Patient Left Unit Via : Ambulatory Patient Accompanied Off Unit with : Parent DC Instructions Provided & Signed by Pt : Yes Patient Understands D/C Instructions : Yes Patient Instructions Discharge Signed : Yes Did Pt have Specialty Bed or Wound Vac : No Rosie Rocha RN - 11/20/2024 13:09 EST * Rosie Rocha RN: PERFORM Event Display: Patient Education/Instruction Authored Date: [id number] Inpatient Adult Discharge Instructions. [address] [address] Name: IRISH SAAB : 1995?? Visit: 11/20/2024 11:00?? Current Date: 11/20/2024 12:44 ?? Account: [id number]?? Inpatient Adult Discharge Instructions We would like [...] and their families. Surveys are administered by [employer] ?? If further treatment with your primary care physician or another doctor is recommended, it is important for you to keep the appointment. Call your primary care physician or return to the Emergency Department immediately if your condition worsens, fails to improve, or new symptoms develop. If you need to find a doctor, you can call [facility] for a referral at [phone] or toll free at [phone]) or log in to [email or web address]... ?? [facility], in keeping with [facility] guidance, no longer requires face masks for [...] a health care melinda of your choosing. [employer] is a website that allows you to securely view your medical information including your hospital discharge summary, office visit summaries, medications and follow-up visits. You can also request appointments, renew medications, and request access to your medical information using a health care melinda of your choosing, or just ask a question. You can enroll at [email or web address] or register during your next office visit. You have been discharged from [facility], Patient Care Unit: WETU1??. If you have any questions regarding these instructions, including results of studies pending, afteryou leave, please call us and we will be happy to assist you 19/05. [facility] Your Care Team Attending Physician Candida GROVER, Rafa Wynne?? Consulting Providers Candida GROVER, Rafa Wynne?? Tests Performed Below is a partial list of the tests performed during your hospitalization. You may have had other tests and procedures not included in this list. Please discuss all test results with your provider. Complete Urinalysis Complete Urinalysis?? Urine Culture?? Primary Care Provider Perfecto GARCIA , Hal Goodman? Advance Directive Health Care Proxy on File No Discharge Vitals Temperature: 97.8 DegF Height: 165 cm Pulse Rate:??105 bpm??High ?? Respiratory Rate: 17 br/min ?? Systolic Blood Pressure: 136 mm Hg ?? Diastolic Blood Pressure: 83 mm Hg ?? Oxygen Saturation: 100 % ?? Studies Pending All studies ordered during this hospital stay have been completed unless listed below. Please discuss all pending results with your provider listed above in these instructions. ?? Urine Culture?? What to do next Instructions From Your Doctor ?? Orders?? Scheduled Follow-Up Appointments 2024 4:20 PM EST ?? With: Nj GROVER, Shaw Where: [facility] [employer] [address] [place] [address]- Status: Pending 2024 4:20 PM EDT ?? With: Nevaeh Dutta DO Where: [address] [address]- Status: Pending Friday 4:20 PM EDT ?? Where: [facility] - [address] [address]- Status: Pending 2024 4:20 PM EDT ?? With: Tate Kirk MD Where: [facility] [employer] [address] [place] [address]- Status: Pending You Need to Schedule the Following Appointments Follow Up with??Paulette Gee MD Why: Keep your scheduled appointments, call the office with any concerns or??return to [facility] Where: [facility], [address] [place] [id number]- Discharge Medications IRISH SAAB :1995 Visit Date:11/20/2024 Medications: Please continue your medications until treatment [...] in 4 to 8 oz of beverage ? What How Much When Comments Stop Taking Progesterone 200 Milligram Vaginally Twice a day Prescription Given During Visit No new medications prescribed at time of discharge.?? Laboratory Results Below is a partial list of the most recent Laboratory test results done prior to this discharge. You may have had other tests and procedures not included in this list. Please discuss all test resultswith your provider. Complete Urinalysis (11/20/2024) ???Appear/Color, Urine - YELLOW???Specific [place], Urine - 1.025???pH, Urine - 7.0???Albumin, Urine - TRACE???Glucose, Urine - NEGATIVE???Ketones, Urine - NEGATIVE???Bilirubin, Urine - NEGATIVE???Hemoglobin, Urine - 2+???Nitrite, Urine - NEGATIVE???Leukocyte, Urine - NEGATIVE???Urobilinogen - NORMAL???WBC's, Urine - 1 /HPF???RBC's, Urine - 5 /HPF???Squamous Epith - 10 /HPF You will be contacted within 72 hours with your results. Allergies (NKA means No Known Allergies) NKA Problems Active Problems??(8) Class 3 obesity?? Encounter for preconception consultation?? History of cardiac radiofrequency ablation?? History of pulmonary embolism?? History of supraventricular tachycardia?? Prediabetes? Severe obesity?? Education Materials Below is the list of Educational Leaflet Providered with your Discharge Instructions. [employer] Patient Education - Adapting to : Second Trimester?? [employer] Patient Education - Comfort Tips During ?? Valuables and Belongings I fully understand and agree that [facility] accepts no responsibility for all my personal [...] Status?? Pulmonary Rehab Discharge Status?? Respiratory Rate: 17 br/min ? Common Emergency Awareness Tips IS [...] are strongly encouraged to quit. Please call [email or web address] at [phone] or [phone] ([phone]) or log in to [email or web address] for referrals to smoking cessation programs. ?? 804 Suicide & Crisis Lifeline is available 19/05 if you or someone you know needs to find a reason to keep living. By calling 730 you'll be connected to a skilled, trained counselor at a crisis center in your area. INPATIENT DISCHARGE INSTRUCTIONS SIGNATURE PAGE IRISH SAAB Location:[facility] Registration Date and Time:11/20/2024 11:00 EST Primary Care Physician: Hal Grove NP, Attending Physician: Rafa Tirado MD, I KATIANA KGZHAOTRESSA, have received the above patient education materials/instructions and have verbalized understanding. If ambulance or transport services are being used I further acknowledge being given a choice of service. ?? If you need to contact me, please call me at this number: . Patient/Caterpillar Operator Name: Patient/Caterpillar Operator Signature: Relationship to Patient: Witness Name/Signature: Date: * Rosie Rocha RN: PERFORM Event Display: Patient Education Leaflets Authored Date: [id number] Adapting to : Second Trimester ?? [address] Adapting to : Second Trimester Keep up [...] schedule. Try taking shorter breaks more often. ?? When you travel The second trimester may [...] This is especially important when traveling overseas. ?? Taking time to relax Find time to [...] lie on your side. Switch sides often. ?? Having sex Unless your healthcare provider tells [...] provider know if there is heavy bleeding. ?? Keeping your environment safe You can still clean your house and use scented products. Just take some simple precautions: ??? Wear gloves when using cleaning fluids. ??? Open windows to let in fresh air. Use a fan if you paint. ??? Stay away from secondhand smoke. ??? Don???t breathe fumes from nail kinyarwanda, hair spray, cleansers, or other chemicals. ?? How daily issues affect your health Many things in your daily life impact your health. This can include transportation, money problems,housing, access to food, and child day care teacher. If you can???t get to medical appointments, [...] a staff person who can help. ?? Last Reviewed Date: 2023 ?? 3331-1453 [employer]. All rights reserved. This information is not intended as a substitute for professional medical care. Always follow your healthcare professional's instructions. ?? * Josefina NAJERA, Rosie: PERFORM Event Display: Patient Education Leaflets Authored Date: [id number] Comfort Tips During ?? 756 Comfort Tips During can bring discomfort of different kinds. Below are tips for ways to feel better.??Talk with your??healthcare provider before using pain-relieving medicine at any time during your . First trimester tips Easing nausea ??? Get up slowly. Eat a few unsalted crackers before you get out of bed. ??? Stay away from smellsthat bother you. ??? Eat small,??bland, low-fat, high- protein meals at frequent intervals. ??? Sip on water, weak??tea, or clear soft drinks, like chip kiya.??Eat ice chips. ??? Try taking vitamin B6. Coping with fatigue ??? Take catnaps when you can. ??? Get regular exercise. ??? Accept help from others. ??? Practice good sleep habits, like going to bed and getting up at the same time each day. Use your bed only forsleep and sex. Calming mood swings ??? Talk about your feelings with others, including other mothers. ??? Limit sugar, chocolate, and caffeine. ??? Eat a healthy diet. Don???t skip meals. ??? Get regular exercise. Soothing headaches ??? Get fresh air and exercise. ??? Relax and get enough rest. ??? Check with your healthcare provider before taking any pain medicines. Second trimester tips ??? To limit ankle swelling, sit with your feet raised or wear support hose. ??? If you have pain in your groin and stomach??(round ligament pain), don't make sudden twisting movements with your body. ??? For leg cramps, flexing your foot often brings immediate relief. Also try massaging your calf in long, downward strokes, or stretching your legs before going to bed. Get enough exercise and wear shoes with flexible soles. Eat foods rich in calcium. Third trimester tips Reducing heartburn ??? Eat small, light meals throughout the day rather than 3 large ones. ??? Sleep with your upper body raised??6??inches. Don???t lie down until??2??hours after you eat. ??? Don't eat greasy, fried, or spicy foods. ??? Don't have citrus fruits or juices. Treating constipation ??? Eat foods high in fiber, such as whole-grain foods, and fresh fruit and vegetables. ??? Drink plenty of water. ??? Get regular exercise. ??? Ask about your healthcare provider about medicines that have docusate or psyllium. Taking care of your breasts ??? Don't use harsh soaps or alcohol, which can make your skin too dry. ??? Wear nursing bras. Theyprovide more support than regular bras and can be used after if you breastfeed. Getting a good night???s sleep ??? Take a warm shower before bed. ??? Sleep on a firm mattress. ???Lie on your side with one leg crossed over the other. ??? Use pillows to support your arms, legs, and belly. ?? Patient Care team information Care Team Personnel Name: Jhoana Han RN Position: [facility] RN Member Role: Primary Care Nurse Name: Hal Grove NP Position: Reference Physician Member Role: PCP Address: [address] [place] [address] Telecom: Name: Rosie Rocha RN Position: [facility] RN Member Role: Patient Care Provider Care Team Related Persons Name: SHAN SCOTT Name: JAYDEN VIRGEN Insurance Providers Guarantor [facility] Plan Information #: 2 Payer: [facility] Member Number: [id number] Policy Number: NA Group Number: NA Health Plan Information #: 1 Payer: [employer] [employer] Member Number: [id number] Policy Number: NA Group Number: [id number]
--- OUTSIDE RECORDS SUMMARY | 2024-12-15 08:35 | XMS_ITS | Continuity of Care Document ---
Author Organization [facility] ter Address [address] [place] [address]- Care Team Providers Care Senior Maintenance Mechanic Name Role Phone Perfecto GARCIA, Hal Goodman Primary Care Physician [phone] Encounter [facility] [place] Date(s): 11/27/24 - 11/27/[address] [address]- Discharge Disposition: A-D/C Home Attending Physician: Nevaeh Olea DO Admitting Physician: Nevaeh Olea DO Referring Physician: Nevaeh Olea DO Encounter Type: One Time OP Allergies, Adverse [...] Recorded pneumococcal 23-valent vaccine 11/02/15 Given Medications aspirin 81 mg oral delayed release tablet 162 mg, 2, tablet, By Mouth, Daily, # 90 tablet, Refills 0, Tot. Refills 0, Maintenance, 11/11/24 3:02:00 PM EST, Route to Pharmacy Electronically, [facility], Partial fill upon patient request [...] 1:08:00 AM EST, REC Powder, [facility], Partial fill upon patient request [...] 03/10/24 1:23:00 PM EDT, Tablet, [facility], Partial fill upon patient request [...] oldest [Reference Range]: 1 Height 165 cm (11/27/24 4:49 AM) Weight 123.9 kg (11/27/24 4:35 AM) Oxygen Saturation [94-100 %] 100 % (11/27/24 4:35 AM) Pulse Rate [55-90 bpm] 107 bpm *H* (11/27/24 4:35 AM) Blood Pressure [90-138/55-84 mm Hg] 143/ 83mm Hg *H* (11/27/24 4:56 AM) Temperature [96.8-100.4 DegF] 98.4 DegF (11/27/24 4:35 AM) Blood pressure sites Arm, right (11/27/24 4:35 AM) Temperature Route Oral (11/27/24 4:35 AM) Weight Obtained Via Standing scale (11/27/24 4:35 AM) Social History Social History Type Response Smoking Status Never (less than 100 in lifetime) entered on: 10/12/24 Sex Sex Representation Female (finding) Note * Ana Cristina Smith RN: PERFORM Event Display: Discharge/Transfer Note Hospital Authored Date: [id number] Nursing Discharge Note Entered On: 11/27/2024 6:03 EST Performed On: 11/27/2024 6:03 EST by Ana Cristina Smith RN Nursing Discharge Note 2 Discharge Time : 11/27/2024 5:58 EST Discharge Level of Care at Discharge : Home/Long-Term/Foster Care Food Service Driver Utilized : No AMA Form Signed : No Patient Left Unit Via : Ambulatory Patient Accompanied Off Unit with : Significant other DC Instructions Provided & Signed by Pt : Yes Patient Understands D/C Instructions : Yes Patient Instructions Discharge Signed : Yes Did Pt have Specialty Bed or Wound Vac : No Ana Cristina Smith RN - 11/27/2024 6:03 EST * Ana Cristina Smith RN: PERFORM Event Display: Patient Education/Instruction Authored Date: [id number] Inpatient Adult Discharge Instructions. [address] [address] Name: IMNETRESSA KATIANA : 1995?? Visit: 11/27/2024 04:29?? Current Date: 11/27/2024 05:49 ?? Account: [id number]?? Inpatient Adult Discharge Instructions We would like [...] and their families. Surveys are administered by [employer] ?? If further treatment with your primary care physician or another doctor is recommended, it is important for you to keep the appointment. Call your primary care physician or return to the Emergency Department immediately if your condition worsens, fails to improve, or new symptoms develop. If you need to find a doctor, you can call [facility] for a referral at [phone] or toll free at [phone]) or log in to [email or web address].. ?? [facility], in keeping with [facility] guidance, no longer requires face masks [...] a health care melinda of your choosing. [facility] is a website that allows you to securely view your medical information including your hospital discharge summary, office visit summaries, medications and follow-up visits. You can also request appointments, renew medications, and request access to your medical information using a health care melinda of your choosing, or just ask a question. You can enroll at [email or web address] or register during your next office visit. You have been discharged from [facility], Patient Care Unit: WETU1??. If you have any questions regarding these instructions, including results of studies pending, afteryou leave, please call us and we will be happy to assist you 19/05. [facility] Your Care Team Attending Physician Nevaeh Olea DO?? Consulting Providers Nevaeh Olea DO?? Tests Performed Below is a partial list [...] a Designated Caregiver: No Discharge Vitals Temperature: 98.4 DegF Height: 165 cm Pulse Rate:??107 bpm??High Weight: 123.9 kg Systolic Blood Pressure:??143 mm Hg??High ?? Diastolic Blood Pressure: 83 mm Hg [...] Hernandez MD Where: [facility] [address] [place] [address]- Status: Pending 2024 4:20 PM EST ?? With: Shaw Mauro MD Where: [facility] [address] [place] [address]- Status: Pending 2024 4:20 PM EDT ?? With: Nevaeh Dutta DO Where: [facility] [address] [place] [address]- Status: Pending Friday 4:20 PM EDT ?? Where: [facility] [address] [place] [address]- Status: Pending 2024 4:20 PM EDT ?? With: Tate Kirk MD Where: [facility] [address] [place] [address]- Status: Pending You Need to Schedule the Following Appointments Follow Up with??[facility] When:??In 12 days 12/09/2024 EST Why: Friday thru 8-4 office open Weekends, Holidays, Overnights this number is an answering service. Leave message with service and a provider will call you back Where: [address] [place], [place] [address] [address]- Business (1) Discharge Medications IRISH SAAB :1995 Visit Date:11/27/2024 Medications: Please continue your medications until treatment [...] Discharge Instructions. [employer] Patient Education - : Subchorionic Hematoma?? [employer] Patient Education - Possible Miscarriage (Threatened )?? [employer] Patient Education - Vaginal Bleeding During ?? [employer] Patient Education - Bleeding During Early ?? [employer] Patient Education - Adapting to : Second Trimester?? Valuables and Belongings I fully understand and agree that [facility] accepts no responsibility for all my [...] are strongly encouraged to quit. Please call [facility] Link at [phone] or [phone]) or log in to [email or web address] for referrals to smoking cessation programs. ?? 021 Suicide & Crisis Lifeline is available 19/05 if you or someone you know needs to find a reason to keep living. By calling 565 you'll be connected to a skilled, trained counselor at a crisis center in your area. INPATIENT DISCHARGE INSTRUCTIONS SIGNATURE PAGE IRISH SAAB Location:[facility] Registration Date and Time:11/27/2024 04:29 EST Primary Care Physician: Hal Grove NP, Attending Physician: Nevaeh Olea DO, I IRISH SAAB, have received the above patient education materials/instructions and have verbalized understanding. If ambulance or transport services are being used I further acknowledge being given a choice of service. ?? If you need to contact me, please call me at this number: . Patient/Tester Waste Disposal Leakage Name: Patient/Tester Waste Disposal Leakage Signature: Relationship to Patient: Witness Name/Signature: Date: * Ana Cristina Smith RN: PERFORM, SIGN, VERIFY Event Display: Patient Education Handout Authored Date: * Ana Cristina Smith RN: PERFORM Event Display: Patient Education Leaflets Authored Date: : Subchorionic Hematoma ?? [id number] Subchorionic Hematoma: Care Instructions Overview Missing Image - Cannot convert non embedded image A subchorionic hematoma or hemorrhage is bleeding between the wall of the uterus and one of the sacs (chorion) that surrounds the embryo inside the uterus. It is a common cause of bleeding in early . The main symptom is vaginal bleeding. But some people don't have symptoms. They may find out they have a hematoma during an ultrasound test. In most cases, the bleeding goes away on its own. Most people go on to have a healthy baby. But in some cases, the bleeding is a sign of a miscarriage or other problem with the . Your doctormay want to do a follow-up ultrasound. Follow-up care is a daniel part of your treatment and safety. Be sure to make and go to all appointments, and call your doctor if you are having problems. It's also a good idea to know your test resultsand keep a list of the medicines you take. How can you care for yourself at home? Keep track of any bleeding, and follow the guidelines for when to call your doctor. ??? Keep inmind that some bleeding during the first trimester or an abnormal finding on an ultrasound may: o Not cause any problems for you or the baby. o sales service route manager to be something more serious. But if this happens, it's best to find out early. Then you and your doctor can manage any complications sooner rather than later. When should you call for help? Missing Image - Cannot convert non embedded image Call 911 anytime you think you may need emergency care. For example, call if: ? You have sudden, severe pain in your belly or pelvis. ? You passed out (lost consciousness). ? You have severe vaginal bleeding. This means you are soaking through a pad each hour for 2 or more hours. Call your doctor now or seek immediate medical care if: ? You are dizzy or lightheaded, or you feel like you may faint. ? You have new or increased pain in your belly, pelvis, or lower back. ? You have new or more vaginal bleeding. ? You think you may have passed tissue. Save any tissue that you pass. Take it to your doctor's office as soon as you can. ? You think that you are in labor. ? You have a sudden release of fluid from your vagina. ? You've been having regular contractions for an hour. This means that you've had at least 8 contractions within 1 hour or at least 4 contractions within 20 minutes, even after you change your position and drink fluids. ? You notice that your baby has stopped moving or is moving much less than normal. Watch closely for changes in your health, and be sure to contact your doctor if you have any problems. Current as of: May 05, 2023 Content Version: 14.0 Care instructions adapted under license by your healthcare professional. If you have questions about a medical condition or this instruction, always ask your healthcare professional. [employer] disclaims any warranty or liability for your use of this information. ? 1212-2483 [employer]. ?? * Luis NAJERA, Ana Cristina Masters: PERFORM Event Display: Patient Education Leaflets Authored Date: [id number] Possible Miscarriage (Threatened ) ?? [id number] Possible Miscarriage (Threatened ) You may be [...] provider. ?? Last Reviewed Date: 2022 ?? 8147-3363 [employer]. All rights reserved. This information is not intended as a substitute for professional medical care. Always follow your healthcare professional's instructions. ?? * Luis NAJERA, Ana Cristina Masters: PERFORM Event Display: Patient Education Leaflets Authored Date: [id number] Vaginal Bleeding During ?? [address] Vaginal Bleeding During You may have vaginal [...] period. But the bleeding is often a bench worker apprentice color, and not heavy. Serious problems Serious [...] . ?? Last Reviewed Date: 2022 ?? 0920-4032 [employer]. All rights reserved. This information is not intended as a substitute for professional medical care. Always follow your healthcare professional's instructions. ?? Patient Care team information Care Team Personnel Name: Jhoana Han RN Position: June HENSON RN Member Role: Primary Care Nurse Name: Hal Grove NP Position: Reference Physician Member Role: PCP Address: [address] [place] [address] Telecom: Care Team Related Persons Name: SHAN SCOTT Name: JAYDEN VIRGEN Insurance Providers Guarantor name: IRISH SAAB [employer] Plan Information #: 2 Payer: [employer] Member Number: [id number] Policy Number: YOHANA Group Number: [id number] Health Plan Information #: 1 Payer: [employer] HMO Member Number: [id number] Policy Number: YOHANA Group Number: [id number]
--- OUTSIDE RECORDS SUMMARY | 2024-12-15 08:35 | XMS_ITS | Continuity of Care Document ---
Author Organization [facility] vices Address [address] [place] [address] Phone Care Team Providers Care Community Outreach Advocate Name Role Phone Unavailable Unavailable Unavailable Allergies, Adverse Reactions, Alerts Substance Reaction Status Criticality No Known Allergies Active No Inform ation Problems Condition Type Effective Dates (start - stop) Clini [place] Status Comments No Known Problems Procedures Procedure Date URINE TEST, BY VISUAL COLOR CO MPARISON OFFICE/OUTPATIENT VISIT, [facility] Advance Directives Directive Yes / No Effective Date File Name No Information Encounters Encounter Description Practice Location Reason(s) For Visit Diagnoses Date Provider Providers Copied on Encounter OFFICE/OUTPA TIENT VISIT, [facility], [address] [place], [address], [place] tel:[phone] [facility] Abnormal Menses (chief complaint) Encounter for [...] us Payers Payer name Insurance type Covered constitution party ID Authoriza tion(s) ILA Mims MC [id number] Social History Type Description Quantity Date Captured [...] initiating any intervention if needed-Recently moved to [place] from [place] 3 months ago, will obtain medical records [...] Mental Status Date Cognitive Assessment Orientation - Gifford ed to time, place, person, situation. Patient Care Teams Name Effective Dates (start - stop) Status Members No Information
--- NOTE | 2024-12-15 08:44 | AM.OFFWIN_ITS ---
Intake Vital Signs 12/15/24 08:58 Height 5 ft 5 in Weight 264 lb BMI 43.9 BP 140/80 H Blood Pressure Location Lt brachial Position Sitting Pulse 91 Pulse Source Pulse Oximeter Temp 98.4 F Temp Source Oral Pulse Oximetry (%) 99 Oxygen Delivery Method Room Air Intake Visit Reasons: EP-cough, b/l ear pain, body ache, congestion Intake Note: Patient here for cough, headaches, head pressure, diarrhea, congestion and body aches that has been present since over the weekend. Patient Tobacco Use Status: Never used Tobacco Allergies erythromycin base Allergy (Severe, Verified 12/15/24 08:58) Watery Eye Environmental Allergy (Mild, Uncoded 12/15/24 08:58) Unknown Do you need a note to return to daycare/school/sports/work: No HPI HPI Comments History of Present Illness Details She presents to office with cough since Friday She admits to dry cough, bilateral ear pain, congestion, ST She admits to subjective chills/fever Has tried DayQuil without relief Has been out of work x 2-3 weeks because she had a loss of and placenta removal on 11/29. Poor sleep due to cough Difficulty sleeping with laying flat She tested herself negative for A and B influenza yesterday [facility] Medical History (Updated 12/15/24 @ 09:18 by Maki Morris PA-C) Pulmonary embolism SVT (supraventricular tachycardia) Surgical History Hx of prior ablation treatment Family History Father HTN (hypertension) CVD (cardiovascular disease) Diabetes mellitus Mother No problems noted. Sister No problems noted. Maternal Grandfather History of blood clots Social History Housing: House Alcohol intake: current Alcohol intake frequency: does not drink Patient Tobacco Use Status: Never used Tobacco e-Cigarette/Vaping Use: Never Used Second Hand Smoke Exposure: Yes service: No Current occupational status: employed Cognitive needs: No Hearing needs: No Vision needs: Yes Physical Exam Vital Signs: Last Vital Signs Temp 98.4 F 12/15/24 08:58 Pulse 91 12/15/24 08:58 BP 140/80 H 12/15/24 08:58 Pulse Ox 99 12/15/24 08:58 Oxygen Delivery Method Room Air 12/15/24 08:58 BMI result Body Mass Index 43.9 General: Non-toxic, NAD. Speaking full sentences. Skin: Warm dry throughout Eye: EOMI HENT: Airway patent. Uvula midline. No pharyngeal erythema or edema. No NURSE TRANSITIONAL. Bilateral canals clear. Minimal erythema L TM but not bulging or perforation. R TM non-erythematous, non-bulging. No TM perforation or hemotympanum noted. Respiratory: CTA bilaterally. No wheezes, rales or rhonchi Cardiac: RRR. No murmur MSK: Full ROM extremities. Neurology: Alert. No aphasia or facial droop. Gait without abnormality Psych: Good mood and affect Assessment & Plan Assessment & Plan (1) Upper respiratory infection: Code(s): J06.9 - Acute upper respiratory infection, unspecified Qualifiers: URI type: unspecified viral URI Qualified Code(s): J06.9 - Acute upper respiratory infection, unspecified Plan: Patient seen and evaluated. Denied chance Chest xray: negative Lungs were cta and no sign of OM or OE on exam Tessalon for cough Patient gave verbal understanding and had no additional questions or concerns at time of discharge All questions answered Orders: Orders XR chest 2V Today J06.9 - Acute upper respiratory infection, unspecified Medications: New benzonatate 200 mg PO BID-TID PRN 14 caps 0RF cough Coding Level of Care Code Est Pt Level 3 (67428) Diagnoses Viral upper respiratory tract infection J06.9 URI type: unspecified viral URI
[2024-12-15 08:58] VITALS: BP 140/80; PULSE 91; TEMP 36.9; O2SAT 99; BMI 43.9
== END 2024-12-15 09:26 | disposition home or self-care (01) ==
PROVIDERS: PCP Nurse Practitioner Family; Visit Provider Physician Assistant
DX: J06.9 Acute upper respiratory infection, unspecified (principal)

== ENCOUNTER → 2024-12-15 09:15 | Outpatient (BNV) | payer OTHER, MEDICAID, SELFPAY | PROVIDERS: PCP Nurse Practitioner Family; Visit Provider Radiology Diagnostic Radiology | DX: R05.9 Cough, unspecified (principal) | CPT/HCPCS: 71046 ==

== ENCOUNTER 2025-03-17 14:44 | Outpatient (AMB) | payer OTHER, SELFPAY ==
--- OUTSIDE RECORDS SUMMARY | 2025-03-17 14:47 | XMS_ITS | Continuity of Care Document ---
Author Organization [facility] vices Address [address] [place] [address] Phone Care Team Providers Care Deburring And Tooling Machine Operator Name Role Phone Unavailable Unavailable Unavailable Allergies, Adverse Reactions, Alerts Substance Reaction Status Criticality No Known Allergies Active No Inform ation Problems Condition Type Effective Dates (start - stop) [facility] [place] Status Comments No Known Problems Procedures Procedure Date URINE TEST, BY VISUAL [place] M[facility]ISON OFFICE/OUTPATIENT VISIT, [facility] Advance Directives Directive Yes / No Effective Date File Name No Information Encounters Encounter Description Practice Location Reason(s) For Visit Diagnoses Date Provider Providers Copied on Encounter OFFICE/OUTPA TIENT VISIT, [facility], [address] [place], [address], [place] tel:[phone] [facility] Abnormal Menses (chief complaint) Encounter for test, [...] republican ID Authoriza tion(s) ILA Mims MC [id number] Social History Type Description Quantity Date Captured [...] initiating any intervention if needed-Recently moved to [place] from [place] 3 months ago, will obtain medical records [...] Mental Status Date Cognitive Assessment Orientation - [place] ed to time, place, person, situation. Patient Care Teams Name Effective Dates (start - stop) Status Members No Information
[2025-03-17 14:48] VITALS: BP 122/80; PULSE 97; O2SAT 98; BMI 45.6
--- NOTE | 2025-03-17 14:48 | A.OFFPC_ITS ---
Vital Signs 03/17/25 14:48 Height 5 ft 5 in Weight 274 lb BMI 45.6 BP 122/80 Blood Pressure Location Rt brachial Position Sitting Pulse 97 Pulse Source Pulse Oximeter Pulse Oximetry (%) 98 Oxygen Delivery Method Room Air Intake Visit Reasons: PE Grinder Set Up Operator External Required: No Accompanied by: Self / Same As Patient Allergies erythromycin base Allergy (Severe, Verified 03/17/25 15:23) Watery Eye Environmental Allergy (Mild, Uncoded 03/17/25 15:23) Unknown Medication List - Last Reconciled 03/17/25 by SUHA Vargas No Known Home Meds Tobacco use date assessed: 11/08/24 Dental Screening Dental Screen Date: 11/08/24 HPI PE HPI Details History of Present Illness The patient is a 30-year-old female presenting for a wellness examination. She reports a medical history significant for morbid obesity and gestational diabetes. She denies any current symptoms such as chest pain, shortness of breath, abdominal pain, blood in stool, constipation, or diarrhea. The patient seeks information on GLP-1 agonists for obesity management. She has undergone gynecological care including Pap smears. There are multiple spider veins present on her lower extremities. Health Maintenance - Discussed the importance of regular la boratory screenings, particularly f asting glucose levels, given the history of gestational diabetes. - Encouraged continued monitoring and ma intenance of gynecological health through scheduled Pap smears. - Advised pursuing appropriate weight ma nagement strategies in line with insurance coverage, including potential use of GLP-1 agonists. Social History Review of Systems - Cardiovascular: Denies chest pain. - Respiratory: Denies shortness of breat h. - Gastrointestinal: Denies abdominal olga n, blood in stool, constipation, diarrhea. - General: Reports awareness of being mo rbidly obese. - Dermatologic: Reports the presence of spider veins on lower extremities. Physical Exam General: Cooperative, healthy appearing, comfortable, no acute distress and well developed, morbidly obese Orientation: Patient oriented x3 Limitations: No limitations Head: Normal to inspection Ears: Hearing grossly normal bilaterally Nose: Normal external nose present Face and sinus: Normal facial exam Eyes: Appearance normal, both eyes and all related structures Neck: Normal visual inspection and Yes full ROM Respiratory: Normal respiratory effort and able to speak in complete sentences. Clear to auscultation bilaterally Cardiovascular: Regular rate and rhythm. Normal S1 and S2 GI: Normal to inspection. Soft to palpation and nontender Skin: No rashes or lesions noted Neuro: Patient oriented x3 Extremities: Normal to inspection, several spider veins noted on lower extremities Results Plan The primary focus of the visit was on wellness and obesity management. We discussed the utility of GLP-1 agonists, and the patient is encouraged to check insurance coverage. Lab tests, including fasting glucose, are recommended given the history of gestational diabetes. Spider veins were noted on the lower extremities, and general lifestyle modifications were advised. Regular Pap smears to monitor gynecological health were also emphasized. Discussion Notes During our discussion, I informed the patient about GLP-1 agonists as a p otential therapeutic option for weight management, explaining their mechanism of action. We talked about the importance of verifying insurance coverage to ensure availability. The need for regular lab screenings, including fasting glucose levels due to her history of gestational diabetes, was highlighted. We agreed that maintaining updated gynecological care, specifically Pap smears, is important. I also mentioned lifestyle modifications that could help address her concerns about spider veins, explaining the importance of timely lab work. Patient Instructions - Consult with your insurance company to determine coverage options for GLP-1 agonists. - Schedule and complete fasting glucose tests and other suggested laboratory screenings soon. - Continue routine gynecological care wi th regular Pap smears. - Maintain a healthy lifestyle to manage weight and prevent exacerbation of spider veins. [facility] Medical History Pulmonary embolism SVT (supraventricular tachycardia) Surgical History Hx of prior ablation treatment Family History Father HTN (hypertension) CVD (cardiovascular disease) Diabetes mellitus Mother No problems noted. Sister No problems noted. Maternal Grandfather History of blood clots Social History Housing: House Alcohol intake: current Alcohol intake frequency: does not drink Patient Tobacco Use Status: Never used Tobacco e-Cigarette/Vaping Use: Never Used Second Hand Smoke Exposure: Yes service: No Current occupational status: employed Cognitive needs: No Hearing needs: No Vision needs: Yes Questionnaire Thrive Questionnaire Date Thrive assessed: 03/17/25 I am a: Patient What is your living situation today?: I have a steady place to live Within the past 12 months, did the food you bought not last and you didn't have the money to get more?: Never true Within the past 12 months, did you worry whether your food would run out before you got money to buy more?: Never true Do you have trouble paying for medicines?: No Do you have trouble getting transportation to medical appointments?: No Do you have trouble paying your heating and electricity bill?: No Do you have trouble taking care of your child, family member or friend?: No Do you have trouble with day-to-day activities such as bathing, preparing meals, shopping, managing finances, etc.?: No Are you currently unemployed and looking for a job?: No Are you interested in more education?: No Please select the resources that you would like help with: None Currently or been in a relationship where the following occur: No concerns reported THRIVE Score: 0 WARREN-7 AMB Questionnaire WARREN-7 Date WARREN - 7 assessed: 11/08/24 Source: Developed by Drs. Neil Roy, Lydia Khan, Vinnie Mendoza and colleagues, with an educational ketty from [employer]. Physical exam (Primary Care) Vital Signs: Last Vital Signs Pulse 97 03/17/25 14:48 BP 122/80 03/17/25 14:48 Pulse Ox 98 03/17/25 14:48 Oxygen Delivery Method Room Air 03/17/25 14:48 BMI result Body Mass Index 45.6 Tobacco/Smoking Status: Tobacco use Status Tobacco use date assessed 11/08/24 03/17/25 14:49 Patient Tobacco Use Status Never used Tobacco 03/17/25 14:49 e-Cigarette/Vaping Use Never Used 03/17/25 14:49 Thrive Assessment: Date of Thrive Assessment Date Thrive assessed 03/17/25 03/17/25 14:49 Currently or been in a relationship where the following occur: No concerns reported Coding Level of Care Code Est Pt Prev Care 18-39y(76538) Diagnoses Physical exam Z00.00 Morbid obesity E66.01 Assessment & Plan Assessment & Plan (1) Physical exam: Code(s): Z00.00 - Encounter for general adult medical examination without abnormal findings Category: Medical (2) Morbid obesity: Code(s): E66.01 - Morbid (severe) obesity due to excess calories Category: Medical Plan .
== END 2025-03-17 15:20 | disposition home or self-care (01) ==
LOC: HO.HMCC 14:45
PROVIDERS: PCP Nurse Practitioner Family; Visit Provider Nurse Practitioner Family
DX: Z00.00 Encounter for general adult medical examination without abnormal findings (principal); E66.01 Morbid (severe) obesity due to excess calories; Z68.42 Body mass index [BMI] 45.0-49.9, adult

== ENCOUNTER → 2025-03-17 14:44 | Outpatient (BNVA) | payer OTHER, SELFPAY | PROVIDERS: PCP Nurse Practitioner Family; Visit Provider Nurse Practitioner Family | DX: Z13.89 Encounter for screening for other disorder (principal) ==

== ENCOUNTER 2025-07-19 16:42 | Emergency (ER) | payer OTHER, SELFPAY ==
[2025-07-19 16:50] VITALS: BP 157/88; PULSE 93; RESP 18; TEMP 36.6; O2SAT 98; BMI 44.9
--- NOTE | 2025-07-19 16:50 | ED_ITS ---
HPI - Abdominal Pain General Chief Complaint: Abdominal Pain Stated Complaint: right side pain/appendix? Related Data Previous Rx's ?Medication ?Instructions ?Recorded semaglutide (weight loss) 0.25 0.25 mg (0.5 mL) subcut QWEEK #2 mL 04/06/ mg/0.5 mL subcutaneous pen injector (Wegovy) Allergies Allergy/AdvReac Type Severity Reaction Status Date / Time erythromycin base Allergy Severe Watery Eye Verified 07/19/25 16:51 shrimp Allergy Unknown Verified 07/19/25 16:51 Environmental Allergy Mild Unknown Uncoded 07/19/25 16:51 [facility] Past Medical History Medical History Pulmonary embolism SVT (supraventricular tachycardia) Surgical History Hx of prior ablation treatment Family History Family History Father HTN (hypertension) CVD (cardiovascular disease) Diabetes mellitus Mother No problems noted. Sister No problems noted. Maternal Grandfather History of blood clots Social History Social History Housing: House Alcohol intake: current Alcohol intake frequency: does not drink Patient Tobacco Use Status: Never used Tobacco e-Cigarette/Vaping Use: Never Used Second Hand Smoke Exposure: Yes service: No Current occupational status: employed Cognitive needs: No Hearing needs: No Vision needs: Yes Physical Exam ED Vital Signs: BMI result Body Mass Index 44.9 Course Course Course Narrative: This is a Rapid Medical Examination (RME) performed by Casey Hung PA-C in triage. Full HPI, ROS, assessment and treatment plan per primary provider in the Main ED. Hx: 30 yo F here for eval of periumbilical abd pain that has now moved to her RUQ with radiation to back. not worse w/ eating. PE/vitals: neg gordillo sign. Plan: labs, UA Reevaluation(s) Reevaluation #1: Patient left the emergency department before myself or any of the other clinicians could review or explain physical exam findings, test results, need or lack there of for additional testing, treatment options, or a treatment plan. Medical Decision Making Lab Data 07/19/25 17:30 07/19/25 17:30 Labs: Lab Results 07/19/25 Range/Units 17:30 WBC 5.5 (4.8-10.8) X10*3/uL RBC 4.24 (4.20-5.50) X10*6/uL Hgb 12.9 (12.0-16.0) g/dl Hct 37.1 (37.0-47.0) % MCV 87.5 (80.0-98.0) fL MCH 30.4 (27.0-33.0) pg MCHC 34.8 (31.0-35.0) g/dl RDW 12.4 (11.0-16.0) % Plt Count 362 (160-400) X10*3/uL MPV 9.2 L (9.4-12.3) fL Immature Gran % (Auto) 0.2 (0.0-0.4) % Neut % (Auto) 49.3 (45-73) % Lymph % (Auto) 40.0 (20-40) % [place] % (Auto) 7.8 (2-11) % Eos % (Auto) 1.4 (0-4) % Baso % (Auto) 1.3 (0-2) % Lymph # (Auto) 2.2 (1.2-4.9) X10*3/uL [place] # (Auto) 0.4 (0.1-1.2) X10*3/uL Eos # (Auto) 0.1 (0.0-0.4) X10*3/uL Baso # (Auto) 0.1 (0.0-0.2) X10*3/uL Abs Immat Gran (auto) 0.01 (0.00-0.03) X10*3/uL Absolute Neuts (auto) 2.7 (2.0-8.3) x10*3/uL Absolute Nucleated RBC 0.000 (0.0-0.012) X10*3/uL Nucleated RBC % (auto) 0.0 (0.0-0.2) /100WBC Sodium 142 (135-145) mmol/L Potassium 4.3 (3.3-5.1) mmol/L Chloride 108 (96-108) mmol/L Carbon Dioxide 28 (22-29) mmol/L Anion Gap 10 L (12-20) BUN 14 (9-16) mg/dL Creatinine 0.66 (0.5-1.4) mg/dL Estim Creat Clear Calc 160.7 Estimated GFR > 60 Random Glucose 136 H (60-115) mg/dL Calcium 9.3 (8.4-10.2) mg/dL Magnesium 2.0 (1.6-2.6) mg/dL Total Bilirubin 0.8 (0.0-1.0) mg/dL AST 30 (5-31) U/L ALT 39 H (0-31) U/L Alkaline Phosphatase 74 (39-117) U/L Total Protein 7.3 (6.5-8.0) g/dL Albumin 4.4 (3.5-5.0) g/dL Lipase 37 (8-78) U/L Discharge Plan Discharge Clinical Impression: Abdominal pain Patient Disposition: Left W/O Completing Treatment Prescriptions: No Action Wegovy 0.25 mg/0.5 mL pen injector 0.25 mg subcut QWEEK Qty: 2 0RF Rx Instructions: administer weeks 1 through 4 of therapy Discharge Date/Time: 07/19/25 21:16
[2025-07-19 17:58] LABS: MANUAL DIFF FLAG NO
[2025-07-19 17:59] LABS: Hematocrit 37.1 % (37.0-47.0); Hemoglobin 12.9 g/dl (12.0-16.0); Imm Gran Abs Auto 0.01 X10*3/uL (0.00-0.03); Imm Gran Pct Auto 0.2 % (0.0-0.4); Lymphocytes Absolute Auto 2.2 X10*3/uL (1.2-4.9); Mean Corpuscular HGB Conc 34.8 g/dl (31.0-35.0); Mean Corpuscular Hemoglobin 30.4 pg (27.0-33.0); Mean Corpuscular Volume 87.5 fL (80.0-98.0); NRBC Abs Auto 0.000 X10*3/uL (0.0-0.012); NRBC Pct Auto 0.0 /100WBC (0.0-0.2); Platelet Count 362 X10*3/uL (160-400); Red Blood Count 4.24 X10*6/uL (4.20-5.50); White Blood Count 5.5 X10*3/uL (4.8-10.8)
[2025-07-19 18:23] LABS: Alanine Aminotransferase 39 U/L (0-31); Albumin Level 4.4 g/dL (3.5-5.0); Alkaline Phosphatase 74 U/L (39-117); Anion Gap 10 (12-20); Aspartate Amino Transferase 30 U/L (5-31); Blood Urea Nitrogen 14 mg/dL (9-16); Calcium 9.3 mg/dL (8.4-10.2); Carbon Dioxide 28 mmol/L (22-29); Chloride 108 mmol/L (96-108); Creatinine Clr Calc Pharmacy 160.7; Estimated Glomerular Filt Rate > 60; Lipase 37 U/L (8-78); Magnesium 2.0 mg/dL (1.6-2.6); Potassium 4.3 mmol/L (3.3-5.1); Sodium 142 mmol/L (135-145); Total Protein 7.3 g/dL (6.5-8.0)
== END 2025-07-19 21:16 | disposition left against medical advice (07) ==
LOC: HO.ED 21:14
PROVIDERS: Physician Assistant Medical; Emergency Provider Emergency Medicine; PCP Nurse Practitioner Family
DX: R10.2 Pelvic and perineal pain (principal); R10.11 Right upper quadrant pain; Z79.85 Long-term (current) use of injectable non-insulin antidiabetic drugs; Z79.899 Other long term (current) drug therapy
CPT/HCPCS: 36415; 80053; 83690; 83735; 85025; 99281; 99283

== ENCOUNTER 2025-07-28 06:37 | Outpatient (AMB) | payer OTHER, SELFPAY ==
--- OUTSIDE RECORDS SUMMARY | 2016-08-28 10:00 | XMS_ITS | Continuity of Care Document ---
Author Organization [facility] Address [address] [place] [address] Phone Care Team Providers Care Roller Stitcher Name Role Phone Unavailable Unavailable Unavailable Allergies, Adverse Reactions, Alerts Substance Reaction Status Criticality No Known Allergies Active No Inform ation Problems Condition Type Effective Dates (start - stop) [facility] [place] Status Comments No Known Problems Procedures Procedure Date URINE TEST, BY VISUAL [facility] MPARISON OFFICE/OUTPATIENT VISIT, [facility] Advance Directives Directive Yes / No Effective Date File Name No Information Encounters Encounter Description Practice Location Reason(s) For Visit Diagnoses Date Provider Providers Copied on Encounter OFFICE/OUTPA TIENT VISIT, [facility], [address] [place], [place], [address], [place] tel:[phone] [facility] Abnormal Menses (chief complaint) Encounter for [...] us Payers Payer name Insurance type Covered republican ID Authoriza tion(s) ILA Mims MC [id number] Social History Type Description Quantity Date Captured [...] initiating any intervention if needed-Recently moved to [place] from [place] 3 months ago, will obtain medical records [...] Mental Status Date Cognitive Assessment Orientation - [place] ed to time, place, person, situation. Patient Care Teams Name Effective Dates (start - stop) Status Members No Information
--- OUTSIDE RECORDS SUMMARY | 2025-07-28 06:41 | XMS_ITS | Clinical Summary ---
Author Organization [facility] Address [address] [place] [address] Care Team Providers Care Manager Of Enterprise Name Role Phone Hal Grove MD Primary Care Provider Allergies No known active allergies Medications metoPROLOL SUCCINATE (TOPROL-XL) 25 MG 24 hr tablet Take 1 tablet (25 mg total) by mouth daily. 2 Active methylPREDNISol one (MEDROL DOSEPAK) 4 MG tabletIndicatio ns:Neck pain,Numbness and tingling of left upper extremity follow package directions 21 tablet 4 Active cyclobenzaprine (FLEXERIL) 10 MG tabletIndicatio ns:Neck pain,Numbness and tingling of left upper extremity Take 1 tablet (10 mg total) by mouth 3 times daily (every 8 hours) as needed for muscle spasms. 40 tablet 1 4 Active Active Problems Problem Noted Date Diagnosed [...] drink = 0.6 oz pur e alcohol) [employer] [facility] [employer] [facility] - Occupational Stress [...] day at this level? 0 min 05/21/2024 Comments Unknown Sex and Gender Information Value Date Recorded Sex Assigned at Female 01/20/2024 12:00 PM EDT Legal Sex Female 4:16 PM EDT Gender Identity Female 01/20/2024 12:00 PM EDT Sexual Orientation Heterosexual (straight) 01/19 12:00 PM EDT Last Filed Vital Signs Vital Sign Reading Time Taken Comments Blood Pressure 131/89 05/21/2024 8:07 AM EDT Pulse 93 05/21/2024 8:07 AM EDT Temperature 36.4 C (97.5 F) 07/26/2022 12:16 PM EDT Respiratory Rate 18 12/29/2023 11:00 AM EST [...] - 19+ 3-dose series) 02/17/2012 Pneumococcal Vaccine: Pediat angela (0-5 Years) and At-Risk Patients (6 to 49 Years) (1 of 2 - PCV) 02/17/2012 Pap Smear (Ages 21-65) 2014 Influenza Vaccine 05/27/2025 11/21/2020, , 09/08/2015 COVID-19 Vaccine (1 - 2023- season) 2025 HPV Vaccines (No Doses Required) Completed Insurance [facility] [employer] Member Subscriber Plan / Payer (Ef fective 2022-Present) Name:Garret Singer Relation to Subscriber:Employee Name:[employer] Date of :1995 Address: [address] [place] [id number] Payer ID:Not on file Group ID:Not on file Type:Not on file Address: [address] [place] [address], [address] [place] [id number] [facility] [employer] Member Subscriber Plan / Payer (Ef fective 2022-Present) Name:Garret Singer Relation to Subscriber:Employee Name:BOB PERSON Date of :1995 Address: [address] [place] [id number] Payer ID:Not on file Group ID:Not on file Type:Not on file Address: [address] [place] [address], [address] [place] [id number] [place] [address] WORKER[employer] [facility] WORKER[employer] Advance Directives * Full Code (Latest Code Status on File) Date Activated Date Inactivated Comments 07/26/2022 5:13 AM Care Teams Manager Of Enterprise Relationship Specialty Start Date End Date Hal Grove MD [address] [place] [address] PCP - General Family Medicine 10/15/22
--- OUTSIDE RECORDS SUMMARY | 2025-07-28 06:41 | XMS_ITS | Encounter Summary ---
Author Organization [facility] Address [address] [place] [address] Care Team Providers Care Semiconductor Assembler Name Role Phone Hal Grove MD Primary Care Provider Encounter Details Date Type Department Care Team ([facility] st Contact Info) Description 01/31/2023 Scanned Document [facility] [address] [phone] Abdulaziz Clark MD 85 [facility] [address] [place], [place] [id number] Social History Tobacco Use Types Packs/Day Years Used Date Smoking Tobacco: Some Days Smokeless Tobacco: Never Alcohol Use Standard Drinks/Week Comments Not Currently 2 (1 standard drink = 0.6 oz pur e alcohol) Comments Unknown Sex and Gender Information Value [...] on filedocumented in this encounter Care Teams Semiconductor Assembler Relationship Specialty Start Date End Date Hal Grove MD [address] [place] [address] PCP - General Family Medicine 10/15/22 documented as of this encounter
--- OUTSIDE RECORDS SUMMARY | 2025-07-28 06:41 | XMS_ITS | Clinical Summary ---
Author Organization [employer] Address [address] [place] [address] [address] [place] [address] Care Team Providers Care Fountain Supervisor Name Role Phone Unavailable Primary Care Provider Unavailabl e Immunizations Immunization Administration Dates Next Due Hep B, adult [...] 1993 Lipid Panel 1993 SDOH Screening 1993 Disability Screening 1993 Alcohol/Substance Use Screening 2005 Tobacco Screening 2005 Family Planning (PISQ) 02/17/2008 HPV Vaccines (1 - 3-dose series) 02/17/2008 Hepatitis C Screening 2011 Pap Smear 2014 Cervical Cancer Screening 2023 HPV/Cotest 2023 COVID-19 Vaccine ( - season) 2025 04/06/2021, 03/16/2021 Influenza Vaccine (#1) 2025 , 11/21/2020, 10/29/2017, Additional history exists DTaP/Tdap/Td Vaccines (2 - Td or Tdap) 01/27/2028 01/26/2018 Zoster Vaccines (1 of 2) 2043 RSV Patients and Patients Aged 60 years or older (1 - 1-dose 75+ series) 02/17/2068 Pneumococcal Vaccine: Pediatrics (0 to 5 Years) and At-Risk Patients (6 to 49) Years Aged Out 11/02/2015 No longer eligible based on patient's age to complete this topic Hepatitis B Vaccines Completed 01/12/2024, 08/08/2023, 07/11/2023 HIB Vaccines Aged Out No longer eligi ble based on patient's age to complete this topic Hepatitis A Vaccines Aged Out No long er eligible based on patient's age to complete this topic IPV Vaccines Aged Out No longer eligi ble based on patient's age to complete this topic Meningococcal B Vaccine Aged Out No l onger eligible based on patient's age to complete this topic Meningococcal Vaccine Aged Out No christi christen eligible based on patient's age to complete this topic RSV under 20 months Aged Out No longe r eligible based on patient's age to complete this topic Rotavirus Vaccines Aged Out No longer eligible based on patient's age to complete this topic Insurance , [address] [place] [address]
--- OUTSIDE RECORDS SUMMARY | 2025-07-28 06:41 | XMS_ITS | Encounter Summary ---
Author Organization [facility] Address [address] [place] [address] Care Team Providers Care Machine Rope Maker Name Role Phone Hal Grove MD Primary Care Provider Encounter Details Date Type Department Care Team ([facility] st Contact Info) Description 01/28/2023 Scanned Document [facility] [address] [phone] Abdulaziz Clark MD 85 [facility] [address] [place], [place] [id number] Social History Tobacco Use Types Packs/Day Years [...] on filedocumented in this encounter Care Teams Machine Rope Maker Relationship Specialty Start Date End Date Hal Grove MD [address] [place] [address] PCP - General Family Medicine 10/15/22 documented as of this encounter
--- OUTSIDE RECORDS SUMMARY | 2025-07-28 06:41 | XMS_ITS | Clinical Summary ---
Author Organization [facility] Address [address] [place] [address] Care Team Providers Care Smoking Tobacco Packing Machine Hand Name Role Phone Unavailable Primary Care Provider [...] 89 05/09/2017 3:21 PM EDT Temperature 36.7 C (98.1 F) 05/09/2017 3:21 PM EDT Respiratory Rate 16 05/09/2017 3:21 PM EDT [...] (P ap Smear) 2014 Influenza Vaccine (#1) 2025 Pneumococcal Vaccine Aged Out No long er eligible based on patient's age to complete this topic RSV Ped < 20 months Aged Out No longe r eligible based on patient's age to complete this topic
--- OUTSIDE RECORDS SUMMARY | 2025-07-28 06:41 | XMS_ITS | Encounter Summary ---
Author Organization [facility] Address [address] [place] [address] Care Team Providers Care Bi Analyst Name Role Phone Hal Grove MD Primary Care Provider [phone] Encounter Details Date Type Department Care Team ([facility] st Contact Info) Description 01/28/2023 Scanned Document [facility] [address] [phone] Abdulaziz Clark MD 85 [facility] [address] [place], [place] [id number] Social History Tobacco Use Types Packs/Day Years [...] on filedocumented in this encounter Care Teams Bi Analyst Relationship Specialty Start Date End Date Hal Grove MD [address] [place] [address] PCP - General Family Medicine 10/15/22 documented as of this encounter
--- OUTSIDE RECORDS SUMMARY | 2025-07-28 06:41 | XMS_ITS | Clinical Summary ---
Author Organization [facility] Address [address] [place] [address] Care Team Providers Care Box Spinner Name Role Phone Unavailable Primary Care Provider [...] Cervical Cancer Screening: P ap Smear 2014 HPV Vaccines (1 - 3-dose SCD M series) 02/17/2020 Depression Screening 10/27/2024 COVID-19 Vaccine (1 - 2023-2 5 season) 2025 Influenza Vaccine (#1) 2025 RSV Immunization Adult Patie nts (1 - 1-dose 75+ series) 02/17/2068 HIB Vaccines Aged Out No longer eligi [...] 5 Years) and At-Risk Patients (6 to 49 Years) Aged Out No longer eligible b ased on patient's age to complete this topic RSV Immunization Patients Un pallavi 20 months Aged Out No longer eligible b ased on patient's age to complete this topic Varicella Vaccines Aged Out No longer eligible based on patient's age to complete this topic
--- OUTSIDE RECORDS SUMMARY | 2025-07-28 06:41 | XMS_ITS ---
Author Name [facility] Organization Unknown History of Medication Use Medication Directions Dispensed Refills Start Date End Date Stat us methylPREDNISolone (MEDROL DOSEPAK) 4 MG tablet follow package directions 01/23/2024 active benzonatate (TESSALON) 100 MG capsule Take 1 capsule (100 mg total) by mouth 3 (three) times a day as needed for cough. 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 [facility] Cervical myofascial pain syndrome active 2024-05-21 ProblemAct [facility] Neck pain active 2024-01-23 ProblemAct [facility] Left carpal tunnel syndrome active 2024-05-21 ProblemAct [facility] Numbness and tingling of left upper extremity active 2024-01-23 ProblemAct [facility] Encounters Encounter Type Encounter Reason Primary Diagnosis Location Date Ambulatory Anesthesia of skin Anesthesia of skin [facility] 05/21/2024 Ambulatory Cervicalgia Cervicalgia [facility] 03/02/2024 Ambulatory Cervicalgia Cervicalgia [facility] 01/23/2024 Ambulatory Pain in left shoulder Pain in left shoulder [facility] 12/29/2023 Ambulatory Dissection of vertebral artery [facility] 01/06/2023 Ambulatory Dissection of vertebral artery [facility] 12/09/2022 Ambulatory Dissection of vertebral artery [facility] 10/17/2022 Observation Dissection of vertebral artery [facility] 07/25/2022 Care Team Organization Name Specialty Phone Email Start Date End [facility] 08/28/2023 024 [facility] 07/19/2023 024 [facility] JURGEN BETANCUR Primary Care 10/17/2022 025 [facility] LAMONTE MAZARIEGOS Primary Care 07/26/202201/12 [facility] JURGEN BETANCUR Primary Care 07/25/2022 023 [facility] Lamonte Mazariegos Primary Care 07/25/202201/20 [facility] 07/25/2022 07/25/2022
--- NOTE | 2025-07-28 07:14 | MHC.PC.OV ---
Intake Visit Reasons: Discuss weight loss med Allergies erythromycin base Allergy (Severe, Verified 07/28/25 07:24) Watery Eye shrimp Allergy (Verified 07/28/25 07:24) Unknown Environmental Allergy (Mild, Uncoded 07/28/25 07:24) Unknown Medication List - Last Reconciled 07/28/25 by MONTSE Vargas- tirzepatide (weight loss) (Zepbound) 2.5 mg (0.5 mL) subcut QWEEK Tobacco use date assessed: 11/08/24 Dental Screening Dental Screen Date: 11/08/24 HPI Discuss weight loss med HPI Details History of Present Illness The patient is a 30-year-old female presenting with weight management concerns and elevated fasting blood sugar. She has a history of morbid obesity and has managed to reduce her weight from the 280s to the 260s through dietary changes, although she is currently experiencing a plateau. A GLP-1 agonist was previously prescribed but denied by insurance, and a new prescription for Zepbound will be sent. The patient is actively engaged with a electric meter technician, who also recommended the use of a GLP-1 agonist to aid in weight management. She denies experiencing any chest pain, increased shortness of breath, abdominal pain, nausea, or vomiting. She also denies any history of pancreatitis or thyroid carcinoma. Review of Systems - Cardiovascular: Denies chest pain or increased shortness of breath. - Gastrointestinal: Denies abdominal pain, nausea, or vomiting. - Endocrine: Denies history of pancreatitis or thyroid carcinoma. Plan Patient was informed and verbally consented to the use of an ambient scribe for clinic note documentation during this visit. 1. Morbid Obesity The patient has been managing her weight through dietary changes, reducing from the 280s to the 260s, but has reached a plateau. A GLP-1 agonist, Zepbound, will be prescribed to assist with further weight loss, following a previous denial of a similar medication by insurance. Continued engagement with a electric meter technician is recommended to support dietary management. 2. Elevated Fasting Blood Sugar The elevated fasting blood sugar is being addressed through weight management strategies, including dietary changes and the potential use of a GLP-1 agonist. Monitoring of blood sugar levels and follow-up consultations are advised to assess the effectiveness of the interventions. Discussion Notes I discussed with the patient the benefits of using a GLP-1 agonist, specifically Zepbound, to aid in weight management and potentially improve her elevated fasting blood sugar levels. We reviewed the previous denial of a similar medication and the plan to attempt a different prescription. The importance of continued dietary management with the support of a electric meter technician was emphasized. Patient Instructions - Continue dietary changes and consult with your electric meter technician regularly. - Start the prescribed GLP-1 agonist, Zepbound, as directed. - Monitor your blood sugar levels and report any significant changes. - Schedule follow-up appointments to assess progress and adjust treatment as necessary. [facility] Medical History Pulmonary embolism SVT (supraventricular tachycardia) Surgical History Hx of prior ablation treatment Family History Father HTN (hypertension) CVD (cardiovascular disease) Diabetes mellitus Mother No problems noted. Sister No problems noted. Maternal Grandfather History of blood clots Social History Housing: House Alcohol intake: current Alcohol intake frequency: does not drink Patient Tobacco Use Status: Never used Tobacco e-Cigarette/Vaping Use: Never Used Second Hand Smoke Exposure: Yes service: No Current occupational status: employed Cognitive needs: No Hearing needs: No Vision needs: Yes Questionnaire Thrive Questionnaire Date Thrive assessed: 11/01/24 I am a: Patient What is your living situation today?: I have a steady place to live Within the past 12 months, did the food you bought not last and you didn't have the money to get more?: Never true Within the past 12 months, did you worry whether your food would run out before you got money to buy more?: Never true Do you have trouble paying for medicines?: No Do you have trouble getting transportation to medical appointments?: No Do you have trouble paying your heating and electricity bill?: No Do you have trouble taking care of your child, family member or friend?: No Do you have trouble with day-to-day activities such as bathing, preparing meals, shopping, managing finances, etc.?: No Are you currently unemployed and looking for a job?: No Are you interested in more education?: No Please select the resources that you would like help with: None Currently or been in a relationship where the following occur: No concerns reported THRIVE Score: 0 WARREN-7 AMB Questionnaire WARREN-7 Date WARREN - 7 assessed: 11/08/24 Source: Developed by Drs. Neil Roy, Lydia Khan, Vinnie Mendoza and colleagues, with an educational ketty from [employer]. Physical exam (Primary Care) Tobacco/Smoking Status: Tobacco use Status Tobacco use date assessed 11/08/24 03/17/25 14:49 Patient Tobacco Use Status Never used Tobacco 03/17/25 14:49 e-Cigarette/Vaping Use Never Used 03/17/25 14:49 Thrive Assessment: Date of Thrive Assessment Date Thrive assessed 11/01/24 07/21/25 11:53 Currently or been in a relationship where the following occur: No concerns reported Telehealth Telehealth Telehealth Platform: [facility] Location of provider rendering services: practice address Location of patient: address on file Patient Identification confirmed using: Name, : Yes Telehealth method: video Patient verbally consented to treatment: Yes Patient verbally consented to billing insurance company: Yes Patient informed of any privacy concerns related to visit: Yes Minutes spent on Phone/Video with Pt.: 12 Coding Level of Care Code Tele Est Pt Level 3 (07508) Diagnoses Morbid obesity E66.01 Elevated fasting blood sugar R73.01 Assessment & Plan Assessment & Plan (1) Morbid obesity: Code(s): E66.01 - Morbid (severe) obesity due to excess calories Category: Medical (2) Elevated fasting blood sugar: Code(s): R73.01 - Impaired fasting glucose Category: Medical Plan . Medications: New tirzepatide (weight loss) (Zepbound) for 4 weeks 2.5 mg (0.5 mL) subcut QWEEK 2 mL 0RF Discontinued semaglutide (weight loss) (Wegovy) administer weeks 1 through 4 of therapy Discontinued Reason: Doctor's Order 0.25 mg (0.5 mL) subcut QWEEK 2 mL 0RF
== END 2025-07-28 15:03 | disposition home or self-care (01) ==
LOC: HO.HMCC 06:38
PROVIDERS: PCP Nurse Practitioner Family; Visit Provider Nurse Practitioner Family
DX: E66.01 Morbid (severe) obesity due to excess calories (principal); R73.01 Impaired fasting glucose

== ENCOUNTER 2025-09-13 15:39 | Outpatient (AMB) | payer OTHER, SELFPAY ==
--- NOTE | 2025-09-13 15:42 | A.OFFVIS_ITS ---
Vital Signs 09/13/25 15:44 Height 5 ft 5 in Weight 268 lb 15.423 oz BMI 44.8 BP 128/80 Blood Pressure Location Rt brachial Position Sitting Pulse 100 Pulse Source Pulse Oximeter Pulse Oximetry (%) 96 Oxygen Delivery Method Room Air Intake Visit Reasons: Morbid (severe) obesity due to excess calories Intake Note: NEW Patient presents here to for Weight Management: Social Media Designer Required: No Accompanied by: Self / Same As Patient Allergies erythromycin base Allergy (Severe, Verified 09/13/25 15:43) Watery Eye shrimp Allergy (Verified 09/13/25 15:43) Unknown Environmental Allergy (Mild, Uncoded 09/13/25 15:43) Unknown Medication List - Last Reconciled 09/13/25 by Neil Krishnan MD metformin mg PO vit,[place] [id number] 29 mg iron- 1 mg (Prenatabs Rx) 1 tab PO DAILY tirzepatide (weight loss) (Zepbound) 2.5 mg (0.5 mL) subcut QWEEK HPI Comments Details: Is a 30-year-old female sent to endocrinology for evaluation of obesity. Patient states weight gain of 40 lbs lb over 9 mos . She has tried diets of low portions . She is prescribed Zepbound by her primary care provider. She has seen a transportation logistics internship in past . There are no symptoms of Gia syndrome. No hx of thyroid problems A TSH level was ordered by her primary care provider but not check recently. Hx of prediabetes. No sleep apnea The patient is a 30-year-old female presenting with weight management concerns. She reports a history of fluctuating weight, with her heaviest being 285 pounds before experiencing a miscarriage in November. Following the miscarriage, she attempted weight loss through diet and medication, losing 10 pounds initially but then plateauing. The patient has gained approximately 40 to 45 pounds over the past six months, despite efforts to adhere to a strict diet. She has been consuming low portions, salads, and vegetables, avoiding red meat as advised by a transportation logistics internship. She has also tried medications like naltrexone but experienced nausea, leading to discontinuation. The patient denies any history of thyroid problems or sleep apnea but reports a family history of diabetes and hypertension. Her last recorded blood glucose level was 6.4, indicating prediabetes. She has no symptoms of muscular weakness, abnormal hair growth, or skin changes associated with endocrine disorders. The patient follows a diet consisting of low portions, salads, and vegetables, while avoiding red meat as per the advice of a transportation logistics internship. [facility] Medical History Pulmonary embolism SVT (supraventricular tachycardia) Surgical History Hx of prior ablation treatment Family History Father HTN (hypertension) CVD (cardiovascular disease) Diabetes mellitus Mother No problems noted. Sister No problems noted. Maternal Grandfather History of blood clots Social History Housing: House Alcohol intake: current Alcohol intake frequency: does not drink Patient Tobacco Use Status: Never used Tobacco e-Cigarette/Vaping Use: Never Used Second Hand Smoke Exposure: Yes service: No Current occupational status: employed Cognitive needs: No Hearing needs: No Vision needs: Yes Physical Exam Vital Signs: Last Vital Signs Pulse 100 09/13/25 15:44 BP 128/80 09/13/25 15:44 Pulse Ox 96 09/13/25 15:44 Oxygen Delivery Method Room Air 09/13/25 15:44 BMI result Body Mass Index 44.8 Const Other: No cushingoid features. Thyroid gland is normal size weighs about 15 g. There are no thyroid nodules palpated. Presence of acanthosis nigricans in the skin behind the neck Assessment & Plan Assessment & Plan (1) Morbid obesity: Code(s): E66.01 - Morbid (severe) obesity due to excess calories Category: Medical Plan: This is a 30-year-old female with a history of morbid obesity. No clear underlying endocrine issues. Have patient check TSH and free T4 as requested by primary care provider. We will send patient to transportation logistics internship. We will talk to patient about weight loss medications including G LP 1/GI P. Unfortunately these medications are not covered by her insurance plan as of October 27 2025 so she would have to pay in patel to obtain this. We did talk about patel pay programs and the patient wants to go with a patel pay program should the Zepbound be denied by insurance 1. Obesity The patient has been experiencing significant weight gain over the past six months despite dietary efforts. Discussion included the multifactorial nature of obesity, including genetic and dietary factors. The potential use of GLP-1 receptor agonists like Zepbound was discussed as a treatment option, considering its ability to alter the body's weight set point and reduce insulin resistance. The patient was informed about the side effects and cost considerations of these medications. 2. Prediabetes The patient's blood glucose level of 6.4 indicates prediabetes. The importance of weight management in reducing the risk of progression to diabetes was emphasized. The potential benefits of GLP-1 receptor agonists in improving insulin sensitivity were discussed. I discussed with the patient the complexity of obesity, highlighting its genetic and dietary components. We explored the use of GLP-1 receptor agonists, such as Zepbound, for weight management and their role in altering the body's weight set point. I explained the potential side effects, including nausea, and the cost implications of these medications. We also discussed the patient's prediabetes status and the importance of weight management in preventing diabetes progression. I provided information on reputable sources for further reading, including the [employer] and [employer]ormone.[employer]. - Continue following a healthy diet as advised by the transportation logistics internship. - Consider the potential use of GLP-1 receptor agonists for weight management, keeping in mind the discussed side effects and costs. - Monitor blood glucose levels regularly to manage prediabetes. - Follow up in three months or sooner if there are any concerns or changes in health status. The patient had an opportunity to ask questions regarding treatment plan. The patient expressed understanding and agreement with the above treatment plan. Patient was informed and verbally consented to the use of an ambient scribe for clinic note documentation during this visit. Medications: Refilled tirzepatide (weight loss) (Zepbound) for 4 weeks 2.5 mg (0.5 mL) subcut QWEEK 2 mL 0RF Coding Level of Care Code New Pt Level 4 (72322) Diagnoses Morbid obesity E66.01
[2025-09-13 15:44] VITALS: BP 128/80; PULSE 100; O2SAT 96; BMI 44.8
== END 2025-09-13 16:15 | disposition home or self-care (01) ==
LOC: HO.ENCR 15:39
PROVIDERS: PCP Nurse Practitioner Family; Visit Provider Internal Medicine Endocrinology, Diabetes & Metabolism
DX: E66.01 Morbid (severe) obesity due to excess calories (principal)
CPT/HCPCS: 99204

== ENCOUNTER 2025-09-15 12:52 | Outpatient (AMB) | payer OTHER, SELFPAY ==
--- OUTSIDE RECORDS SUMMARY | 2016-08-28 09:00 | XMS_ITS | Continuity of Care Document ---
Author Organization [facility] Address [address] [place] [address] Phone Care Team Providers Care Hand Inserter Operator Name Role Phone Unavailable Unavailable Unavailable Allergies, Adverse Reactions, Alerts Substance Reaction Status Criticality No Known Allergies Active No Inform ation Problems Condition Type Effective Dates (start - stop) [facility] [place] Status Comments No Known Problems Procedures Procedure Date URINE TEST, BY VISUAL [facility] MPARISON OFFICE/OUTPATIENT VISIT, [facility] Advance Directives Directive Yes / No Effective Date File Name No Information Encounters Encounter Description Practice Location Reason(s) For Visit Diagnoses Date Provider Providers Copied on Encounter OFFICE/OUTPA TIENT VISIT, [facility], [address] [place], [address], [place] tel:[phone] [facility] Abnormal Menses (chief complaint) Encounter for test, result negativeOligomeno rrhea 2-201 6 No Information Family History Family Member Type Diagnosis Age At Onset Maternal grandfather Problem (finding) hypertension Paternal aunt Problem (finding) cancer of colon (Cause Of ) Paternal aunt Problem (finding) breast cancer Maternal grandmother Problem (finding) Diabetes mellit [place] Maternal aunt Problem (finding) Diabetes mellitus Father Problem (finding) Diabetes mellitus Maternal grandfather Problem (finding) Diabetes mellit us Paternal grandmother Problem (finding) Diabetes mellit us Paternal grandfather Problem (finding) Diabetes mellit us Payers Payer name Insurance type Covered democrat ID Authoriza tion(s) ILA Mims MC [id number] Social History Type Description Quantity Date Captured Comments Alcohol Use Details Unknown Caffeine Use Details Unknown Tobacco Use Status No Information Smoking Status Never smoker Non-Smoking Tobacco Use Details : No Details Available : No Details Available Sex Female Sexual Orientation Straight or heterosexual Vital Signs Date / Time: Height Weight BMI Pulse Rate Blood Pressure Temperature Respiratory Rate Body Surface Area Head Circumference Head Circ. Percentile Wt./Ziyad. Percentile BMI percentile Pulse Ox Inhaled Ox 2:01 PM 63.00 in 117.480 kg (259.00 lbs) 45.8 8 kg/m eter (2) 88 /min 102/64 mm[Hg] 16 /min Chief Complaint And Reason For Visit From encounter dated '08/28/2016 14:00'. Abnormal Menses (chief complaint). Description: Onset: 2 months ago. The severity level is mild. Last menstrual period was on 06/10/2016. The age of menarche onset was 5. The menstrual cycle length is 8 Days(s) and the frequency is every 28 days. The patient's relevant history is positive for obesity. The patient's relevant history is negative for anorexia nervosa, antiepileptic me dication, diabetes mellitus, family history of delayed puberty, family history of polycystic ovary syndrome, hemochromatosis, history of prior D&C, hyperprolactinemia, hypertension, hypothalamic lesions, hypothyroidism, insulin resistance, menopause, oral contraceptive use, ovarian tumor, polycystic ovary syndrome, , radiation, sarcoidosis and unprotected intercourse. Pertinent negatives include acne, alopecia, back pain, bleeding between menses, bloating, breast tenderness, clitoral enlargement, constipation, cyclic pelvic pain, decreased libido, difficulty concentrating, difficulty sleeping, dyspareunia, fatigue, galactorrhea, hirsutism, hot flashes, infertility, male pattern hair loss, nausea, menstrual cramping, ovulatory pain, pelvic pain, vaginal dryness or weight loss. 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 Reason For Referral Reason For Referral No Information History Of Present Illness Encounter Date Complaint History Of Prese nt Illness Abnormal Menses Onset: 2 months ago. The severity level is mild. Last menstrual period was on 06/10/2016. The age of menarche onset was 5. The menstrual cycle length is 8 Days(s) and the frequency is every 28 days. The patient's relevant history is positive for obesity. The patient's relevant history is negative for anorexia nervosa, antiepileptic medication, diabetes mellitus, family history of delayed puberty, family history of polycystic ovary syndrome, hemochromatosis, history of prior D&C, hyperprolactinemia, hypertension, hypothalamic lesions, hypothyroidism, insulin resistance, menopause, oral contraceptive use, ovarian tumor, polycystic ovary syndrome, , radiation, sarcoidosis and unprotected intercourse. Pertinent negatives include acne, alopecia, back pain, bleeding between menses, bloating, breast tenderness, clitoral enlargement, constipation, cyclic pelvic pain, decreased libido, difficulty concentrating, difficulty sleeping, dyspareunia, fatigue, galactorrhea, hirsutism, hot flashes, infertility, male pattern hair loss, nausea, menstrual cramping, ovulatory pain, pelvic pain, vaginal dryness or weight loss. 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 Functional Status Date Functional Assessmen t Pain Score 0/10 Instructions Date Instruction Additional Infor deborah -New onset Oligomeno rrhea, presents today to confirm negative test after missed menses-Normal menses pattern--> every 28 day cycle with 8 day length, denies any prior history of Oligiomenorrha or amenorrhea, used IUD Mirena 2013 x 2 months but uncomfortable therefore had removed-If no menses in 2 weeks take home test or RTC for preg test, will need to review old records prior to initiating any intervention if needed-Recently moved to [place] from [place] 3 months ago, will obtain medical records from previous practice prior to obtaining any labs or tests, states up to date on pap-history includes SVT with Catheter ablation to correct done in Sep 2015, Unprovoked PE Oct 2015 -coumadin therapy x 6 months, has apt with [facility] to establish care on 09/27/16- recommended to pt to obtain medical records prior to this apt and bring to visit, pt verbalized an understanding and agreed to obtain records and bring in to visit-If pt has menses within 2 weeks instructed to keep menses diary x 3 months then f/u in 3 months, will need to review old records prior to initiating any intervention if neededRTC prn The patient verbalized an understanding of all instructions. The patient verbalized an understanding of the plan. Related to Oligomenorrhea Assessments Type Assessment Date assessment Encounter for test, re sult negative assessment Oligomenorrhea Mental Status Date Cognitive Assessment Orientation - [place] ed to time, place, person, situation. Patient Care Teams Name Effective Dates (start - stop) Status Members No Information
[2025-09-15 12:56] VITALS: BP 130/72; PULSE 90; O2SAT 98; BMI 45.1
--- NOTE | 2025-09-15 12:56 | MHC.PC.OV ---
Vital Signs 09/15/25 12:56 Height 5 ft 5 in Weight 271 lb BMI 45.1 BP 130/72 Blood Pressure Location Lt brachial Position Sitting Pulse 90 Pulse Source Pulse Oximeter Pulse Oximetry (%) 98 Intake Visit Reasons: 6 months f/up Allergies erythromycin base Allergy (Severe, Verified 09/15/25 12:57) Watery Eye shrimp Allergy (Verified 09/15/25 12:57) Unknown Environmental Allergy (Mild, Uncoded 09/13/25 15:43) Unknown Tobacco use date assessed: 11/08/24 Dental Screening Dental Screen Date: 11/08/24 HPI 6 months f/up HPI Details History of Present Illness The patient is a 30 year old individual presenting for a physical examination. The patient reports feeling well overall and denies chest pain, shortness of breath, abdominal discomfort, or any bladder, bowel, or urinary issues. The patient also denies any suicidal or homicidal ideation. The patient reports left ear discomfort following a dental visit yesterday. It was noted that a left-sided wisdom tooth needs to be extracted, and the current discomfort is thought to be radiating pain from this dental issue. During the dental visit, an automated machine recorded a diastolic blood pressure in the 100s, but a manual cuff was not available for verification. The patient's past medical history is notable for obesity, and there is a plan to start a GLP-1 agonist in the near future for weight loss. The patient is also currently attending a fertility clinic. Health Maintenance The patient will proceed with previously ordered lab work tomorrow. Social History - Family planning: The patient is attending a fertility clinic in [place]. - Weight management: The patient has obesity and is planned to start a GLP-1 agonist for weight loss. Review of Systems - Ears: Reports left ear discomfort. - Cardiovascular: Denies chest pain. - Respiratory: Denies shortness of breath. - Gastrointestinal: Denies abdominal discomfort or bowel issues. - Genitourinary: Denies any bladder or urinary issues. - Psychiatric: Denies suicidal or homicidal ideation. Physical Exam General: Cooperative, healthy appearing, comfortable, no acute distress and well developed, morbidly obese Orientation: Patient oriented x3 Limitations: No limitations Head: Normal to inspection Ears: TM intact, no erythema Nose: Normal external nose present Face and sinus: Normal facial exam, wisdom tooth needs to be pulled on the left side Eyes: Appearance normal, both eyes and all related structures Neck: Normal visual inspection and Yes full ROM Respiratory: Normal respiratory effort and able to speak in complete sentences. Clear to auscultation bilaterally Cardiovascular: Regular rate and rhythm. Normal S1 and S2. GI: Normal to inspection. Soft to palpation and nontender Skin: No rashes or lesions noted Neuro: Patient oriented x3 Extremities: Normal to inspection Results - Other: A blood pressure measurement from the prior day, taken via an automated machine at a dental office, reportedly had a diastolic value in the 100s. Plan 1. Otalgia, Left Ear The left ear discomfort is believed to be referred pain from a left wisdom tooth that requires extraction, as otoscopic examination of the ear canal was unremarkable. The plan is for the patient to address the underlying dental issue. 2. Elevated Blood Pressure Reading The elevated diastolic blood pressure reading in the 100s, recorded by a machine at the dentist's office, is suspected to be a machine error. Today's blood pressure was stable at 130/72 mmHg, which is consistent with the patient's baseline, and the patient denies associated symptoms such as chest pain or shortness of breath. The plan is to continue monitoring without immediate intervention. 3. Obesity The patient has obesity. The patient will be starting a GLP-1 agonist in the near future to aid with weight loss. Discussion Notes I explained to the patient that the left ear discomfort is likely referred pain from the left wisdom tooth that needs extraction, as the physical exam of the ear canal was normal. I also discussed that the elevated blood pressure reading from the dentist's office was likely a machine error, given the patient's stable reading of 130/72 mmHg today and absence of concerning symptoms. We reviewed the plan to start a GLP-1 agonist for weight loss and confirmed that the patient will complete the ordered labs tomorrow. Patient Instructions - Follow up with your dentist to address the wisdom tooth on your left side, as this is the likely cause of your ear pain. - Your blood pressure reading in our office today was normal at 130/72; the high reading at the dentist's office was likely an error from their machine. - Please complete your blood tests tomorrow; the order has already been sent. - You will be starting a new medication, a GLP-1 agonist, in the near future to help with weight loss. [facility] Medical History Pulmonary embolism SVT (supraventricular tachycardia) Surgical History Hx of prior ablation treatment Family History Father HTN (hypertension) CVD (cardiovascular disease) Diabetes mellitus Mother No problems noted. Sister No problems noted. Maternal Grandfather History of blood clots Social History Housing: House Alcohol intake: current Alcohol intake frequency: does not drink Patient Tobacco Use Status: Never used Tobacco e-Cigarette/Vaping Use: Never Used Second Hand Smoke Exposure: Yes service: No Current occupational status: employed Cognitive needs: No Hearing needs: No Vision needs: Yes Questionnaire Thrive Questionnaire Date Thrive assessed: 11/01/24 I am a: Patient What is your living situation today?: I have a steady place to live Within the past 12 months, did the food you bought not last and you didn't have the money to get more?: Never true Within the past 12 months, did you worry whether your food would run out before you got money to buy more?: Never true Do you have trouble paying for medicines?: No Do you have trouble getting transportation to medical appointments?: No Do you have trouble paying your heating and electricity bill?: No Do you have trouble taking care of your child, family member or friend?: No Do you have trouble with day-to-day activities such as bathing, preparing meals, shopping, managing finances, etc.?: No Are you currently unemployed and looking for a job?: No Are you interested in more education?: No Please select the resources that you would like help with: None Currently or been in a relationship where the following occur: No concerns reported THRIVE Score: 0 WARREN-7 AMB Questionnaire WARREN-7 Date WARREN - 7 assessed: 11/08/24 Source: Developed by Drs. Neil Roy, Lydia Khan, Vinnie Mendoza and colleagues, with an educational ketty from [employer]. Physical exam (Primary Care) Vital Signs: Last Vital Signs Pulse 90 09/15/25 12:56 BP 130/72 09/15/25 12:56 Pulse Ox 98 09/15/25 12:56 BMI result Body Mass Index 45.1 Tobacco/Smoking Status: Tobacco use Status Tobacco use date assessed 11/08/24 09/15/25 12:57 Patient Tobacco Use Status Never used Tobacco 09/15/25 12:57 e-Cigarette/Vaping Use Never Used 09/15/25 12:57 Thrive Assessment: Date of Thrive Assessment Date Thrive assessed 11/01/24 09/15/25 12:57 Currently or been in a relationship where the following occur: No concerns reported Coding Level of Care Code Est Pt Prev Care 18-39y(57489) Diagnoses Physical exam Z00.00 Assessment & Plan Assessment & Plan (1) Physical exam: Code(s): Z00.00 - Encounter for general adult medical examination without abnormal findings Category: Medical Plan .
--- OUTSIDE RECORDS SUMMARY | 2025-09-15 18:32 | XMS_ITS | Clinical Summary ---
Author Organization [facility] Address [address] [place] [address] Care Team Providers Care Branch Operation Evaluation Manager Name Role Phone Hal Grove MD Primary Care Provider [phone] Allergies No known active allergies Medications metoPROLOL [...] drink = 0.6 oz pur e alcohol) [facility] [place] [facility] - Occupational Stress [...] HPV Vaccines (No Doses Required) Completed Insurance [facility] , [address] [place] [id number] [facility] , [address] [place] [phone] [place] [address] [employer] [facility] [employer] Advance Directives * Full Code (Latest Code Status on File) Date Activated Date Inactivated Comments 07/26/2022 5:13 AM Care Teams Branch Operation Evaluation Manager Relationship Specialty Start Date End Date Hal Grove MD [address] [place] [address] PCP - General Family Medicine 10/15/22
--- OUTSIDE RECORDS SUMMARY | 2025-09-15 18:32 | XMS_ITS | Encounter Summary ---
Author Organization [facility] Address [address] [place] [address] Care Team Providers Care Product Safety And Standards Engineer Name Role Phone Hal Grove MD Primary Care Provider Encounter Details Date Type Department Care Team ([facility] st Contact Info) Description 01/28/2023 Scanned Document [facility] Neuroscience [facility] [address] [phone] Abdulaziz Clark MD 85 [facility] [address] [place], [place] [id number] Social History Tobacco Use Types Packs/Day Years [...] on filedocumented in this encounter Care Teams Product Safety And Standards Engineer Relationship Specialty Start Date End Date Hal Grove MD [address] [place] [address] PCP - General Family Medicine 10/15/22 documented as of this encounter
--- OUTSIDE RECORDS SUMMARY | 2025-09-15 18:32 | XMS_ITS | Clinical Summary ---
Author Organization [facility] Address [address] [place] [address] Care Team Providers Care Acid Extractor Name Role Phone Unavailable Primary Care Provider [...]
--- OUTSIDE RECORDS SUMMARY | 2025-09-15 18:32 | XMS_ITS | Encounter Summary ---
Author Organization [facility] Address [address] [place] [address] Care Team Providers Care Electrical And Instrument Engineer Name Role Phone Hal Grove MD Primary Care Provider [phone] Encounter Details Date Type Department Care Team ([facility] st Contact Info) Description 01/28/2023 Scanned Document [facility] Neuroscience [facility] [address] [id number] Abdulaziz Clark MD 85 [facility] [address] [place], [place] [id number] Social History Tobacco Use Types Packs/Day Years [...] on filedocumented in this encounter Care Teams Electrical And Instrument Engineer Relationship Specialty Start Date End Date Hal Grove MD [address] [place] [address] PCP - General Family Medicine 10/15/22 documented as of this encounter
--- OUTSIDE RECORDS SUMMARY | 2025-09-15 18:32 | XMS_ITS | Encounter Summary ---
Author Organization [facility] Address [address] [place] [address] Care Team Providers Care Biscuit Packer Name Role Phone Hal Grove MD Primary Care Provider Encounter Details Date Type Department Care Team ([facility] st Contact Info) Description 01/31/2023 Scanned Document [facility] Neuroscience [facility] [address] [phone] Abdulaziz Clark MD 85 [facility] [address] [place], [place] [id number] Social History Tobacco Use Types Packs/Day Years [...] on filedocumented in this encounter Care Teams Biscuit Packer Relationship Specialty Start Date End Date Hal Grove MD [address] [place] [address] PCP - General Family Medicine 10/15/22 documented as of this encounter
== END 2025-09-15 13:55 | disposition home or self-care (01) ==
LOC: HO.HMCC 12:53
PROVIDERS: PCP Nurse Practitioner Family; Visit Provider Nurse Practitioner Family
DX: Z00.00 Encounter for general adult medical examination without abnormal findings (principal)

== ENCOUNTER 2025-09-16 07:08 | Outpatient (REF) | payer OTHER, MEDICAID, SELFPAY ==
--- OUTSIDE RECORDS SUMMARY | 2016-08-28 09:00 | XMS_ITS | Continuity of Care Document ---
Author Organization [facility] Address [address] [place] [address] Phone Care Team Providers Care Proof Coins Inspector Name Role Phone Unavailable Unavailable Unavailable Allergies, Adverse Reactions, Alerts Substance Reaction Status Criticality No Known Allergies Active No Inform ation Problems Condition Type Effective Dates (start - stop) [facility] [place] Status Comments No Known Problems Procedures Procedure Date URINE TEST, BY VISUAL [facility] MPARISON OFFICE/OUTPATIENT VISIT, [facility] Advance Directives Directive Yes / No Effective Date File Name No Information Encounters Encounter Description Practice Location Reason(s) For Visit Diagnoses Date Provider Providers Copied on Encounter OFFICE/OUTPA TIENT VISIT, [facility], [address] [place], [address], [place] tel:[phone] [facility] Abnormal Menses (chief complaint) Encounter for test, [...] us Payers Payer name Insurance type Covered alliance party ID Authoriza tioriana(s) ILA Mims MC [id number] Social History Type Description Quantity Date Captured [...] initiating any intervention if needed-Recently moved to [place] from [place] 3 months ago, will obtain medical records [...] Mental Status Date Cognitive Assessment Orientation - [place] ed to time, place, person, situation. Patient Care Teams Name Effective Dates (start - stop) Status Members No Information
--- OUTSIDE RECORDS SUMMARY | 2025-09-16 07:13 | XMS_ITS | Encounter Summary ---
Author Organization [facility] Address [address] [place] [address] Care Team Providers Care Horse Show Judge Name Role Phone Hal Grove MD Primary Care Provider Encounter Details Date Type Department Care Team ([facility] st Contact Info) Description 01/28/2023 Scanned Document [facility] Neuroscience [facility] [address] [phone] Abdulaziz Clark MD 85 [facility] 8[address] [place], [place] [id number] Social History Tobacco Use Types Packs/Day Years [...] on filedocumented in this encounter Care Teams Horse Show Judge Relationship Specialty Start Date End Date Hal Grove MD [address] [place] [address] PCP - General Family Medicine 10/15/22 documented as of this encounter
--- OUTSIDE RECORDS SUMMARY | 2025-09-16 07:13 | XMS_ITS | Clinical Summary ---
Author Organization [facility] Address [address] [place] [address] Care Team Providers Care Proc Tech Name Role Phone Hal Grove MD Primary [...] drink = 0.6 oz pur e alcohol) English [place] of Occupat ional Health - Occupational Stress [...] HPV Vaccines (No Doses Required) Completed Insurance [facility] , [address] [place] [phone] [facility] , [address] [place] [phone] [place] [address] WORKER'S COMP [facility] [employer] Advance Directives * Full Code (Latest Code Status on File) Date Activated Date Inactivated Comments 07/26/2022 5:13 AM Care Teams Proc Tech Relationship Specialty Start Date End Date Hal Grove MD [address] [place] [address] PCP - General Family Medicine 10/15/22
--- OUTSIDE RECORDS SUMMARY | 2025-09-16 07:13 | XMS_ITS | Clinical Summary ---
Author Organization [employer] Address [address] [facility] [address] [place] [address] Care Team Providers Care Elementary [employer] Principal Name Role Phone Unavailable Primary Care Provider Unavailabl e Encounters Date Type Department Care Team Description 08/05/2025 10:35 AM EDT Immunization [facility] [address] [place] [address] Elsi Acharya RN Encounter for immunization 08/05/2025 Travel from Last 3 Months Immunizations Immunization Administration Dates Next Due Hep B, adult 01/12/2024,08/08/2023,07/11/2023 Influenza injectable quadriv alent preservative free 11/21/2020,10/29/2017 Influenza, IIV3, injectable 09/08/2015 Influenza, seasonal, injecta ble, preservative free 08/05/2025,07/07/2024 Tdap 01/26/2018 Social History Tobacco Use Types [...] Cancer Screening 2023 HPV/Cotest 2023 COVID-19 Vaccine (3 - season) 2025 04/06/2021, 03/16/2021 DTaP/Tdap/Td Vaccines (2 - Td [...] Completed 01/12/2024, 08/08/2023, 07/11/2023 Influenza Vaccine Completed 08/05/2025, , 07/07/2024, Additional history exists HIB Vaccines Aged Out [...] patient's age to complete this topic Insurance [facility] , [address] [place] [phone]
--- OUTSIDE RECORDS SUMMARY | 2025-09-16 07:13 | XMS_ITS | Encounter Summary ---
Author Organization [facility] Address [address] [place] [address] Care Team Providers Care Transfer Clerk Name Role Phone Hal Grove MD Primary Care Provider Encounter Details Date Type Department Care Team ([facility] st Contact Info) Description 01/31/2023 Scanned Document [facility] [address] [phone] Abdulaziz Clark MD 85 [facility] [address] [place], [place] [phone] Social History Tobacco Use Types Packs/Day Years [...] on filedocumented in this encounter Care Teams Transfer Clerk Relationship Specialty Start Date End Date Hal Grove MD [address] [place] [address] PCP - General Family Medicine 10/15/22 documented as of this encounter
--- OUTSIDE RECORDS SUMMARY | 2025-09-16 07:13 | XMS_ITS | Encounter Summary ---
Author Organization [facility] Address [address] [place] [address] Care Team Providers Care Personal Secretary Name Role Phone Hal Grove MD Primary Care Provider Encounter Details Date Type Department Care Team ([facility] st Contact Info) Description 01/28/2023 Scanned Document [facility] Neuroscience [facility] [address] [phone] Abdulaziz Clark MD [address] [facility] [address] [place], [place] [phone] Social History Tobacco Use Types Packs/Day Years [...] on filedocumented in this encounter Care Teams Personal Secretary Relationship Specialty Start Date End Date Hal Grove MD [address] [place] [address] PCP - General Family Medicine 10/15/22 documented as of this encounter
--- OUTSIDE RECORDS SUMMARY | 2025-09-16 07:13 | XMS_ITS | Clinical Summary ---
Author Organization [facility] ity Address [address] [place] [address] Care Team Providers Care Motion Picture Cameraman Name Role Phone Unavailable Primary Care Provider [...] Depression Screening 10/27/2024 COVID-19 Vaccine (1 - 2024-2 6 season) 2025 Influenza Vaccine (#1) 2025 RSV [...]
--- OUTSIDE RECORDS SUMMARY | 2025-09-16 07:13 | XMS_ITS | Clinical Summary ---
Author Organization [facility] Address [address] [place] [address] Care Team Providers Care Business Broker Name Role Phone Unavailable Primary Care Provider [...]
[2025-09-16 09:58] LABS: MANUAL DIFF FLAG NO
[2025-09-16 10:14] LABS: Appearance Urine Turbid; Glucose Urine UA Negative (Negative); PH 5.0 (5.0-9.0); Specific Gravity - Urine >= 1.030 (1.005-1.025); UMIC TRIGGER UACC YES
[2025-09-16 10:17] LABS: Hematocrit 42.3 % (37.0-47.0); Hemoglobin 14.4 g/dl (12.0-16.0); Imm Gran Abs Auto 0.00 X10*3/uL (0.00-0.03); Imm Gran Pct Auto 0.0 % (0.0-0.4); Lymphocytes Absolute Auto 1.9 X10*3/uL (1.2-4.9); Mean Corpuscular HGB Conc 34.0 g/dl (31.0-35.0); Mean Corpuscular Hemoglobin 30.3 pg (27.0-33.0); Mean Corpuscular Volume 88.9 fL (80.0-98.0); NRBC Abs Auto 0.000 X10*3/uL (0.0-0.012); NRBC Pct Auto 0.0 /100WBC (0.0-0.2); Platelet Count 424 X10*3/uL (160-400); Red Blood Count 4.76 X10*6/uL (4.20-5.50); White Blood Count 5.0 X10*3/uL (4.8-10.8)
[2025-09-16 10:23] LABS: UACC Culture Trigger YES
[2025-09-16 11:16] LABS: Alanine Aminotransferase 32 U/L (0-31); Albumin Level 4.5 g/dL (3.5-5.0); Alkaline Phosphatase 75 U/L (39-117); Anion Gap 9 (12-20); Aspartate Amino Transferase 29 U/L (5-31); Blood Urea Nitrogen 17 mg/dL (9-16); Calcium 9.1 mg/dL (8.4-10.2); Carbon Dioxide 28 mmol/L (22-29); Chloride 108 mmol/L (96-108); Cholesterol 152 mg/dL (<200); Estimated Glomerular Filt Rate > 60; HDL Cholesterol 47 mg/dL (>40); Potassium 4.1 mmol/L (3.3-5.1); Sodium 141 mmol/L (135-145); Total Protein 7.4 g/dL (6.5-8.0); Triglycerides 102 mg/dL (<150)
== END 2025-09-16 07:09 | disposition home or self-care (01) ==
LOC: HO.HMGCLDS 07:08
PROVIDERS: PCP Nurse Practitioner Family; Visit Provider Nurse Practitioner Family
DX: R73.01 Impaired fasting glucose (principal); Z13.29 Encounter for screening for other suspected endocrine disorder; Z13.6 Encounter for screening for cardiovascular disorders; R31.29 Other microscopic hematuria
CPT/HCPCS: 36415; 80053; 80061; 81001; 83036; 84443; 85025; 87086; 87147

== ENCOUNTER 2025-10-24 08:53 | Outpatient (AMB) | payer OTHER, MEDICAID, SELFPAY ==
--- OUTSIDE RECORDS SUMMARY | 2025-10-24 09:03 | XMS_ITS | Encounter Summary ---
Author Organization [facility] Address [address] [place] [address] Care Team Providers Care Parts Analyst Name Role Phone Hal Grove NP Primary Care Provider Encounter Details Date Type Department Care Team ([facility] st Contact Info) Description 01/31/2023 Scanned Document [facility] Neuroscience [facility] [address] [phone] Abdulaziz Clark MD 85 [facility] [address] [place], [place] [phone] Social History Tobacco Use Types Packs/Day Years [...] on filedocumented in this encounter Care Teams Parts Analyst Relationship Specialty Start Date End Date Hal Grove, YIELD CLERK [address] [place] [address] PCP - General Family Medicine 10/15/22 documented as of this encounter
--- OUTSIDE RECORDS SUMMARY | 2025-10-24 09:03 | XMS_ITS | Clinical Summary ---
Author Organization [facility] Address [address] [place] [address] Care Team Providers Care Volcanology Teacher Name Role Phone Hal Grove NP Primary Care Provider Allergies No known active [...] drink = 0.6 oz pur e alcohol) [place] of Occupat ional Health - Occupational Stress [...] 11/21/2020, , 09/08/2015 COVID-19 Vaccine (1 - 2024- season) 2025 HPV Vaccines (No Doses Required) Completed Insurance [facility] , [address] [place] [phone] [facility] , [address] [place] [phone] [place] [address] WORKER'S COMP [facility] WORKER[employer] [place] Directives * Full Code (Latest Code Status on File) Date Activated Date Inactivated Comments 07/26/2022 5:13 AM Care Teams Volcanology Teacher Relationship Specialty Start Date End Date Hal Grove NP [address] [place] [address] PCP - General Family Medicine 10/15/22
--- OUTSIDE RECORDS SUMMARY | 2025-10-24 09:03 | XMS_ITS | Encounter Summary ---
Author Organization [facility] Address [address] [place] [address] Care Team Providers Care Tubular Riveter Name Role Phone Hal Grove NP Primary Care Provider Encounter Details Date Type Department Care Team ([facility] st Contact Info) Description 01/28/2023 Scanned Document [facility] Neuroscience [facility] [address] [phone] Abdulaziz Clark MD 85 [facility] [address] [place], [place] [phone] Social History Tobacco Use Types Packs/Day Years [...] on filedocumented in this encounter Care Teams Tubular Riveter Relationship Specialty Start Date End Date Hal Grove, ACCOUNTANT [address] [place] [address] PCP - General Family Medicine 10/15/22 documented as of this encounter
--- OUTSIDE RECORDS SUMMARY | 2025-10-24 09:03 | XMS_ITS | Clinical Summary ---
Author Organization [facility] it[facility] Address [address] [place] [address] Care Team Providers Care Dry Room Attendant Name Role Phone Unavailable Primary Care Provider [...]
--- OUTSIDE RECORDS SUMMARY | 2025-10-24 09:03 | XMS_ITS | Encounter Summary ---
Author Organization [facility] Address [address] [place] [address] Care Team Providers Care Funeral Service Practitioner/Embalmer Name Role Phone Hal Grove NP Primary Care Provider Encounter Details Date Type Department Care Team ([facility] st Contact Info) Description 01/28/2023 Scanned Document [facility] [address] [phone] Abdulaziz Clark MD 85 [facility] [address] [place], [place] [phone] Social History Tobacco Use Types Packs/Day Years [...] on filedocumented in this encounter Care Teams Funeral Service Practitioner/Embalmer Relationship Specialty Start Date End Date Hal Grove, CONSTRUCTION PLUMBER [address] [place] [address] PCP - General Family Medicine 10/15/22 documented as of this encounter
--- OUTSIDE RECORDS SUMMARY | 2025-10-24 09:03 | XMS_ITS | Clinical Summary ---
Author Organization [employer] Address [address] [facility] [address] [place] [address] Care Team Providers Care Labour Market Economist Name Role Phone Unavailable Primary Care Provider Unavailabl e Encounters Date Type Department Care Team Description 08/05/2025 10:35 AM EDT Immunization [facility] [address] [place] [address] Elsi Acharya RN Encounter for immunization 08/05/2025 [...] patient's age to complete this topic Insurance [facility] , [address] [place] [phone]
--- OUTSIDE RECORDS SUMMARY | 2025-10-24 09:03 | XMS_ITS | Clinical Summary ---
Author Organization [facility] Prior to 03/26/25 Address [address] [place] [address] Care Team Providers Care Fast Food Sales Assistant Name Role Phone Unavailable Primary Care Provider [...]
[2025-10-24 09:32] VITALS: BP 118/80; PULSE 112; TEMP 36.8; O2SAT 96; BMI 41.6
--- NOTE | 2025-10-24 09:32 | AM.OFFWIN_ITS ---
Intake Vital Signs 10/24/25 09:32 Height 5 ft 5 in Weight 250 lb BMI 41.6 BP 118/80 Blood Pressure Location Lt brachial Position Sitting Pulse 112 H Pulse Source Pulse Oximeter Temp 98.2 F Temp Source Oral Pulse Oximetry (%) 96 Oxygen Delivery Method Room Air Intake Visit Reasons: EP chills fever coughing congestion Intake Note: Patient presents c/o flu symptoms - tested positive for Flu A at work today. Patient Tobacco Use Status: Never used Tobacco Allergies erythromycin base Allergy (Severe, Verified 10/24/25 09:35) Watery Eye environmental allergies Allergy (Verified 10/24/25 09:35) Unknown shrimp Allergy (Verified 10/24/25 09:35) Unknown Medication List - Last Reconciled 10/24/25 by Mar Liriano NP acetaminophen 1,000 mg (2 x 500 mg) PO Q6H PRN dextromethorphan-guaifenesin 5-100 mg/5 mL (Robitussin Cough-Chest Congestion DM) 10 mL PO Q4-8H PRN metformin mg PO ONCE oseltamivir (Tamiflu) 75 mg PO BID 5 days vit,[place] [id number] 29 mg iron- 1 mg (Prenatabs Rx) 1 tab PO DAILY tirzepatide (weight loss) (Zepbound) 5 mg (0.5 mL) subcut QWEEK Do you need a note to return to daycare/school/sports/work: Yes HPI HPI Comments History of Present Illness Details 30-year-old female presents to the walk- in clinic with complaints of upper respiratory symptoms for the past 5 days. Patient reports headaches, sore throat, chills, fatigue, generalized body aches, and bilateral ear pain. She states she tested positive for Influenza this morning at her workplace. She presents today requesting a work note and evaluation for Tamiflu. Denies shortness of breath, chest pain, nausea, vomiting, or diarrhea. [facility] Medical History (Updated 10/24/25 @ 10:17 by Mar Liriano NP) Acute respiratory disease Pulmonary embolism SVT (supraventricular tachycardia) Surgical History Hx of prior ablation treatment Family History Father HTN (hypertension) CVD (cardiovascular disease) Diabetes mellitus Mother No problems noted. Sister No problems noted. Maternal Grandfather History of blood clots Social History Housing: House Alcohol intake: current Alcohol intake frequency: does not drink Patient Tobacco Use Status: Never used Tobacco e-Cigarette/Vaping Use: Never Used Second Hand Smoke Exposure: Yes service: No Current occupational status: employed Cognitive needs: No Hearing needs: No Vision needs: Yes Review of Systems Const All systems reviewed & are unremarkable except as noted in HPI and below Physical Exam Vital Signs: Last Vital Signs Temp 98.2 F 10/24/25 09:32 Pulse 112 H 10/24/25 09:32 BP 118/80 10/24/25 09:32 Pulse Ox 96 10/24/25 09:32 Oxygen Delivery Method Room Air 10/24/25 09:32 BMI result Body Mass Index 41.6 Const General: no acute distress; No comfortable Nutritional Appearance: obese Orientation/consciousness: patient oriented x3 HEENT Head: Yes normocephalic Ears: TM abnormal bulging bilateral and with fluid behind the TM bilateral General nose exam: Abnormal mucous membranes and turbinates present boggy and erythematous Face and sinus: Yes sinus tenderness Mouth: moist mucous membranes Throat: Yes uvula midline Resp Effort & Inspection: normal respiratory effort, able to speak in complete sentences and Actively coughing Auscultation: clear to auscultation bilaterally, no crackles, no rales, no rhonchi and no wheezes Cardio Heart sounds: S1 normal heart sound present and S2 normal heart sound present Neuro General: patient oriented x3 Assessment & Plan Assessment & Plan (1) Acute respiratory disease: Code(s): J06.9 - Acute upper respiratory infection, unspecified Plan: Discussed antiviral therapy; patient is outside the recommended 48-hour window for Tamiflu effectiveness. Risks vs. limited benefit reviewed. Ordered Tamiflu per Patient's request Acetaminophen or Ibuprofen for fever, body aches, and headaches Increased fluids and rest Throat lozenges/warm salt water gargles for sore throat Work note provided per patient request Advised to remain out of work until Afebrile for at least 24 hours without antipyretics ER precautions reviewed: worsening symptoms, shortness of breath, chest pain, persistent high fevers, or dehydration Orders: Orders SARS-CoV2/FLU/RSV Today J06.9 - Acute upper respiratory infection, unspecified Medications: New oseltamivir (Tamiflu) 75 mg PO BID 10 caps 0RF 5 days J06.9 - Acute upper respiratory infection, unspecified acetaminophen 1,000 mg (2 x 500 mg) PO Q6H PRN 60 caps 0RF pain J06.9 - Acute upper respiratory infection, unspecified dextromethorphan-guaifenesin 5-100 mg/5 mL (Robitussin Cough-Chest Congestion DM) 10 mL PO Q4-8H PRN 1,000 mL 0RF cough J06.9 - Acute upper respiratory infection, unspecified Coding Level of Care Code Est Pt Level 4 (89321) Diagnoses Acute respiratory disease J06.9 Time Spent (min) 20
== END 2025-10-24 10:16 | disposition home or self-care (01) ==
PROVIDERS: PCP Nurse Practitioner Family; Visit Provider Nurse Practitioner Family
DX: J06.9 Acute upper respiratory infection, unspecified (principal)

== ENCOUNTER 2025-10-24 08:53 | Outpatient (REF) | payer OTHER, MEDICAID, SELFPAY ==
[2025-10-24 14:59] LABS: Resp Syncy Virus RNA Qual PCR NEGATIVE (Negative); SARS COV2 PCR INHOUSE NEGATIVE (Negative)
== END 2025-10-24 08:54 | disposition home or self-care (01) ==
LOC: HO.LAB 08:53
PROVIDERS: PCP Nurse Practitioner Family; Visit Provider Nurse Practitioner Family
DX: J06.9 Acute upper respiratory infection, unspecified (principal)
CPT/HCPCS: 87637